=== PATIENT | female | born 1930 | race Caucasian/White ===

== ENCOUNTER 2018-08-14 15:23 | Observation (INO) | payer MEDICARE, MEDICAID ==
[2018-08-14] MEDS ORDERED: Acetaminophen 325 MG Tab PO PRN (17:09)
[2018-08-14] MEDS ORDERED: Temazepam 15 MG Cap PO PRN (17:09)
[2018-08-14] MEDS ORDERED: Ondansetron 4 MG Tab.DIS PO PRN (17:09)
[2018-08-14] MEDS ORDERED: Sodium Chloride 0.9% 10 ML Syringe FLUSH PRN (17:09)
[2018-08-14] MEDS: Pantoprazole 40 MG Vial IVPUSH SCH (17:59)
[2018-08-14] MEDS ORDERED: Enoxaparin 40 MG/0.4 ML Syringe SUBCUT SCH (20:00)
[2018-08-14] MEDS ORDERED: cefTRIAXone 1 GM Vial IVPUSH SCH (20:00)
[2018-08-14] MEDS ORDERED: Sertraline 25 MG Tab PO SCH (20:00)
[2018-08-15] MEDS: Pantoprazole 40 MG Vial IVPUSH SCH (05:36)
[2018-08-15 07:56] VITALS: BP 122/64
[2018-08-15] MEDS ORDERED: Aspirin 81 MG Tab.Chew PO SCH (08:00)
[2018-08-15] MEDS ORDERED: atorvaSTATin 10 MG Tab PO SCH (08:00)
[2018-08-15] MEDS ORDERED: **PTOM** Lisinopril 20 MG Tab PO SCH (08:00)
[2018-08-15] MEDS: BUDESONIDE IH SCH (09:14)
[2018-08-15] MEDS: FORMOTEROL IH SCH (09:14)
[2018-08-15 10:09] LABS: CHLORIDE,CL 106 mEq/L (98-106); SODIUM,NA 143 mEq/L (136-145)
[2018-08-15] MEDS ORDERED: Albuterol 8 GM Inhaler INH PRN (12:00)
[2018-08-15] MEDS ORDERED: ATORVASTATIN 80 MG PO SCH (20:00)
[2018-08-15] MEDS ORDERED: Pantoprazole 40 MG Vial IVPUSH SCH (20:00)
--- NOTE | 2018-08-15 21:06 | PCM.DCSUM1 ---
Discharge Summary - Hospital Course Free Text/Narrative:: Patient admitted from clinic with TIA. Had been more unsteady in the am, speech not as clear. Family concerned was having another stroke. 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 She has had difficulty with dysphagia at times since the stroke, does have to thicken her liquids at times and remind her to slow down as she does cough a great deal with eating. Admitted for stroke protocol, telemetry and CT scan of her head. Diagnosis: Stroke: No Modified Kings Scale: No Symptoms at All Modified Kings Scale Score: 0 - Discharge Data Discharge Date: 08/15/18 Discharge Disposition: Home, Self-Care 01 Condition: Good - Patient Summary/Data Complications: none Hospital Course: Patient has been stable. CT scan of the head did not show any acute changes. Did have a CVA 2 years ago and again 2 months ago. She did have an echo and CTA of her carotids 2 months ago in [place]. Rhythm appeared negative on exam in clinic, EKG was done with NSR. Telemetry has been regular rhythm. Labs stable. Does continue to have tremors to all 4 extremities at times. Has mild weakness in right arm and leg. Ambulating with walker and staff. Admits to feeling better today. Blood sugars have remained stable. Urine did show small amount of leukocytes so treated with Rocephin Will return home with daughter to care for her. Start Ceftin 250 mg twice a day for 7 days. - Patient Instructions Diet: Usual Diet as Tolerated Activity: As Tolerated - Discharge Plan *PRESCRIPTION DRUG MONITORING PROGRAM REVIEWED*: No *COPY OF PRESCRIPTION DRUG MONITORING REPORT IN PATIENT JUSTINA: No Prescriptions/Med Rec: Cefuroxime Axetil [Ceftin] 250 mg PO BID #14 tablet Home Medications: Home Meds Sertraline HCl [Zoloft] 50 mg PO BEDTIME 12/01/13 [History] Lisinopril [Zestril] 10 mg PO DAILY 04/24/14 [History] Acetaminophen [Tylenol Extra Strength] 500 mg PO Q8H PRN 06/15/16 [History] Budesonide/Formoterol [Symbicort 160-4.5 MCG] 10.2 gm IH ASDIRECTED PRN [History] atorvaSTATin [Lipitor] 80 mg PO BEDTIME 06/15/16 [History] Aspirin 81 mg PO DAILY 12/03/16 [History] Albuterol [Ventolin HFA] 1 puff INH Q6HR PRN 08/15/18 [History] Cefuroxime Axetil [Ceftin] 250 mg PO BID #14 tablet 08/15/18 [Rx] Patient Handouts: Urinary Tract Infection, Adult Referrals: Kehinde Nesbitt MD [Primary Care Provider] - (Follow up with Dr. Nesbitt in 10 days ) - Discharge Summary/Plan Comment DC Time >30 min.: No - General Info Date of Service: 08/15/18 Admission Dx/Problem (Free Text: TIA Functional Status: Reports: Pain Controlled, Tolerating Diet, Ambulating, Urinating - Review of Systems General: Reports: Weakness HEENT: Reports: No Symptoms Pulmonary: Reports: Cough. Denies: Shortness of Breath Cardiovascular: Denies: Chest Pain, Edema, Lightheadedness Gastrointestinal: Denies: Abdominal Pain, Nausea, Vomiting Musculoskeletal: Reports: No Symptoms Neurological: Reports: Pre-Existing Deficit - Patient Data Vitals - Most Recent: Last Vital Signs Temp 98.1 F 08/15/18 07:55 Pulse 62 08/15/18 07:55 Resp 20 08/15/18 07:55 BP 122/64 08/15/18 08:18 Pulse Ox 94 L 08/15/18 07:55 Weight - Most Recent: 140 lb 1.6 oz Lab Results - Last 24 hrs: Laboratory Results - last 24 hr 08/14/18 08/15/18 Range/Units 17:38 07:39 Sodium 143 (136-145) mEq/L Potassium 4.5 (3.5-5.0) mEq/L Chloride 106 (98-106) mEq/L POC Glucose 73 L (75-105) mg/dl CHRIS Results - Last 24 hrs: Microbiology 08/14/18 19:25 Urine Culture - Preliminary Urine, Voided Gram Negative Rods Med Orders - Current: Current Medications Discontinued Medications Acetaminophen (Tylenol) 650 mg PO Q4H PRN PRN Reason: Pain (Mild 1-3)/fever Albuterol (Ventolin Hfa) 0 gm INH Q6H PRN PRN Reason: Shortness of Breath Aspirin (Aspirin) 81 mg PO DAILY [facility] Last Admin: 08/15/18 07:35 Dose: 81 mg Atorvastatin Calcium (Lipitor) 80 mg PO DAILY [facility] Last Admin: 08/15/18 08:37 Dose: Not Given Ceftriaxone Sodium (Rocephin) 1 gm IVPUSH Q24H [facility] Last Admin: 08/14/18 19:49 Dose: 1 gm Enoxaparin Sodium (Lovenox) 40 mg SUBCUT BEDTIME [facility] Last Admin: 08/14/18 19:49 Dose: 40 mg Lisinopril (Prinivil) 10 mg PO DAILY [facility] Last Admin: 08/15/18 08:18 Dose: 10 mg Ptom Budesonide/Formoterol 160mcg/4. 5mcg Inh 0 gm IH BID [facility] Last Admin: 08/15/18 09:14 Dose: Not Given Ptom Atorvastatin 80 Mg Tab 80 mg PO BEDTIME [facility] Ondansetron HCl (Zofran Odt) 4 mg PO Q4H PRN PRN Reason: nausea, able to take PO Last Admin: 08/14/18 19:55 Dose: 4 mg Pantoprazole Sodium (Protonix Iv) 40 mg IVPUSH Q12H [facility] Last Admin: 08/15/18 05:36 Dose: 40 mg Pantoprazole Sodium (Protonix Iv) 40 mg IVPUSH 08,1999 [facility] Sertraline HCl (Zoloft) 50 mg PO BEDTIME [facility] Last Admin: 08/15/18 08:11 Dose: Not Given Sodium Chloride (Saline Flush) 10 ml FLUSH ASDIRECTED PRN PRN Reason: Keep Vein Open Temazepam (Restoril) 15 mg PO BEDTIME PRN PRN Reason: Sleep - Exam General: Reports: Alert, Oriented HEENT: Reports: Mucous Membr. Moist/[place]: Reports: Supple Lungs: Reports: Clear to Auscultation, Normal Respiratory Effort Cardiovascular: Reports: Regular Rate, Regular Rhythm GI/Abdominal Exam: Normal Bowel Sounds, Soft, Non-Tender Extremities: Normal Inspection, No Pedal Edema Skin: Reports: Warm, Dry Neurological: Reports: Other (mild weakness noted in right arm and leg)
== END 2018-08-15 09:40 | disposition home or self-care (01) ==
LOC: UNDOADMOB 15:23 → CC.MS 15:23
PROVIDERS: ADMIT Family Medicine; ATTEND Family Medicine
DX: G45.9 Transient cerebral ischemic attack, unspecified (principal); I10 Essential (primary) hypertension; E78.5 Hyperlipidemia, unspecified; J44.9 Chronic obstructive pulmonary disease, unspecified; E11.9 Type 2 diabetes mellitus without complications; F32.9 Major depressive disorder, single episode, unspecified; E53.8 Deficiency of other specified B group vitamins; Z86.73 Personal history of transient ischemic attack (TIA), and cerebral infarction without residual deficits; Z79.82 Long term (current) use of aspirin; Z79.899 Other long term (current) drug therapy
CPT/HCPCS: 36415; 70450; 80053; 81001; 82550; 82962; 85025; 87086; 87088; 87186; 93005; 93010; 96372; 96374; 96375; 96376; 99217; 99220; A9270; C9113; G0378; J0696; J1650

== ENCOUNTER 2020-10-02 01:22 | Inpatient (IN) | payer MEDICARE, MEDICAID ==
[2020-10-02 02:07] LABS: CHLORIDE,CL 99 mEq/L (98-106); SODIUM,NA 136 mEq/L (136-145)
--- NOTE | 2020-10-02 02:19 | EDM.PDOC ---
ED HPI GENERAL MEDICAL PROBLEM - General Chief Complaint: General Stated Complaint: general Time Seen by Provider: 10/02/20 01:30 Source of Information: Reports: EMS, RN History Limitations: Reports: Altered Mental Status, Uncooperative - History of Present Illness INITIAL COMMENTS - FREE TEXT/NARRATIVE: Pt was brought in by [facility]. Family called the ambulance because she wasn't acting her normal. wanted to stay covered up and tucked in. Wasn't as cooperative, and couldn't get her up to do anything. They were unsure of why they were trying to get her up at 2330. Family states that the last known well that they reported to the ambulance was 2330. She has history of TIA in the past and they are concerned that she had stroke. EMS relates that the house is very unkept. Family is not available to ask questions to and phone number on paperwork is disconnected. Family told the EMS crew that she does not take any prescription meds but her clinic chart states that she should be on lisinopril, atorvastatin, ASA, sertraline, plavix, symbicort and proair. They did bring in a bag of OTC supplements. She is moving all extremities on arrival. The words that she does say are not slurred. 0300-Daughter Carri did call the ER and she states that they had been living on the streets homeless in [place] for 8.5 months and that she doesn't have medicaid at this time so she hasn't been in to clinic. She hasn't given her any prescription meds in some time because she was out of them. She states that the Plavix was stopped in [place] and was told to take baby ASA. She states that tonight she had checked on her at 2330 and that she was sleeping and breathing and then shortly after that she had gotten up to the bathroom and was acting confused and not making any sense and just wanted to go back to bed. She ate normal meal at 1800 tonight and typically drinks well. Daughter states that she uses the wheelchair most of the time but can walk with the walker for short periods. She says that she needs some assistance off the toilet at times but can wipe herself and does have accidents at times. Does wear incontinence pad. Denies that she has fallen recently. She denies that she has been coughing or had any complaints at home prior to the confusion. EMS reports that she did have an emesis in the ambulance enroute. Onset: Unknown/Unsure Location: Reports: Generalized - Related Data Allergies Allergy/AdvReac Type Severity Reaction Status Date / Time aresols Allergy Difficulty Uncoded 10/02/20 03:34 Breathing Home Meds: Home Meds Acetaminophen [Tylenol Extra Strength] 500 mg PO Q8H PRN 06/15/16 [History] Aspirin 81 mg PO DAILY 12/03/16 [History] Past Medical History HEENT History: Reports: Allergic Rhinitis, Glaucoma, Impaired Vision Other HEENT History: wears glasses Cardiovascular History: Reports: CAD, High Cholesterol, Hypertension Respiratory History: Reports: Asthma, COPD Gastrointestinal History: Reports: None, GERD Genitourinary History: Reports: Other (See Below) Other Genitourinary History: frequency due to weak bladder Musculoskeletal History: Reports: Back Pain, Chronic Neurological History: Reports: CVA, Headaches, Chronic Psychiatric History: Reports: Depression Endocrine/Metabolic History: Reports: Diabetes, Type II Hematologic History: Reports: Blood Transfusion(s) Immunologic History: Reports: None Oncologic (Cancer) History: Reports: Breast Dermatologic History: Reports: None - Infectious Disease History Infectious Disease History: Reports: MRSA, Other (See Below) Other Infectious Disease History: Cleared MRSA x3 - Past Surgical History Head Surgeries/Procedures: Reports: None GI Surgical History: Reports: Appendectomy, Cholecystectomy Musculoskeletal Surgical History: Reports: Knee Replacement Social & Family History - Caffeine Use Caffeine Use: Reports: Coffee, Soda, Tea - Living Situation & Occupation Living situation: Reports: , Other (living in a house in [place] currently with up to 15 people living in it.) ED ROS GENERAL - Review of Systems Review Of Systems: See Below Constitutional: Reports: Fever, Chills, Weakness HEENT: Reports: No Symptoms Respiratory: Denies: Shortness of Breath, Cough Cardiovascular: Reports: No Symptoms GI/Abdominal: Reports: Nausea, Vomiting : Reports: No Symptoms Musculoskeletal: Reports: No Symptoms Skin: Reports: No Symptoms Neurological: Reports: Confusion Psychiatric: Reports: Agitation, Confusion ED EXAM, GENERAL - Physical Exam Exam: See Below Exam Limited By: No Limitations General Appearance: Alert, Mild Distress Ear Exam: Bilateral Ear: TM normal Nose: Normal Inspection Throat/Mouth: Normal Inspection Head: Atraumatic Neck: Normal Inspection, Supple Respiratory/Chest: No Respiratory Distress, Lungs Clear, Normal Breath Sounds Cardiovascular: Regular Rate, Rhythm GI/Abdominal: Normal Bowel Sounds, Soft, Non-Tender, Other (dry heaving with small amount of emesis.) Extremities: Pedal Edema (2+ edema noted bilaterally) Neurological: Alert, Confused, Disoriented, Slow to Respond Skin Exam: Warm, Dry, Intact Course - Vital Signs Last Recorded V/S: Last Vital Signs Temp 101.7 F H 10/02/20 06:05 Pulse 81 10/02/20 06:05 Resp 20 10/02/20 06:05 BP 107/48 L 10/02/20 06:05 Pulse Ox 95 10/02/20 06:05 - Orders/Labs/Meds Orders: Active Orders 24 hr Category Date Time Status Chest 1V Frontal [CR] Stat Exams 10/02/20 03:08 Taken Head wo Cont [CT] Stat Exams 10/02/20 02:23 Taken CULTURE BLOOD [BC] Routine Lab 10/02/20 03:36 Received CULTURE BLOOD [BC] Routine Lab 10/02/20 03:36 Received Ondansetron [Zofran] Med 10/02/20 03:08 Active 4 mg IVPUSH Q6H PRN Sodium Chloride 0.9% [Normal Saline] 1,000 ml Med 10/02/20 03:15 Active IV ASDIRECTED Medication Orders Acetaminophen (Tylenol) 650 mg PO Q4H PRN PRN Reason: Pain (Mild 1-3)/fever Acetaminophen (Tylenol Extra Strength) 500 mg PO Q8H PRN PRN Reason: Pain Aspirin (Halfprin) 81 mg PO DAILY [facility] Ceftriaxone Sodium (Rocephin) 1 gm IVPUSH Q24H [facility] Last Admin: 10/02/20 04:44 Dose: 1 gm Documented by: BASIL Enoxaparin Sodium (Lovenox) 30 mg SUBCUT Q24H [facility] Last Admin: 10/02/20 04:45 Dose: 30 mg Documented by: BASIL Sodium Chloride (Normal Saline) 1,000 mls @ 75 mls/hr IV ASDIRECTED [facility] Last Admin: 10/02/20 03:42 Dose: 75 mls/hr Documented by: BASIL Lisinopril (Prinivil) 20 mg PO DAILY [facility] Last Admin: 10/02/20 04:48 Dose: Not Given Documented by: BASIL Ondansetron HCl (Zofran) 4 mg IVPUSH Q6H PRN PRN Reason: Nausea Last Admin: 10/02/20 03:11 Dose: 4 mg Documented by: BASIL Pantoprazole Sodium (Protonix Iv) 40 mg IVPUSH Q12H [facility] Last Admin: 10/02/20 04:40 Dose: 40 mg Documented by: BASIL Labs: Laboratory Tests 10/02/20 10/02/20 10/02/20 Range/Units 01:23 01:23 01:23 WBC 12.2 H (5.0-10.0) 10^3/uL RBC 4.84 (4.00-5.50) 10^6/uL Hgb 15.2 (12.0-16.0) g/dL Hct 46.7 (37.0-47.0) % MCV 96.5 H (82.0-94.0) fL MCH 31.4 (27.0-32.0) pg MCHC 32.5 L (33.0-38.0) g/dL RDW Coeff of Sylvie 14.2 (11.0-15.0) % Plt Count 197 (150-400) 10^3/uL Neut % (Auto) 80.4 (35-85) % Lymph % (Auto) 12.9 (10-55) % [place] % (Auto) 5.7 (0-16) % Eos % (Auto) 0.8 (0-5) % Baso % (Auto) 0.2 (0-3) % Neut # (Auto) 9.79 H (1.80-7.00) 10^3/uL Lymph # (Auto) 1.57 (1.00-4.80) 10^3/uL [place] # (Auto) 0.69 (0.00-0.80) 10^3/uL Eos # (Auto) 0.10 (0.00-0.45) 10^3/uL Baso # (Auto) 0.02 10^3/uL Sodium 136 (136-145) mEq/L Potassium 3.7 (3.5-5.0) mEq/L Chloride 99 (98-106) mEq/L Carbon Dioxide 29 (21-32) mmol/L BUN 15 (7-18) mg/dL Creatinine 0.9 (0.6-1.0) mg/dL Est Cr Clr Drug Dosing TNP Estimated GFR (MDRD) 59 L (>=60) mL/min Glucose 127 H D (75-99) mg/dL Calcium 9.3 (8.4-10.1) mg/dL Total Bilirubin 0.6 (0.0-1.0) mg/dL AST 17 (15-37) U/L ALT 13 (12-78) U/L Alkaline Phosphatase 102 (46-116) U/L C-Reactive Protein 0.2 (0.2-0.8) mg/dL Total Protein 7.6 (6.4-8.2) g/dL Albumin 3.5 (3.4-5.0) g/dL Urine Color Yellow (YELLOW) Urine Appearance Clear (CLEAR) Urine pH 8.5 H (4.5-8.0) Ur Specific Priddy 1.020 (1.003-1.020) Urine Protein Trace H (NEGATIVE) mg/dL Urine Glucose (UA) Negative (NEGATIVE) mg/dL Urine Ketones 15 H (NEGATIVE) mg/dL Urine Occult Blood Trace-lysed H (NEGATIVE) Urine Nitrite Negative (NEGATIVE) Urine Bilirubin Negative (NEGATIVE) Urine Urobilinogen 0.2 (0.2-1.0) EU/dL Ur Leukocyte Esterase Negative (NEGATIVE) Urine RBC 0-5 (0-5) /HPF Urine WBC Not seen (0-5) /HPF SARS CoV-2 RNA Rapid COLIN (NEGATIVE) 10/02/20 Range/Units 02:08 WBC (5.0-10.0) 10^3/uL RBC (4.00-5.50) 10^6/uL Hgb (12.0-16.0) g/dL Hct (37.0-47.0) % MCV (82.0-94.0) fL MCH (27.0-32.0) pg MCHC (33.0-38.0) g/dL RDW Coeff of Sylvie (11.0-15.0) % Plt Count (150-400) 10^3/uL Neut % (Auto) (35-85) % Lymph % (Auto) (10-55) % [place] % (Auto) (0-16) % Eos % (Auto) (0-5) % Baso % (Auto) (0-3) % Neut # (Auto) (1.80-7.00) 10^3/uL Lymph # (Auto) (1.00-4.80) 10^3/uL [place] # (Auto) (0.00-0.80) 10^3/uL Eos # (Auto) (0.00-0.45) 10^3/uL Baso # (Auto) 10^3/uL Sodium (136-145) mEq/L Potassium (3.5-5.0) mEq/L Chloride (98-106) mEq/L Carbon Dioxide (21-32) mmol/L BUN (7-18) mg/dL Creatinine (0.6-1.0) mg/dL Est Cr Clr Drug Dosing Estimated GFR (MDRD) (>=60) mL/min Glucose (75-99) mg/dL Calcium (8.4-10.1) mg/dL Total Bilirubin (0.0-1.0) mg/dL AST (15-37) U/L ALT (12-78) U/L Alkaline Phosphatase (46-116) U/L C-Reactive Protein (0.2-0.8) mg/dL Total Protein (6.4-8.2) g/dL Albumin (3.4-5.0) g/dL Urine Color (YELLOW) Urine Appearance (CLEAR) Urine pH (4.5-8.0) Ur Specific Priddy (1.003-1.020) Urine Protein (NEGATIVE) mg/dL Urine Glucose (UA) (NEGATIVE) mg/dL Urine Ketones (NEGATIVE) mg/dL Urine Occult Blood (NEGATIVE) Urine Nitrite (NEGATIVE) Urine Bilirubin (NEGATIVE) Urine Urobilinogen (0.2-1.0) EU/dL Ur Leukocyte Esterase (NEGATIVE) Urine RBC (0-5) /HPF Urine WBC (0-5) /HPF SARS CoV-2 RNA Rapid COLIN Negative (NEGATIVE) Meds: Medications Generic Name Dose Route Start Last Admin Trade Name Freq PRN Reason Stop Dose Admin Acetaminophen 650 mg 10/02/20 03:51 Tylenol PO Q4H PRN Pain (Mild 1-3)/fever Acetaminophen 500 mg 10/02/20 03:57 Tylenol Extra Strength PO Q8H PRN Pain Aspirin 81 mg 10/02/20 08:00 Halfprin PO DAILY [facility] Ceftriaxone Sodium 1 gm 10/02/20 04:00 10/02/20 04:44 Rocephin IVPUSH 1 gm Q24H [facility] Administration Enoxaparin Sodium 30 mg 10/02/20 04:00 10/02/20 04:45 Lovenox SUBCUT 30 mg Q24H [facility] Administration Sodium Chloride 1,000 mls @ 75 mls/hr 10/02/20 03:15 10/02/20 03:42 Normal Saline IV 75 mls/hr ASDIRECTED [facility] Administration Lisinopril 20 mg 10/02/20 04:00 10/02/20 04:48 Prinivil PO Not Given DAILY [facility] Ondansetron HCl 4 mg 10/02/20 03:08 10/02/20 03:11 Zofran IVPUSH 4 mg Q6H PRN Administration Nausea Pantoprazole Sodium 40 mg 10/02/20 04:00 10/02/20 04:40 Protonix Iv IVPUSH 40 mg Q12H [facility] Administration Discontinued Medications Generic Name Dose Route Start Last Admin Trade Name Freq PRN Reason Stop Dose Admin Acetaminophen 650 mg 10/02/20 04:24 10/02/20 04:48 Tylenol RECTAL 10/02/20 04:25 650 mg NOW ONE Administration Iopamidol 100 ml 10/02/20 07:13 [id number] (76%) IVPUSH 10/02/20 07:14 ONETIME ONE Labetalol HCl 20 mg 10/02/20 04:24 10/02/20 04:36 Normodyne IVPUSH 10/02/20 04:25 20 mg ONETIME ONE Administration Protocol - Re-Assessments/Exams Free Text/Narrative Re-Assessment/Exam: 10/02/20 03:31 Temp did go to 101.2- blood cultures were drawn. CXR and CT head are completed. pt will be admitted to acute status to work up the fever of unknown origin. Departure - Departure Time of Disposition: 03:30 Disposition: Admitted As Inpatient 68 Condition: Poor Clinical Impression: Fever, unknown origin, Confusion, Weakness - Discharge Information *PRESCRIPTION DRUG MONITORING PROGRAM REVIEWED*: Not Applicable *COPY OF PRESCRIPTION DRUG MONITORING REPORT IN PATIENT JUSTINA: Not Applicable Sepsis Event Note (ED) - Focused Exam Vital Signs: Vital Signs Temp Pulse Resp BP Pulse Ox 10/02/20 03:07 101.2 F H 102 H 24 H 187/99 H 91 L 10/02/20 02:27 190/90 H 10/02/20 01:53 106 H 32 H 93 L 10/02/20 01:35 100.1 F 103 H 94 L - Problem List & Annotations (1) Fever, unknown origin SNOMED Code(s): 7825037 Code(s): R50.9 - FEVER, UNSPECIFIED Status: Acute Priority: High Current Visit: Yes (2) Confusion SNOMED Code(s): 794346755 Code(s): R41.0 - DISORIENTATION, UNSPECIFIED Status: Acute Priority: High Current Visit: Yes (3) Weakness SNOMED Code(s): 69224718 Code(s): R53.1 - WEAKNESS Status: Acute Priority: High Current Visit: Yes - Problem List Review Problem List Initiated/Reviewed/Updated: Yes - My Orders Last 24 Hours: My Active Orders 10/02/20 02:23 Head wo Cont [CT] Stat 10/02/20 03:08 Chest 1V Frontal [CR] Stat Ondansetron [Zofran] 4 mg IVPUSH Q6H PRN 10/02/20 03:15 Sodium Chloride 0.9% [Normal Saline] 1,000 ml IV ASDIRECTED 10/02/20 03:36 CULTURE BLOOD [BC] Routine CULTURE BLOOD [BC] Routine - Assessment/Plan Admission H&P: Please use this note as an admission H&P Last 24 Hours: My Active Orders 10/02/20 02:23 Head wo Cont [CT] Stat 10/02/20 03:08 Chest 1V Frontal [CR] Stat Ondansetron [Zofran] 4 mg IVPUSH Q6H PRN 10/02/20 03:15 Sodium Chloride 0.9% [Normal Saline] 1,000 ml IV ASDIRECTED 10/02/20 03:36 CULTURE BLOOD [BC] Routine CULTURE BLOOD [BC] Routine Plan: Will be admitted to the hospital for further workup of fever of unknown origin. Will start IV antibiotics while blood cultures are pending. UA is negative at this time. will do follow up labs as needed. WIll start IV fluids to maintain hydration due to the vomiting and nausea.
[2020-10-02] MEDS ORDERED: Ondansetron 4 MG/2 ML SDV IVPUSH PRN (03:08)
[2020-10-02] MEDS: Sodium Chloride 0.9% 1,000 ML IV SCH ×2 (03:42→19:42)
[2020-10-02] MEDS ORDERED: Acetaminophen 325 MG Tab PO PRN (03:51)
[2020-10-02] MEDS ORDERED: Acetaminophen 500 MG Tab PO PRN (03:57)
[2020-10-02] MEDS ORDERED: Acetaminophen 650 MG Supp RECTAL ONE (04:24)
[2020-10-02] MEDS ORDERED: Labetalol 100 MG/20 ML MDV IVPUSH ONE (04:24)
[2020-10-02] MEDS: Pantoprazole 40 MG Vial IVPUSH SCH ×2 (04:40→16:59)
[2020-10-02] MEDS: cefTRIAXone 1 GM Vial IVPUSH SCH (04:44)
[2020-10-02] MEDS: Enoxaparin 30 MG/0.3 ML Syringe SUBCUT SCH (04:45)
[2020-10-02] MEDS: Lisinopril 20 MG Tab PO SCH ×2 (04:48→08:37)
[2020-10-02] MEDS ORDERED: Iopamidol 755 Mg/ML 100 ML Bottle IVPUSH ONE (07:13)
[2020-10-02] MEDS: Aspirin 81 MG Tab.EC PO SCH (08:35)
[2020-10-02] MEDS ORDERED: Clopidogrel 75 MG Tab PO SCH (13:15)
[2020-10-02] MEDS: Formoterol/Mometasone 200-5 MCG 8.8 GM Inhaler IH SCH (19:41)
[2020-10-02] MEDS: Clopidogrel 75 MG Tab PO SCH (19:41)
[2020-10-03] MEDS: Pantoprazole 40 MG Vial IVPUSH SCH ×2 (04:05→16:23)
[2020-10-03] MEDS: Enoxaparin 30 MG/0.3 ML Syringe SUBCUT SCH (04:05)
[2020-10-03] MEDS: cefTRIAXone 1 GM Vial IVPUSH SCH (04:05)
[2020-10-03] MEDS: atorvaSTATin 20 MG Tab PO SCH (07:58)
[2020-10-03] MEDS: Aspirin 81 MG Tab.EC PO SCH (07:58)
[2020-10-03] MEDS: Formoterol/Mometasone 200-5 MCG 8.8 GM Inhaler IH SCH ×2 (07:59→19:45)
[2020-10-03] MEDS: Lisinopril 10 MG Tab PO SCH (08:41)
--- NOTE | 2020-10-03 11:26 | PCM.PN ---
- General Info Date of Service: 10/03/20 Admission Dx/Problem (Free Text): Fever of unknown origin Confusion Weakness Subjective Update: Patient is alert, up in chair this am. Ambulated to bathroom and had a shower. Denies any pain. No shortness of breath or chest discomfort. Is oriented and answers all questions today. Admits to having some difficulty with meals and intake due to stroke 5 years ago. Has no teeth and dysphagia, does well with pureed foods. Functional Status: Reports: Pain Controlled, Tolerating Diet, Ambulating, Urinating - Review of Systems General: Reports: Fatigue, Malaise. Denies: Fever HEENT: Denies: Ear Pain, Sinus Congestion, Sore Throat Pulmonary: Denies: Shortness of Breath, Cough Cardiovascular: Reports: Edema (patient states chronic edema in legs. "they tell me to elevate above my heart but I don't physically think that is possible"). Denies: Chest Pain, Lightheadedness Gastrointestinal: Denies: Abdominal Pain, Nausea, Vomiting Genitourinary: Denies: Dysuria, Frequency Musculoskeletal: Reports: No Symptoms Skin: Reports: No Symptoms Neurological: Reports: Weakness - Patient Data Vitals - Most Recent: Last Vital Signs Temp 97.8 F 10/03/20 07:57 Pulse 62 10/03/20 07:57 Resp 18 10/03/20 07:57 BP 114/48 L 10/03/20 08:41 Pulse Ox 97 10/03/20 07:57 Weight - Most Recent: 116 lb 1.6 oz I&O - Last 24 Hours: Intake & Output 10/02/20 10/03/20 10/03/20 22:59 06:59 14:59 Intake Total 1400 115 Output Total 400 Balance 1400 -285 Lab Results Last 24 Hours: Laboratory Results - last 24 hr 10/03/20 10/03/20 Range/Units 07:00 07:00 WBC 7.3 (5.0-10.0) 10^3/uL RBC 4.06 (4.00-5.50) 10^6/uL Hgb 12.8 (12.0-16.0) g/dL Hct 39.7 (37.0-47.0) % MCV 97.8 H (82.0-94.0) fL MCH 31.5 (27.0-32.0) pg MCHC 32.2 L (33.0-38.0) g/dL RDW Coeff of Sylvie 14.5 (11.0-15.0) % Plt Count 159 (150-400) 10^3/uL Neut % (Auto) 67.7 (35-85) % Lymph % (Auto) 22.6 (10-55) % Cowley % (Auto) 7.9 (0-16) % Eos % (Auto) 1.5 (0-5) % Baso % (Auto) 0.3 (0-3) % Neut # (Auto) 4.97 (1.80-7.00) 10^3/uL Lymph # (Auto) 1.66 (1.00-4.80) 10^3/uL Cowley # (Auto) 0.58 (0.00-0.80) 10^3/uL Eos # (Auto) 0.11 (0.00-0.45) 10^3/uL Baso # (Auto) 0.02 10^3/uL Sodium 140 (136-145) mEq/L Potassium 3.5 (3.5-5.0) mEq/L Chloride 107 H (98-106) mEq/L Carbon Dioxide 30 (21-32) mmol/L BUN 21 H (7-18) mg/dL Creatinine 1.0 (0.6-1.0) mg/dL Est Cr Clr Drug Dosing 30.76 mL/min Estimated GFR (MDRD) 52 L (>=60) mL/min Glucose 99 (75-99) mg/dL Calcium 7.9 L (8.4-10.1) mg/dL Vitamin B12 194 (193-986) PG/ML Drew Results Last 24 Hours: Microbiology 10/02/20 03:36 Aerobic Blood Culture - Preliminary Blood NO GROWTH AFTER 1 DAY Anaerobic Blood Culture - Final 10/02/20 03:36 Aerobic Blood Culture - Preliminary Blood NO GROWTH AFTER 1 DAY Anaerobic Blood Culture - Final Med Orders - Current: Current Medications Acetaminophen (Tylenol) 650 mg PO Q4H PRN PRN Reason: Pain (Mild 1-3)/fever Aspirin (Halfprin) 81 mg PO DAILY [facility] Last Admin: 10/03/20 07:58 Dose: 81 mg Documented by: Atorvastatin Calcium (Lipitor) 40 mg PO DAILY [facility] Last Admin: 10/03/20 07:58 Dose: 40 mg Documented by: Ceftriaxone Sodium (Rocephin) 1 gm IVPUSH Q24H [facility] Last Admin: 10/03/20 04:05 Dose: 1 gm Documented by: Clopidogrel Bisulfate (Plavix) 75 mg PO DAILY@1999 [facility] Last Admin: 10/02/20 19:41 Dose: 75 mg Documented by: Enoxaparin Sodium (Lovenox) 30 mg SUBCUT Q24H [facility] Last Admin: 10/03/20 04:05 Dose: 30 mg Documented by: Sodium Chloride (Normal Saline) 1,000 mls @ 75 mls/hr IV ASDIRECTED [facility] Last Admin: 10/02/20 19:42 Dose: 75 mls/hr Documented by: Lisinopril (Prinivil) 10 mg PO DAILY [facility] Last Admin: 10/03/20 08:41 Dose: Not Given Documented by: Mometasone Furoate/Formoterol Fumar (Dulera 200-5 Mcg) 2 puff IH BID [facility] Last Admin: 10/03/20 07:59 Dose: 2 puff Documented by: Ondansetron HCl (Zofran) 4 mg IVPUSH Q6H PRN PRN Reason: Nausea Last Admin: 10/02/20 03:11 Dose: 4 mg Documented by: Pantoprazole Sodium (Protonix Iv) 40 mg IVPUSH Q12H [facility] Last Admin: 10/03/20 04:05 Dose: 40 mg Documented by: Discontinued Medications Acetaminophen (Tylenol Extra Strength) 500 mg PO Q8H PRN PRN Reason: Pain Acetaminophen (Tylenol) 650 mg RECTAL NOW ONE Stop: 10/02/20 04:25 Last Admin: 10/02/20 04:48 Dose: 650 mg Documented by: Clopidogrel Bisulfate (Plavix) 75 mg PO DAILY [facility] Last Admin: 10/02/20 17:09 Dose: Not Given Documented by: Iopamidol (Isovue-370 (76%)) 100 ml IVPUSH ONETIME ONE Stop: 10/02/20 07:14 Last Admin: 10/02/20 08:33 Dose: 100 ml Documented by: Labetalol HCl (Normodyne) 20 mg IVPUSH ONETIME ONE; Protocol Stop: 10/02/20 04:25 Last Admin: 10/02/20 04:36 Dose: 20 mg Documented by: Lisinopril (Prinivil) 20 mg PO DAILY [facility] Last Admin: 10/02/20 08:37 Dose: 20 mg Documented by: - Exam General: Alert, Oriented, Cooperative HEENT: Mucous Membr. Moist/[place]ki Neck: Supple Lungs: Clear to Auscultation, Normal Respiratory Effort Cardiovascular: Regular Rate, Regular Rhythm GI/Abdominal Exam: Normal Bowel Sounds, Soft, Non-Tender Extremities: Pedal Edema (has some redness to right ankle/foot, no open areas, no warmth. ) Skin: Warm, Dry Neurological: No New Focal Deficit Sepsis Event Note - Evaluation Sepsis Screening Result: No Definite Risk - Focused Exam Vital Signs: Vital Signs Temp Pulse Resp BP BP BP Pulse Ox 10/03/20 08:41 114/48 L 10/03/20 07:57 97.8 F 62 18 114/48 L 97 10/03/20 04:00 97.4 F 67 18 128/58 L 95 10/03/20 03:52 95 10/03/20 00:00 98.1 F 72 18 122/55 L 97 - Problem List & Annotations (1) Confusion SNOMED Code(s): 186101113 Code(s): R41.0 - DISORIENTATION, UNSPECIFIED Status: Acute Priority: High Current Visit: Yes (2) Fever, unknown origin SNOMED Code(s): 1363222 Code(s): R50.9 - FEVER, UNSPECIFIED Status: Acute Priority: High Current Visit: Yes (3) Weakness SNOMED Code(s): 00391393 Code(s): R53.1 - WEAKNESS Status: Acute Priority: High Current Visit: Yes - Problem List Review Problem List Initiated/Reviewed/Updated: Yes - Assessment Assessment:: Fever of unknown origin Weakness Confusion - Plan Plan:: Patient much improved today. Labs are all stable. Eating well. Will stop IV fluids. Encourage ambulation. Continue to follow.
[2020-10-03] MEDS: Clopidogrel 75 MG Tab PO SCH (19:44)
[2020-10-04] MEDS: cefTRIAXone 1 GM Vial IVPUSH SCH (04:12)
[2020-10-04] MEDS: Enoxaparin 30 MG/0.3 ML Syringe SUBCUT SCH (04:12)
[2020-10-04] MEDS: Pantoprazole 40 MG Vial IVPUSH SCH ×2 (04:12→16:35)
[2020-10-04 07:13] LABS: CHLORIDE,CL 112 mEq/L (98-106); SODIUM,NA 148 mEq/L (136-145)
[2020-10-04] MEDS: atorvaSTATin 20 MG Tab PO SCH (07:26)
[2020-10-04] MEDS: Lisinopril 10 MG Tab PO SCH (07:26)
[2020-10-04] MEDS: Aspirin 81 MG Tab.EC PO SCH (07:26)
[2020-10-04] MEDS: Formoterol/Mometasone 200-5 MCG 8.8 GM Inhaler IH SCH ×2 (07:35→19:50)
--- NOTE | 2020-10-04 10:08 | PCM.PN ---
- General Info Date of Service: 10/04/20 Admission Dx/Problem (Free Text): Fever of unknown origin Confusion Weakness Subjective Update: Patient is alert, up in chair this am. Ambulated to bathroom and had a shower. Denies any pain. No shortness of breath or chest discomfort. Is oriented and answers all questions today. Admits to having some difficulty with meals and intake due to stroke 5 years ago. Has no teeth and dysphagia, does well with pureed foods. 10-04-2020 Patient is feeling good this am. Alert and oriented, appropriate with conversation. Aware of what vital signs even were last night. Denies any shortness of breath, chest pain, nausea or vomiting. No abdominal pain. Good appetite, feeds self. Ambulates in room without difficult. Functional Status: Reports: Pain Controlled, Tolerating Diet, Ambulating, Urinating - Review of Systems General: Denies: Fever, Weakness, Fatigue, Malaise HEENT: Reports: No Symptoms Pulmonary: Denies: Shortness of Breath, Cough Cardiovascular: Denies: Chest Pain, Edema, Lightheadedness Gastrointestinal: Denies: Abdominal Pain, Nausea, Vomiting Genitourinary: Reports: No Symptoms Musculoskeletal: Reports: No Symptoms Skin: Reports: No Symptoms Neurological: Reports: No Symptoms - Patient Data Vitals - Most Recent: Last Vital Signs Temp 98.6 F 10/04/20 07:29 Pulse 70 10/04/20 07:29 Resp 20 10/04/20 07:29 BP 181/68 H 10/04/20 07:29 Pulse Ox 98 10/04/20 07:29 Weight - Most Recent: 119 lb I&O - Last 24 Hours: Intake & Output 10/03/20 10/04/20 10/04/20 22:59 06:59 14:59 Intake Total 550 100 Output Total 700 Balance 550 -600 Lab Results Last 24 Hours: Laboratory Results - last 24 hr 10/04/20 10/04/20 Range/Units 06:55 06:55 WBC 4.6 L (5.0-10.0) 10^3/uL RBC 4.20 (4.00-5.50) 10^6/uL Hgb 13.0 (12.0-16.0) g/dL Hct 41.0 (37.0-47.0) % MCV 97.6 H (82.0-94.0) fL MCH 31.0 (27.0-32.0) pg MCHC 31.7 L (33.0-38.0) g/dL RDW Coeff of Sylvie 14.3 (11.0-15.0) % Plt Count 153 (150-400) 10^3/uL Neut % (Auto) 56.6 (35-85) % Lymph % (Auto) 29.2 (10-55) % Weld % (Auto) 9.9 (0-16) % Eos % (Auto) 4.1 (0-5) % Baso % (Auto) 0.2 (0-3) % Neut # (Auto) 2.62 (1.80-7.00) 10^3/uL Lymph # (Auto) 1.35 (1.00-4.80) 10^3/uL Weld # (Auto) 0.46 (0.00-0.80) 10^3/uL Eos # (Auto) 0.19 (0.00-0.45) 10^3/uL Baso # (Auto) 0.01 10^3/uL Sodium 148 H (136-145) mEq/L Potassium 4.1 (3.5-5.0) mEq/L Chloride 112 H (98-106) mEq/L Carbon Dioxide 32 (21-32) mmol/L BUN 14 (7-18) mg/dL Creatinine 0.8 (0.6-1.0) mg/dL Est Cr Clr Drug Dosing 38.44 mL/min Estimated GFR (MDRD) > 60 (>=60) mL/min Glucose 108 H (75-99) mg/dL Calcium 8.5 (8.4-10.1) mg/dL Drew Results Last 24 Hours: Microbiology 10/02/20 03:36 Aerobic Blood Culture - Preliminary Blood NO GROWTH AFTER 2 DAYS Anaerobic Blood Culture - Final 10/02/20 03:36 Aerobic Blood Culture - Preliminary Blood NO GROWTH AFTER 2 DAYS Anaerobic Blood Culture - Final Med Orders - Current: Current Medications Acetaminophen (Tylenol) 650 mg PO Q4H PRN PRN Reason: Pain (Mild 1-3)/fever Last Admin: 10/03/20 20:00 Dose: 650 mg Documented by: Aspirin (Halfprin) 81 mg PO DAILY [facility] Last Admin: 10/04/20 07:26 Dose: 81 mg Documented by: Atorvastatin Calcium (Lipitor) 40 mg PO DAILY [facility] Last Admin: 10/04/20 07:26 Dose: 40 mg Documented by: Ceftriaxone Sodium (Rocephin) 1 gm IVPUSH Q24H [facility] Last Admin: 10/04/20 04:12 Dose: 1 gm Documented by: Clopidogrel Bisulfate (Plavix) 75 mg PO DAILY@1999 [facility] Last Admin: 10/03/20 19:44 Dose: 75 mg Documented by: Enoxaparin Sodium (Lovenox) 30 mg SUBCUT Q24H [facility] Last Admin: 10/04/20 04:12 Dose: 30 mg Documented by: Lisinopril (Prinivil) 10 mg PO DAILY [facility] Last Admin: 10/04/20 07:26 Dose: 10 mg Documented by: Mometasone Furoate/Formoterol Fumar (Dulera 200-5 Mcg) 2 puff IH BID [facility] Last Admin: 10/04/20 07:35 Dose: 2 puff Documented by: Ondansetron HCl (Zofran) 4 mg IVPUSH Q6H PRN PRN Reason: Nausea Last Admin: 10/02/20 03:11 Dose: 4 mg Documented by: Pantoprazole Sodium (Protonix Iv) 40 mg IVPUSH Q12H [facility] Last Admin: 10/04/20 04:12 Dose: 40 mg Documented by: Discontinued Medications Acetaminophen (Tylenol Extra Strength) 500 mg PO Q8H PRN PRN Reason: Pain Acetaminophen (Tylenol) 650 mg RECTAL NOW ONE Stop: 10/02/20 04:25 Last Admin: 10/02/20 04:48 Dose: 650 mg Documented by: Clopidogrel Bisulfate (Plavix) 75 mg PO DAILY [facility] Last Admin: 10/02/20 17:09 Dose: Not Given Documented by: Sodium Chloride (Normal Saline) 1,000 mls @ 75 mls/hr IV ASDIRECTED [facility] Last Admin: 10/02/20 19:42 Dose: 75 mls/hr Documented by: Iopamidol (Isovue-370 (76%)) 100 ml IVPUSH ONETIME ONE Stop: 10/02/20 07:14 Last Admin: 10/02/20 08:33 Dose: 100 ml Documented by: Labetalol HCl (Normodyne) 20 mg IVPUSH ONETIME ONE; Protocol Stop: 10/02/20 04:25 Last Admin: 10/02/20 04:36 Dose: 20 mg Documented by: Lisinopril (Prinivil) 20 mg PO DAILY [facility] Last Admin: 10/02/20 08:37 Dose: 20 mg Documented by: - Exam General: Alert, Oriented, Cooperative HEENT: Mucous Membr. Moist/[place] Neck: Supple Lungs: Clear to Auscultation, Normal Respiratory Effort Cardiovascular: Regular Rate, Regular Rhythm GI/Abdominal Exam: Normal Bowel Sounds, Soft, Non-Tender Extremities: Normal Inspection, Pedal Edema (trace) Skin: Warm, Dry Neurological: No New Focal Deficit Sepsis Event Note - Evaluation Sepsis Screening Result: No Definite Risk - Focused Exam Vital Signs: Vital Signs Temp Pulse Resp BP BP Pulse Ox 10/04/20 07:29 98.6 F 70 20 181/68 H 98 10/04/20 07:26 181/68 H 10/04/20 04:00 97.9 F 60 18 145/69 H 94 L 10/04/20 00:00 97.4 F 77 18 140/79 96 - Problem List & Annotations (1) Confusion SNOMED Code(s): 139402757 Code(s): R41.0 - DISORIENTATION, UNSPECIFIED Status: Acute Priority: High Current Visit: Yes (2) Fever, unknown origin SNOMED Code(s): 3674284 Code(s): R50.9 - FEVER, UNSPECIFIED Status: Acute Priority: High Current Visit: Yes (3) Weakness SNOMED Code(s): 82787833 Code(s): R53.1 - WEAKNESS Status: Acute Priority: High Current Visit: Yes - Problem List Review Problem List Initiated/Reviewed/Updated: Yes - Assessment Assessment:: Fever of unknown origin Weakness Confusion - Plan Plan:: Patient much improved today. Labs are all stable. Eating well. Will stop IV fluids. Encourage ambulation. Continue to follow. 10-04-2020 Patient is doing well. Labs remain stable. Will likely discharge home tomorrow after meets with long term care social worker, determine need for home health.
[2020-10-04] MEDS: Clopidogrel 75 MG Tab PO SCH (19:50)
[2020-10-05] MEDS: Pantoprazole 40 MG Vial IVPUSH SCH (04:14)
[2020-10-05] MEDS: cefTRIAXone 1 GM Vial IVPUSH SCH (04:14)
[2020-10-05] MEDS: Enoxaparin 30 MG/0.3 ML Syringe SUBCUT SCH (04:15)
[2020-10-05 04:27] VITALS: PULSE 68
[2020-10-05 07:27] LABS: CHLORIDE,CL 112 mEq/L (98-106); SODIUM,NA 146 mEq/L (136-145)
[2020-10-05 08:11] VITALS: BP 178/81
[2020-10-05] MEDS: Lisinopril 10 MG Tab PO SCH (08:11)
[2020-10-05] MEDS: Formoterol/Mometasone 200-5 MCG 8.8 GM Inhaler IH SCH (08:11)
[2020-10-05] MEDS: Aspirin 81 MG Tab.EC PO SCH (08:11)
[2020-10-05] MEDS: atorvaSTATin 20 MG Tab PO SCH (08:11)
--- NOTE | 2020-10-05 09:35 | PCM.DCSUM1 ---
Discharge Summary - Hospital Course HPI Initial Comments: Vanita is an 89 yr old female who was brought in by [facility] on the 02 of October. Family called the ambulance because she wasn't acting her normal. Wanted to stay covered up and tucked in. Wasn't as cooperative, and couldn't get her up to do anything. They were unsure of why they were trying to get her up at 2330. Family states that the last known well that they reported to the ambulance was 2330 on the . She has history of TIA in the past and they were concerned that she had stroke. EMS relates that the house is very unkept. Family told the EMS crew that she does not take any prescription medications but her clinic chart states that she should be on lisinopril, atorvastatin, ASA, sertraline, Plavix, Symbicort and ProAir. They did bring in a bag of OTC supplements. She is moving all extremities on arrival. The words that she does say are not slurred. Admit provider did speak with her daughter (Carri) and she admitted she had been living on the streets homeless in [place] for 8.5 months and that she doesn't have medicaid at this time so she hasn't been in to clinic. She hadn't given her any prescription medications in some time because she was out of them. She states that the Plavix was stopped in [place] and was told to take baby ASA. - Discharge Data Discharge Date: 10/05/20 Discharge Disposition: Home, W Home Health Agency 06 Condition: Good - Referral to Home Health Date of Face to Face Encounter: 10/05/20 Reason for Homebound Status: Inability to drive due to weakness Primary Care Physician: PCP None Skilled Need: Nursing to monitor vital signs due to recent medication changes. Physicl therapy for strengthening. Occupational therapy for ADL's. - Discharge Diagnosis/Problem(s) (1) Confusion SNOMED Code(s): 639969387 ICD Code: R41.0 - DISORIENTATION, UNSPECIFIED Status: Resolved Priority: High Current Visit: Yes (2) Weakness SNOMED Code(s): 61794760 ICD Code: R53.1 - WEAKNESS Status: Acute Priority: High Current Visit: Yes - Patient Instructions Diet: Pureed Activity: As Tolerated - Discharge Plan *PRESCRIPTION DRUG MONITORING PROGRAM REVIEWED*: Not Applicable *COPY OF PRESCRIPTION DRUG MONITORING REPORT IN PATIENT JUSTINA: Not Applicable Home Medications: Home Meds Acetaminophen [Tylenol Extra Strength] 500 mg PO Q8H PRN 06/15/16 [History] Aspirin 81 mg PO DAILY 12/03/16 [History] Budesonide/Formoterol [Symbicort 160-4.5 MCG] 2 inh INH BID 10/02/20 [History] atorvaSTATin Calcium [Atorvastatin Calcium] 40 mg PO DAILY 10/02/20 [History] lisinopriL [Lisinopril] 10 mg PO DAILY 10/02/20 [History] Oxygen Therapy Mode: Room Air Forms: ED Department Discharge Referrals: PCP,None [Primary Care Provider] - - Discharge Summary/Plan Comment DC Time >30 min.: Yes Discharge Summary/Plan Comment: Will plan for discharge today. Will have home health out to evaluate along with physical therapy and occupational therapy. Patient is homebound secondary to weakness and inability to drive. Will resume home medications. - General Info Admission Dx/Problem (Free Text: Fever of unknown origin Confusion Weakness Subjective Update: Patient is alert, up in chair this am. Ambulated to bathroom and had a shower. Denies any pain. No shortness of breath or chest discomfort. Is oriented and answers all questions today. Admits to having some difficulty with meals and intake due to stroke 5 years ago. Has no teeth and dysphagia, does well with pureed foods. 10-04-2020 Patient is feeling good this am. Alert and oriented, appropriate with conversation. Aware of what vital signs even were last night. Denies any shortness of breath, chest pain, nausea or vomiting. No abdominal pain. Good appetite, feeds self. Ambulates in room without difficult. 10-05-2020 Vanita admits she is feeling well this morning. Doesn't recall why she is even here and wishes to go home. Denies any complaints and has been ambulatory with walker. Functional Status: Reports: Tolerating Diet, Ambulating, Urinating - Review of Systems General: Reports: Weakness HEENT: Reports: No Symptoms Pulmonary: Reports: No Symptoms Cardiovascular: Reports: No Symptoms Gastrointestinal: Reports: No Symptoms Genitourinary: Reports: No Symptoms Musculoskeletal: Reports: No Symptoms Skin: Reports: No Symptoms Neurological: Reports: No Symptoms Psychiatric: Reports: No Symptoms - Patient Data Vitals - Most Recent: Last Vital Signs Temp 98.2 F 10/05/20 08:00 Pulse 68 10/05/20 08:00 Resp 18 10/05/20 08:00 BP 178/81 H 10/05/20 08:11 Pulse Ox 97 10/05/20 08:00 Weight - Most Recent: 119 lb I&O - Last 24 hours: Intake & Output 10/04/20 10/05/20 10/05/20 22:59 06:59 14:59 Intake Total 1100 100 Output Total 400 600 Balance 700 -500 Lab Results - Last 24 hrs: Laboratory Results - last 24 hr 10/05/20 10/05/20 Range/Units 06:50 06:50 WBC 5.4 (5.0-10.0) 10^3/uL RBC 4.02 (4.00-5.50) 10^6/uL Hgb 12.6 (12.0-16.0) g/dL Hct 39.4 (37.0-47.0) % MCV 98.0 H (82.0-94.0) fL MCH 31.3 (27.0-32.0) pg MCHC 32.0 L (33.0-38.0) g/dL RDW Coeff of Sylvie 14.2 (11.0-15.0) % Plt Count 163 (150-400) 10^3/uL Neut % (Auto) 64.4 (35-85) % Lymph % (Auto) 23.4 (10-55) % Bennett % (Auto) 8.5 (0-16) % Eos % (Auto) 3.3 (0-5) % Baso % (Auto) 0.4 (0-3) % Neut # (Auto) 3.50 (1.80-7.00) 10^3/uL Lymph # (Auto) 1.27 (1.00-4.80) 10^3/uL Bennett # (Auto) 0.46 (0.00-0.80) 10^3/uL Eos # (Auto) 0.18 (0.00-0.45) 10^3/uL Baso # (Auto) 0.02 10^3/uL Sodium 146 H (136-145) mEq/L Potassium 4.4 (3.5-5.0) mEq/L Chloride 112 H (98-106) mEq/L Carbon Dioxide 31 (21-32) mmol/L BUN 13 (7-18) mg/dL Creatinine 0.7 (0.6-1.0) mg/dL Est Cr Clr Drug Dosing 43.94 mL/min Estimated GFR (MDRD) > 60 (>=60) mL/min Glucose 104 H (75-99) mg/dL Calcium 8.2 L (8.4-10.1) mg/dL CHRIS Results - Last 24 hrs: Microbiology 10/02/20 03:36 Aerobic Blood Culture - Preliminary Blood NO GROWTH AFTER 3 DAYS Anaerobic Blood Culture - Final 10/02/20 03:36 Aerobic Blood Culture - Preliminary Blood NO GROWTH AFTER 3 DAYS Anaerobic Blood Culture - Final Med Orders - Current: Current Medications Acetaminophen (Tylenol) 650 mg PO Q4H PRN PRN Reason: Pain (Mild 1-3)/fever Last Admin: 10/03/20 20:00 Dose: 650 mg Documented by: Aspirin (Halfprin) 81 mg PO DAILY [facility] Last Admin: 10/05/20 08:11 Dose: 81 mg Documented by: Atorvastatin Calcium (Lipitor) 40 mg PO DAILY [facility] Last Admin: 10/05/20 08:11 Dose: 40 mg Documented by: Ceftriaxone Sodium (Rocephin) 1 gm IVPUSH Q24H [facility] Last Admin: 10/05/20 04:14 Dose: 1 gm Documented by: Clopidogrel Bisulfate (Plavix) 75 mg PO DAILY@1999 [facility] Last Admin: 10/04/20 19:50 Dose: 75 mg Documented by: Enoxaparin Sodium (Lovenox) 30 mg SUBCUT Q24H [facility] Last Admin: 10/05/20 04:15 Dose: 30 mg Documented by: Lisinopril (Prinivil) 10 mg PO DAILY [facility] Last Admin: 10/05/20 08:11 Dose: 10 mg Documented by: Mometasone Furoate/Formoterol Fumar (Dulera 200-5 Mcg) 2 puff IH BID [facility] Last Admin: 10/05/20 08:11 Dose: 2 puff Documented by: Ondansetron HCl (Zofran) 4 mg IVPUSH Q6H PRN PRN Reason: Nausea Last Admin: 10/02/20 03:11 Dose: 4 mg Documented by: Pantoprazole Sodium (Protonix Iv) 40 mg IVPUSH Q12H [facility] Last Admin: 10/05/20 04:14 Dose: 40 mg Documented by: Discontinued Medications Acetaminophen (Tylenol Extra Strength) 500 mg PO Q8H PRN PRN Reason: Pain Acetaminophen (Tylenol) 650 mg RECTAL NOW ONE Stop: 10/02/20 04:25 Last Admin: 10/02/20 04:48 Dose: 650 mg Documented by: Clopidogrel Bisulfate (Plavix) 75 mg PO DAILY [facility] Last Admin: 10/02/20 17:09 Dose: Not Given Documented by: Sodium Chloride (Normal Saline) 1,000 mls @ 75 mls/hr IV ASDIRECTED [facility] Last Admin: 10/02/20 19:42 Dose: 75 mls/hr Documented by: Iopamidol (Isovue-370 (76%)) 100 ml IVPUSH ONETIME ONE Stop: 10/02/20 07:14 Last Admin: 10/02/20 08:33 Dose: 100 ml Documented by: Labetalol HCl (Normodyne) 20 mg IVPUSH ONETIME ONE; Protocol Stop: 10/02/20 04:25 Last Admin: 10/02/20 04:36 Dose: 20 mg Documented by: Lisinopril (Prinivil) 20 mg PO DAILY [facility] Last Admin: 10/02/20 08:37 Dose: 20 mg Documented by: - Exam General: Reports: Alert, Oriented, Cooperative, No Acute Distress Neck: Reports: Supple Lungs: Reports: Clear to Auscultation, Normal Respiratory Effort Cardiovascular: Reports: Regular Rate, Regular Rhythm GI/Abdominal Exam: Normal Bowel Sounds, Soft, Non-Tender Extremities: Normal Inspection, No Pedal Edema Skin: Reports: Warm, Dry, Intact Neurological: Reports: No New Focal Deficit Psy/Mental Status: Reports: Alert, Normal Affect, Normal Mood
== END 2020-10-05 12:08 | disposition home health service (06) | DRG 864 ==
LOC: CC.ED 01:22 → UNDOADMIN 03:40 → CC.MS 03:40
PROVIDERS: ADMIT Physician Assistant Medical; ATTEND Family Medicine
DX: R50.9 Fever, unspecified (principal); R41.0 Disorientation, unspecified; R53.1 Weakness; Z91.048 Other nonmedicinal substance allergy status; R13.10 Dysphagia, unspecified; H54.7 Unspecified visual loss; H40.9 Unspecified glaucoma; I25.10 Atherosclerotic heart disease of native coronary artery without angina pectoris; E78.00 Pure hypercholesterolemia, unspecified; I10 Essential (primary) hypertension; J44.9 Chronic obstructive pulmonary disease, unspecified; R35.0 Frequency of micturition; K21.9 Gastro-esophageal reflux disease without esophagitis; G89.29 Other chronic pain; M54.9 Dorsalgia, unspecified; Z96.659 Presence of unspecified artificial knee joint; F32.9 Major depressive disorder, single episode, unspecified; E11.9 Type 2 diabetes mellitus without complications; Z85.3 Personal history of malignant neoplasm of breast; Z86.14 Personal history of Methicillin resistant Staphylococcus aureus infection; Z90.49 Acquired absence of other specified parts of digestive tract; Z79.82 Long term (current) use of aspirin; Z79.899 Other long term (current) drug therapy; Z86.73 Personal history of transient ischemic attack (TIA), and cerebral infarction without residual deficits; Z88.8 Allergy status to other drugs, medicaments and biological substances; Z20.822 Contact with and (suspected) exposure to COVID-19
CPT/HCPCS: 36415; 70450; 71045; 71260; 80048; 80053; 81001; 82607; 83605; 85025; 86140; 87040; 94640; 96374; 96375; 99285-25; A9270-GY; C9113; J0696; J1650; J2405; J3490; J7030; Q9967; U0002

== ENCOUNTER 2020-12-15 15:02 | Inpatient (IN) | payer MEDICARE, MEDICAID ==
[2020-12-15 16:05] LABS: CHLORIDE,CL 109 mEq/L (98-106); SODIUM,NA 144 mEq/L (136-145)
--- NOTE | 2020-12-15 16:43 | EDM.PDOC ---
ED HPI GENERAL MEDICAL PROBLEM - General Chief Complaint: Abdominal Pain Stated Complaint: abdominal pain Time Seen by Provider: 12/15/20 15:20 Source of Information: Reports: Patient History Limitations: Reports: No Limitations - History of Present Illness INITIAL COMMENTS - FREE TEXT/NARRATIVE: Vanita is an 89 year old female who presents to the ED via [facility] with complaints of abdominal pain and bloody stools. She states she initially noticed blood back around Easter but since yesterday has gotten a lot worse. She does complain of shortness of breath as well but is very anxious at times. Denies any chest pain. She states the abdominal pain is sharp at times but does come and go. More so when she needs to have a bowel movement. She had just thought it was hemorrhoids initially but thinks it is to much blood for that. Blood sugar en route to ED was 139. Bilateral Lower Abdomen Pain Score (Numeric/FACES): 8 - Related Data Allergies Allergy/AdvReac Type Severity Reaction Status Date / Time aresols Allergy Difficulty Uncoded 12/15/20 15:41 Breathing Home Meds: Home Meds Acetaminophen [Tylenol Extra Strength] 500 mg PO Q8H PRN 06/15/16 [History] Aspirin 81 mg PO DAILY 12/03/16 [History] Budesonide/Formoterol [Symbicort 160-4.5 MCG] 2 inh INH BID 10/02/20 [History] lisinopriL [Lisinopril] 10 mg PO DAILY 10/02/20 [History] Clopidogrel [Plavix] 75 mg PO DAILY 12/15/20 [History] Lutein/Min/Vit C/Vit E Acetate [Ocuvite Lutein] 1 cap PO DAILY 12/15/20 [History] Melatonin 10 mg PO ASDIRECTED PRN 12/15/20 [History] Multivit-Min/Iron/Folic Acid/K [One Daily Women's Multivitamin] 1 tab PO DAILY 12/15/20 [History] Multivitamin/Iron/Folic Acid [Centrum Complete Multivit] 1 tab PO DAILY 12/15/20 [History] Sertraline [Zoloft] 50 mg PO DAILY 12/15/20 [History] Past Medical History HEENT History: Reports: Allergic Rhinitis, Glaucoma, Impaired Vision Other HEENT History: wears glasses Cardiovascular History: Reports: CAD, High Cholesterol, Hypertension Respiratory History: Reports: Asthma, COPD Gastrointestinal History: Reports: GERD Genitourinary History: Reports: Other (See Below) Other Genitourinary History: frequency due to weak bladder Musculoskeletal History: Reports: Back Pain, Chronic Neurological History: Reports: CVA, Headaches, Chronic Psychiatric History: Reports: Anxiety, Depression Endocrine/Metabolic History: Reports: Diabetes, Type II Hematologic History: Reports: Blood Transfusion(s) Immunologic History: Reports: None Oncologic (Cancer) History: Reports: Breast Dermatologic History: Reports: None - Infectious Disease History Infectious Disease History: Reports: MRSA, Other (See Below) Other Infectious Disease History: Cleared MRSA x3 - Past Surgical History Head Surgeries/Procedures: Reports: None HEENT Surgical History: Reports: Adenoidectomy, Tonsillectomy GI Surgical History: Reports: Appendectomy, Cholecystectomy Female Surgical History: Reports: Hysterectomy, Mastectomy Musculoskeletal Surgical History: Reports: Knee Replacement Social & Family History - Tobacco Use Tobacco Use Status *Q: Never Tobacco User - Caffeine Use Caffeine Use: Reports: Tea - Recreational Drug Use Recreational Drug Use: No - Living Situation & Occupation Living situation: Reports: , Other (living in a house in [place] currently with up to 15 people living in it.) ED ROS GENERAL - Review of Systems Review Of Systems: See Below Constitutional: Reports: Weakness, Fatigue. Denies: Fever, Chills, Decreased Appetite HEENT: Reports: No Symptoms Respiratory: Reports: Shortness of Breath. Denies: Wheezing Cardiovascular: Denies: Chest Pain, Edema, Palpitations GI/Abdominal: Reports: Abdominal Pain, Bloody Stool, Hematochezia. Denies: Hematemesis, Nausea, Vomiting : Reports: Hematuria Musculoskeletal: Reports: No Symptoms Skin: Reports: No Symptoms ED EXAM, GI/ABD - Physical Exam Exam: See Below Exam Limited By: No Limitations General Appearance: Alert, Anxious, Thin. No: Lethargic, Obtunded, Active Emesis Ears: Normal External Exam, Hearing Grossly Normal Nose: Normal Inspection, No Blood Throat/Mouth: Normal Voice, No Airway Compromise, Other (tardive dyskinesia of tongue, lips. ). No: Normal Teeth Head: Atraumatic, Normocephalic Neck: Normal Inspection, Supple Respiratory/Chest: No Respiratory Distress, Lungs Clear, Normal Breath Sounds, No Accessory Muscle Use Cardiovascular: Regular Rate, Rhythm, No Edema, No Murmur GI/Abdominal Exam: Normal Bowel Sounds, Soft, No Distention, Tender (mild diffuse) Rectal (Female) Exam: Normal Rectal Tone, Bloody Stool, Heme + Stool. No: Hemorrhoids, Tenderness Extremities: Normal Inspection, No Pedal Edema Neurological: Alert, Oriented, Normal Cognition Psychiatric: Normal Affect, Normal Mood Skin Exam: Warm, Dry, Intact, Normal Color, No Rash #1 Interpretation EKG Date: 12/15/20 Time: 15:30 Rhythm: NSR Rate (Beats/Min): 59 Comparison: NA - No Prior EKG Course - Vital Signs Last Recorded V/S: Last Vital Signs Temp 97.9 F 12/15/20 15:39 Pulse 72 12/15/20 16:23 Resp 21 H 12/15/20 16:23 BP 137/62 12/15/20 16:23 Pulse Ox 100 12/15/20 16:25 - Orders/Labs/Meds Orders: Active Orders 24 hr Category Date Time Status IRON PNL (FE, TIBC, MIQUEL, %SAT) [REF] Stat Lab 12/15/20 15:41 Received OCCULT BLOOD SCREEN [OP] Stat Lab 12/15/20 15:28 Ordered Labs: Laboratory Tests 12/15/20 12/15/20 12/15/20 Range/Units 15:25 15:41 15:41 WBC 7.2 (5.0-10.0) 10^3/uL RBC 3.63 L (4.00-5.50) 10^6/uL Hgb 11.4 L (12.0-16.0) g/dL Hct 35.1 L (37.0-47.0) % MCV 96.7 H (82.0-94.0) fL MCH 31.4 (27.0-32.0) pg MCHC 32.5 L (33.0-38.0) g/dL RDW Coeff of Sylvie 13.8 (11.0-15.0) % Plt Count 200 (150-400) 10^3/uL Neut % (Auto) 68.4 (35-85) % Lymph % (Auto) 21.3 (10-55) % [place] % (Auto) 8.2 (0-16) % Eos % (Auto) 1.8 (0-5) % Baso % (Auto) 0.3 (0-3) % Neut # (Auto) 4.92 (1.80-7.00) 10^3/uL Lymph # (Auto) 1.53 (1.00-4.80) 10^3/uL [place] # (Auto) 0.59 (0.00-0.80) 10^3/uL Eos # (Auto) 0.13 (0.00-0.45) 10^3/uL Baso # (Auto) 0.02 10^3/uL Sodium 144 (136-145) mEq/L Potassium 4.1 (3.5-5.0) mEq/L Chloride 109 H (98-106) mEq/L Carbon Dioxide 26 (21-32) mmol/L BUN 20 H D (7-18) mg/dL Creatinine 0.6 (0.6-1.0) mg/dL Est Cr Clr Drug Dosing TNP Estimated GFR (MDRD) > 60 (>=60) mL/min Glucose 119 H (75-99) mg/dL Lactic Acid (0.4-2.0) mmol/L Calcium 8.8 (8.4-10.1) mg/dL Total Bilirubin 0.3 (0.0-1.0) mg/dL AST 10 L (15-37) U/L ALT 12 (12-78) U/L Alkaline Phosphatase 74 (46-116) U/L Creatine Kinase 22 (21-215) U/L Troponin I < 0.017 (0.00-0.06) ng/mL Total Protein 5.9 L (6.4-8.2) g/dL Albumin 2.8 L (3.4-5.0) g/dL Amylase 32 (25-115) U/L Lipase 37 L (73-393) U/L Urine Color Yellow (YELLOW) Urine Appearance Clear (CLEAR) Urine pH 5.5 (4.5-8.0) Ur Specific [place] 1.025 H (1.003-1.020) Urine Protein 30 H (NEGATIVE) mg/dL Urine Glucose (UA) Negative (NEGATIVE) mg/dL Urine Ketones 15 H (NEGATIVE) mg/dL Urine Occult Blood Large H (NEGATIVE) Urine Nitrite Negative (NEGATIVE) Urine Bilirubin Negative (NEGATIVE) Urine Urobilinogen 0.2 (0.2-1.0) EU/dL Ur Leukocyte Esterase Negative (NEGATIVE) Urine RBC 5-10 H (0-5) /HPF Urine WBC Not seen (0-5) /HPF Ur Epithelial Cells Moderate H (NOT SEEN) /HPF Calcium Oxalate Crystal Few H (NOT SEEN) /HPF Urine Mucus Few H (NOT SEEN) /HPF 12/15/20 Range/Units 15:41 WBC (5.0-10.0) 10^3/uL RBC (4.00-5.50) 10^6/uL Hgb (12.0-16.0) g/dL Hct (37.0-47.0) % MCV (82.0-94.0) fL MCH (27.0-32.0) pg MCHC (33.0-38.0) g/dL RDW Coeff of Sylvie (11.0-15.0) % Plt Count (150-400) 10^3/uL Neut % (Auto) (35-85) % Lymph % (Auto) (10-55) % [place] % (Auto) (0-16) % Eos % (Auto) (0-5) % Baso % (Auto) (0-3) % Neut # (Auto) (1.80-7.00) 10^3/uL Lymph # (Auto) (1.00-4.80) 10^3/uL [place] # (Auto) (0.00-0.80) 10^3/uL Eos # (Auto) (0.00-0.45) 10^3/uL Baso # (Auto) 10^3/uL Sodium (136-145) mEq/L Potassium (3.5-5.0) mEq/L Chloride (98-106) mEq/L Carbon Dioxide (21-32) mmol/L BUN (7-18) mg/dL Creatinine (0.6-1.0) mg/dL Est Cr Clr Drug Dosing Estimated GFR (MDRD) (>=60) mL/min Glucose (75-99) mg/dL Lactic Acid 1.3 (0.4-2.0) mmol/L Calcium (8.4-10.1) mg/dL Total Bilirubin (0.0-1.0) mg/dL AST (15-37) U/L ALT (12-78) U/L Alkaline Phosphatase (46-116) U/L Creatine Kinase (21-215) U/L Troponin I (0.00-0.06) ng/mL Total Protein (6.4-8.2) g/dL Albumin (3.4-5.0) g/dL Amylase (25-115) U/L Lipase (73-393) U/L Urine Color (YELLOW) Urine Appearance (CLEAR) Urine pH (4.5-8.0) Ur Specific [place] (1.003-1.020) Urine Protein (NEGATIVE) mg/dL Urine Glucose (UA) (NEGATIVE) mg/dL Urine Ketones (NEGATIVE) mg/dL Urine Occult Blood (NEGATIVE) Urine Nitrite (NEGATIVE) Urine Bilirubin (NEGATIVE) Urine Urobilinogen (0.2-1.0) EU/dL Ur Leukocyte Esterase (NEGATIVE) Urine RBC (0-5) /HPF Urine WBC (0-5) /HPF Ur Epithelial Cells (NOT SEEN) /HPF Calcium Oxalate Crystal (NOT SEEN) /HPF Urine Mucus (NOT SEEN) /HPF Departure - Departure Time of Disposition: 16:49 Disposition: Admitted As Inpatient 68 Clinical Impression: GI bleeding Qualifiers: GI bleed type/associated pathology: diverticulosis Qualified Code(s): K57.91 - Diverticulosis of intestine, part unspecified, without perforation or abscess with bleeding - Discharge Information *PRESCRIPTION DRUG MONITORING PROGRAM REVIEWED*: No *COPY OF PRESCRIPTION DRUG MONITORING REPORT IN PATIENT JUSTINA: No Referrals: Kehinde Nesbitt MD [Primary Care Provider] - Sepsis Event Note (ED) - Evaluation Sepsis Screening Result: No Definite Risk - Focused Exam Vital Signs: Vital Signs Temp Pulse Resp BP Pulse Ox 12/15/20 16:25 100 12/15/20 16:23 72 21 H 137/62 98 12/15/20 15:39 97.9 F 62 24 H 157/78 H 78 L 12/15/20 15:30 100 - Problem List & Annotations (1) GI bleeding SNOMED Code(s): 30755874 Code(s): K92.2 - GASTROINTESTINAL HEMORRHAGE, UNSPECIFIED Status: Acute Current Visit: Yes Qualifiers: GI bleed type/associated pathology: diverticulosis Qualified Code(s): K57.91 - Diverticulosis of intestine, part unspecified, without perforation or abscess with bleeding - My Orders Last 24 Hours: My Active Orders 12/15/20 15:28 OCCULT BLOOD SCREEN [OP] Stat 12/15/20 15:41 IRON PNL (FE, TIBC, MIQUEL, %SAT) [REF] Stat - Assessment/Plan Admission H&P: Please use this note as an admission H&P Last 24 Hours: My Active Orders 12/15/20 15:28 OCCULT BLOOD SCREEN [OP] Stat 12/15/20 15:41 IRON PNL (FE, TIBC, MIQUEL, %SAT) [REF] Stat Plan: Patient's laboratory work is overall unremarkable. Hgb is slightly low at 11.4. Rectal exam did confirm occult blood positive. Will admit to Dr. Nesbitt's services under acute care. Consulted with Dr. Nesbitt and he is in agreement. Will keep NPO tonight. Start IV protonix and normal saline at 75ml's/hr. Dr. Nesbitt will consult to discuss diagnostic colonoscopy. Will closely follow Hgb and patient to be placed on telemetry. Patient declined transfer to higher level of care. Discussed Code level status and patient declines life saving measures and elects to be a DNR/DNI.
[2020-12-15] MEDS ORDERED: Ondansetron 4 MG/2 ML SDV IVPUSH PRN (17:05)
[2020-12-15] MEDS ORDERED: Acetaminophen 500 MG Tab PO PRN (17:05)
[2020-12-15] MEDS ORDERED: Acetaminophen 325 MG Tab PO PRN (17:05)
[2020-12-15] MEDS: Sodium Chloride 0.9% 1,000 ML IV SCH (18:14)
[2020-12-15] MEDS: Formoterol/Mometasone 200-5 MCG 8.8 GM Inhaler IH SCH (19:43)
[2020-12-15] MEDS: Pantoprazole 40 MG Vial IVPUSH SCH (19:46)
[2020-12-16] MEDS: Sodium Chloride 0.9% 1,000 ML IV SCH ×2 (02:04→09:17)
[2020-12-16 07:23] LABS: CHLORIDE,CL 113 mEq/L (98-106); SODIUM,NA 147 mEq/L (136-145)
[2020-12-16] MEDS: Formoterol/Mometasone 200-5 MCG 8.8 GM Inhaler IH SCH ×2 (09:04→19:49)
[2020-12-16] MEDS: Sertraline 25 MG Tab PO SCH (09:04)
[2020-12-16] MEDS: Lisinopril 10 MG Tab PO SCH (09:05)
[2020-12-16] MEDS: Multivitamin Tab PO SCH (09:05)
--- NOTE | 2020-12-16 10:42 | PCM.PN ---
- General Info Date of Service: 12/16/20 Subjective Update: Vanita is in good spirits this morning. She states she is feeling a lot better than yesterday. Admits she would like to eat or drink something today. She has no new onset of symptoms. States she did have 3 episodes of bloody stools in the night but none this morning. Functional Status: Reports: Pain Controlled, Ambulating (with assistance), Urinating. Denies: New Symptoms - Review of Systems General: Reports: Weakness. Denies: Fever HEENT: Reports: No Symptoms Pulmonary: Denies: Shortness of Breath, Cough, Wheezing Cardiovascular: Reports: Lightheadedness. Denies: Chest Pain, Palpitations Gastrointestinal: Denies: Abdominal Pain, Hematochezia (none this morning), Nausea, Vomiting Genitourinary: Reports: No Symptoms Skin: Reports: No Symptoms Neurological: Reports: No Symptoms Psychiatric: Reports: No Symptoms - Patient Data Vitals - Most Recent: Last Vital Signs Temp 98 F 12/16/20 08:00 Pulse 63 12/16/20 08:00 Resp 20 12/16/20 08:00 BP 130/43 L 12/16/20 09:05 Pulse Ox 98 12/16/20 08:00 Weight - Most Recent: 113 lb I&O - Last 24 Hours: Intake & Output 12/15/20 12/16/20 12/16/20 22:59 06:59 14:59 Intake Total 979 902 Balance 979 902 Lab Results Last 24 Hours: Laboratory Results - last 24 hr 12/15/20 12/15/20 12/15/20 Range/Units 15:25 15:41 15:41 WBC 7.2 (5.0-10.0) 10^3/uL RBC 3.63 L (4.00-5.50) 10^6/uL Hgb 11.4 L (12.0-16.0) g/dL Hct 35.1 L (37.0-47.0) % MCV 96.7 H (82.0-94.0) fL MCH 31.4 (27.0-32.0) pg MCHC 32.5 L (33.0-38.0) g/dL RDW Coeff of Sylvie 13.8 (11.0-15.0) % Plt Count 200 (150-400) 10^3/uL Neut % (Auto) 68.4 (35-85) % Lymph % (Auto) 21.3 (10-55) % [place] % (Auto) 8.2 (0-16) % Eos % (Auto) 1.8 (0-5) % Baso % (Auto) 0.3 (0-3) % Neut # (Auto) 4.92 (1.80-7.00) 10^3/uL Lymph # (Auto) 1.53 (1.00-4.80) 10^3/uL [place] # (Auto) 0.59 (0.00-0.80) 10^3/uL Eos # (Auto) 0.13 (0.00-0.45) 10^3/uL Baso # (Auto) 0.02 10^3/uL Sodium 144 (136-145) mEq/L Potassium 4.1 (3.5-5.0) mEq/L Chloride 109 H (98-106) mEq/L Carbon Dioxide 26 (21-32) mmol/L BUN 20 H D (7-18) mg/dL Creatinine 0.6 (0.6-1.0) mg/dL Est Cr Clr Drug Dosing TNP Estimated GFR (MDRD) > 60 (>=60) mL/min Glucose 119 H (75-99) mg/dL Lactic Acid (0.4-2.0) mmol/L Calcium 8.8 (8.4-10.1) mg/dL Total Bilirubin 0.3 (0.0-1.0) mg/dL AST 10 L (15-37) U/L ALT 12 (12-78) U/L Alkaline Phosphatase 74 (46-116) U/L Creatine Kinase 22 (21-215) U/L Troponin I < 0.017 (0.00-0.06) ng/mL C-Reactive Protein (0.2-0.8) mg/dL Total Protein 5.9 L (6.4-8.2) g/dL Albumin 2.8 L (3.4-5.0) g/dL Amylase 32 (25-115) U/L Lipase 37 L (73-393) U/L Urine Color Yellow (YELLOW) Urine Appearance Clear (CLEAR) Urine pH 5.5 (4.5-8.0) Ur Specific [place] 1.025 H (1.003-1.020) Urine Protein 30 H (NEGATIVE) mg/dL Urine Glucose (UA) Negative (NEGATIVE) mg/dL Urine Ketones 15 H (NEGATIVE) mg/dL Urine Occult Blood Large H (NEGATIVE) Urine Nitrite Negative (NEGATIVE) Urine Bilirubin Negative (NEGATIVE) Urine Urobilinogen 0.2 (0.2-1.0) EU/dL Ur Leukocyte Esterase Negative (NEGATIVE) Urine RBC 5-10 H (0-5) /HPF Urine WBC Not seen (0-5) /HPF Ur Epithelial Cells Moderate H (NOT SEEN) /HPF Calcium Oxalate Crystal Few H (NOT SEEN) /HPF Urine Mucus Few H (NOT SEEN) /HPF Blood Type Gel Antibody Screen Crossmatch 12/15/20 12/16/20 12/16/20 Range/Units 15:41 07:00 07:00 WBC 6.1 (5.0-10.0) 10^3/uL RBC 2.66 L (4.00-5.50) 10^6/uL Hgb 8.4 L (12.0-16.0) g/dL Hct 26.4 L (37.0-47.0) % MCV 99.2 H (82.0-94.0) fL MCH 31.6 (27.0-32.0) pg MCHC 31.8 L (33.0-38.0) g/dL RDW Coeff of Sylvie 13.7 (11.0-15.0) % Plt Count 177 (150-400) 10^3/uL Neut % (Auto) 66.6 (35-85) % Lymph % (Auto) 25.7 (10-55) % [place] % (Auto) 5.1 (0-16) % Eos % (Auto) 2.3 (0-5) % Baso % (Auto) 0.3 (0-3) % Neut # (Auto) 4.08 (1.80-7.00) 10^3/uL Lymph # (Auto) 1.57 (1.00-4.80) 10^3/uL [place] # (Auto) 0.31 (0.00-0.80) 10^3/uL Eos # (Auto) 0.14 (0.00-0.45) 10^3/uL Baso # (Auto) 0.02 10^3/uL Sodium 147 H (136-145) mEq/L Potassium 4.4 (3.5-5.0) mEq/L Chloride 113 H (98-106) mEq/L Carbon Dioxide 26 (21-32) mmol/L BUN 15 (7-18) mg/dL Creatinine 0.5 L (0.6-1.0) mg/dL Est Cr Clr Drug Dosing 58.69 Estimated GFR (MDRD) > 60 (>=60) mL/min Glucose 101 H (75-99) mg/dL Lactic Acid 1.3 (0.4-2.0) mmol/L Calcium 7.6 L (8.4-10.1) mg/dL Total Bilirubin (0.0-1.0) mg/dL AST (15-37) U/L ALT (12-78) U/L Alkaline Phosphatase (46-116) U/L Creatine Kinase (21-215) U/L Troponin I (0.00-0.06) ng/mL C-Reactive Protein 0.2 (0.2-0.8) mg/dL Total Protein (6.4-8.2) g/dL Albumin (3.4-5.0) g/dL Amylase (25-115) U/L Lipase (73-393) U/L Urine Color (YELLOW) Urine Appearance (CLEAR) Urine pH (4.5-8.0) Ur Specific [place] (1.003-1.020) Urine Protein (NEGATIVE) mg/dL Urine Glucose (UA) (NEGATIVE) mg/dL Urine Ketones (NEGATIVE) mg/dL Urine Occult Blood (NEGATIVE) Urine Nitrite (NEGATIVE) Urine Bilirubin (NEGATIVE) Urine Urobilinogen (0.2-1.0) EU/dL Ur Leukocyte Esterase (NEGATIVE) Urine RBC (0-5) /HPF Urine WBC (0-5) /HPF Ur Epithelial Cells (NOT SEEN) /HPF Calcium Oxalate Crystal (NOT SEEN) /HPF Urine Mucus (NOT SEEN) /HPF Blood Type Gel Antibody Screen Crossmatch 12/16/20 Range/Units 08:29 WBC (5.0-10.0) 10^3/uL RBC (4.00-5.50) 10^6/uL Hgb (12.0-16.0) g/dL Hct (37.0-47.0) % MCV (82.0-94.0) fL MCH (27.0-32.0) pg MCHC (33.0-38.0) g/dL RDW Coeff of Sylvie (11.0-15.0) % Plt Count (150-400) 10^3/uL Neut % (Auto) (35-85) % Lymph % (Auto) (10-55) % [place] % (Auto) (0-16) % Eos % (Auto) (0-5) % Baso % (Auto) (0-3) % Neut # (Auto) (1.80-7.00) 10^3/uL Lymph # (Auto) (1.00-4.80) 10^3/uL [place] # (Auto) (0.00-0.80) 10^3/uL Eos # (Auto) (0.00-0.45) 10^3/uL Baso # (Auto) 10^3/uL Sodium (136-145) mEq/L Potassium (3.5-5.0) mEq/L Chloride (98-106) mEq/L Carbon Dioxide (21-32) mmol/L BUN (7-18) mg/dL Creatinine (0.6-1.0) mg/dL Est Cr Clr Drug Dosing Estimated GFR (MDRD) (>=60) mL/min Glucose (75-99) mg/dL Lactic Acid (0.4-2.0) mmol/L Calcium (8.4-10.1) mg/dL Total Bilirubin (0.0-1.0) mg/dL AST (15-37) U/L ALT (12-78) U/L Alkaline Phosphatase (46-116) U/L Creatine Kinase (21-215) U/L Troponin I (0.00-0.06) ng/mL C-Reactive Protein (0.2-0.8) mg/dL Total Protein (6.4-8.2) g/dL Albumin (3.4-5.0) g/dL Amylase (25-115) U/L Lipase (73-393) U/L Urine Color (YELLOW) Urine Appearance (CLEAR) Urine pH (4.5-8.0) Ur Specific [place] (1.003-1.020) Urine Protein (NEGATIVE) mg/dL Urine Glucose (UA) (NEGATIVE) mg/dL Urine Ketones (NEGATIVE) mg/dL Urine Occult Blood (NEGATIVE) Urine Nitrite (NEGATIVE) Urine Bilirubin (NEGATIVE) Urine Urobilinogen (0.2-1.0) EU/dL Ur Leukocyte Esterase (NEGATIVE) Urine RBC (0-5) /HPF Urine WBC (0-5) /HPF Ur Epithelial Cells (NOT SEEN) /HPF Calcium Oxalate Crystal (NOT SEEN) /HPF Urine Mucus (NOT SEEN) /HPF Blood Type O POSITIVE Gel Antibody Screen Negative Crossmatch See Detail Med Orders - Current: Current Medications Acetaminophen (Acetaminophen 325 Mg Tab) 650 mg PO Q4H PRN PRN Reason: Pain (Mild 1-3)/fever Ferrous Sulfate (Ferrous Sulfate 324 Mg Tab.Ec) 324 mg PO B[facility]MEALS [facility] Sodium Chloride (Normal Saline) 1,000 mls @ 125 mls/hr IV ASDIRECTED [facility] Last Admin: 12/16/20 09:17 Dose: 125 mls/hr Documented by: Lisinopril (Lisinopril 10 Mg Tab) 10 mg PO DAILY [facility] Last Admin: 12/16/20 09:05 Dose: 10 mg Documented by: Mometasone Furoate/Formoterol Fumar (Formoterol/Mometasone 200-5 Mcg 8.8 Gm Inhaler) 2 puff IH BID [facility] Last Admin: 12/16/20 09:04 Dose: 2 puff Documented by: Multivitamins/Minerals/Vitamin C (Multivitamin Tab) 1 tab PO DAILY [facility] Last Admin: 12/16/20 09:05 Dose: 1 tab Documented by: Ondansetron HCl (Ondansetron 4 Mg/2 Ml Sdv) 4 mg IVPUSH Q4H PRN PRN Reason: Nausea/Vomiting Pantoprazole Sodium (Pantoprazole 40 Mg Vial) 40 mg IVPUSH BEDTIME [facility] Last Admin: 12/15/20 19:46 Dose: 40 mg Documented by: Sertraline HCl (Sertraline 25 Mg Tab) 50 mg PO DAILY [facility] Last Admin: 12/16/20 09:04 Dose: 50 mg Documented by: Discontinued Medications Acetaminophen (Acetaminophen 500 Mg Tab) 500 mg PO Q8H PRN PRN Reason: Pain - Exam General: Alert, Oriented, Cooperative, No Acute Distress Neck: Supple Lungs: Clear to Auscultation, Normal Respiratory Effort Cardiovascular: Regular Rate, Regular Rhythm, No Murmurs GI/Abdominal Exam: Normal Bowel Sounds, Soft, Non-Tender, No Organomegaly, No Distention Extremities: Normal Inspection, Pedal Edema (trace) Skin: Warm, Dry, Intact Psy/Mental Status: Alert, Normal Affect, Normal Mood - Patient Data Lab Results Last 24 hrs: Laboratory Results - last 24 hr 12/15/20 12/15/20 12/15/20 Range/Units 15:25 15:41 15:41 WBC 7.2 (5.0-10.0) 10^3/uL RBC 3.63 L (4.00-5.50) 10^6/uL Hgb 11.4 L (12.0-16.0) g/dL Hct 35.1 L (37.0-47.0) % MCV 96.7 H (82.0-94.0) fL MCH 31.4 (27.0-32.0) pg MCHC 32.5 L (33.0-38.0) g/dL RDW Coeff of Sylvie 13.8 (11.0-15.0) % Plt Count 200 (150-400) 10^3/uL Neut % (Auto) 68.4 (35-85) % Lymph % (Auto) 21.3 (10-55) % [place] % (Auto) 8.2 (0-16) % Eos % (Auto) 1.8 (0-5) % Baso % (Auto) 0.3 (0-3) % Neut # (Auto) 4.92 (1.80-7.00) 10^3/uL Lymph # (Auto) 1.53 (1.00-4.80) 10^3/uL [place] # (Auto) 0.59 (0.00-0.80) 10^3/uL Eos # (Auto) 0.13 (0.00-0.45) 10^3/uL Baso # (Auto) 0.02 10^3/uL Sodium 144 (136-145) mEq/L Potassium 4.1 (3.5-5.0) mEq/L Chloride 109 H (98-106) mEq/L Carbon Dioxide 26 (21-32) mmol/L BUN 20 H D (7-18) mg/dL Creatinine 0.6 (0.6-1.0) mg/dL Est Cr Clr Drug Dosing TNP Estimated GFR (MDRD) > 60 (>=60) mL/min Glucose 119 H (75-99) mg/dL Lactic Acid (0.4-2.0) mmol/L Calcium 8.8 (8.4-10.1) mg/dL Total Bilirubin 0.3 (0.0-1.0) mg/dL AST 10 L (15-37) U/L ALT 12 (12-78) U/L Alkaline Phosphatase 74 (46-116) U/L Creatine Kinase 22 (21-215) U/L Troponin I < 0.017 (0.00-0.06) ng/mL C-Reactive Protein (0.2-0.8) mg/dL Total Protein 5.9 L (6.4-8.2) g/dL Albumin 2.8 L (3.4-5.0) g/dL Amylase 32 (25-115) U/L Lipase 37 L (73-393) U/L Urine Color Yellow (YELLOW) Urine Appearance Clear (CLEAR) Urine pH 5.5 (4.5-8.0) Ur Specific [place] 1.025 H (1.003-1.020) Urine Protein 30 H (NEGATIVE) mg/dL Urine Glucose (UA) Negative (NEGATIVE) mg/dL Urine Ketones 15 H (NEGATIVE) mg/dL Urine Occult Blood Large H (NEGATIVE) Urine Nitrite Negative (NEGATIVE) Urine Bilirubin Negative (NEGATIVE) Urine Urobilinogen 0.2 (0.2-1.0) EU/dL Ur Leukocyte Esterase Negative (NEGATIVE) Urine RBC 5-10 H (0-5) /HPF Urine WBC Not seen (0-5) /HPF Ur Epithelial Cells Moderate H (NOT SEEN) /HPF Calcium Oxalate Crystal Few H (NOT SEEN) /HPF Urine Mucus Few H (NOT SEEN) /HPF Blood Type Gel Antibody Screen Crossmatch 12/15/20 12/16/20 12/16/20 Range/Units 15:41 07:00 07:00 WBC 6.1 (5.0-10.0) 10^3/uL RBC 2.66 L (4.00-5.50) 10^6/uL Hgb 8.4 L (12.0-16.0) g/dL Hct 26.4 L (37.0-47.0) % MCV 99.2 H (82.0-94.0) fL MCH 31.6 (27.0-32.0) pg MCHC 31.8 L (33.0-38.0) g/dL RDW Coeff of Sylvie 13.7 (11.0-15.0) % Plt Count 177 (150-400) 10^3/uL Neut % (Auto) 66.6 (35-85) % Lymph % (Auto) 25.7 (10-55) % [place] % (Auto) 5.1 (0-16) % Eos % (Auto) 2.3 (0-5) % Baso % (Auto) 0.3 (0-3) % Neut # (Auto) 4.08 (1.80-7.00) 10^3/uL Lymph # (Auto) 1.57 (1.00-4.80) 10^3/uL [place] # (Auto) 0.31 (0.00-0.80) 10^3/uL Eos # (Auto) 0.14 (0.00-0.45) 10^3/uL Baso # (Auto) 0.02 10^3/uL Sodium 147 H (136-145) mEq/L Potassium 4.4 (3.5-5.0) mEq/L Chloride 113 H (98-106) mEq/L Carbon Dioxide 26 (21-32) mmol/L BUN 15 (7-18) mg/dL Creatinine 0.5 L (0.6-1.0) mg/dL Est Cr Clr Drug Dosing 58.69 Estimated GFR (MDRD) > 60 (>=60) mL/min Glucose 101 H (75-99) mg/dL Lactic Acid 1.3 (0.4-2.0) mmol/L Calcium 7.6 L (8.4-10.1) mg/dL Total Bilirubin (0.0-1.0) mg/dL AST (15-37) U/L ALT (12-78) U/L Alkaline Phosphatase (46-116) U/L Creatine Kinase (21-215) U/L Troponin I (0.00-0.06) ng/mL C-Reactive Protein 0.2 (0.2-0.8) mg/dL Total Protein (6.4-8.2) g/dL Albumin (3.4-5.0) g/dL Amylase (25-115) U/L Lipase (73-393) U/L Urine Color (YELLOW) Urine Appearance (CLEAR) Urine pH (4.5-8.0) Ur Specific [place] (1.003-1.020) Urine Protein (NEGATIVE) mg/dL Urine Glucose (UA) (NEGATIVE) mg/dL Urine Ketones (NEGATIVE) mg/dL Urine Occult Blood (NEGATIVE) Urine Nitrite (NEGATIVE) Urine Bilirubin (NEGATIVE) Urine Urobilinogen (0.2-1.0) EU/dL Ur Leukocyte Esterase (NEGATIVE) Urine RBC (0-5) /HPF Urine WBC (0-5) /HPF Ur Epithelial Cells (NOT SEEN) /HPF Calcium Oxalate Crystal (NOT SEEN) /HPF Urine Mucus (NOT SEEN) /HPF Blood Type Gel Antibody Screen Crossmatch 12/16/20 Range/Units 08:29 WBC (5.0-10.0) 10^3/uL RBC (4.00-5.50) 10^6/uL Hgb (12.0-16.0) g/dL Hct (37.0-47.0) % MCV (82.0-94.0) fL MCH (27.0-32.0) pg MCHC (33.0-38.0) g/dL RDW Coeff of Sylvie (11.0-15.0) % Plt Count (150-400) 10^3/uL Neut % (Auto) (35-85) % Lymph % (Auto) (10-55) % [place] % (Auto) (0-16) % Eos % (Auto) (0-5) % Baso % (Auto) (0-3) % Neut # (Auto) (1.80-7.00) 10^3/uL Lymph # (Auto) (1.00-4.80) 10^3/uL [place] # (Auto) (0.00-0.80) 10^3/uL Eos # (Auto) (0.00-0.45) 10^3/uL Baso # (Auto) 10^3/uL Sodium (136-145) mEq/L Potassium (3.5-5.0) mEq/L Chloride (98-106) mEq/L Carbon Dioxide (21-32) mmol/L BUN (7-18) mg/dL Creatinine (0.6-1.0) mg/dL Est Cr Clr Drug Dosing Estimated GFR (MDRD) (>=60) mL/min Glucose (75-99) mg/dL Lactic Acid (0.4-2.0) mmol/L Calcium (8.4-10.1) mg/dL Total Bilirubin (0.0-1.0) mg/dL AST (15-37) U/L ALT (12-78) U/L Alkaline Phosphatase (46-116) U/L Creatine Kinase (21-215) U/L Troponin I (0.00-0.06) ng/mL C-Reactive Protein (0.2-0.8) mg/dL Total Protein (6.4-8.2) g/dL Albumin (3.4-5.0) g/dL Amylase (25-115) U/L Lipase (73-393) U/L Urine Color (YELLOW) Urine Appearance (CLEAR) Urine pH (4.5-8.0) Ur Specific [place] (1.003-1.020) Urine Protein (NEGATIVE) mg/dL Urine Glucose (UA) (NEGATIVE) mg/dL Urine Ketones (NEGATIVE) mg/dL Urine Occult Blood (NEGATIVE) Urine Nitrite (NEGATIVE) Urine Bilirubin (NEGATIVE) Urine Urobilinogen (0.2-1.0) EU/dL Ur Leukocyte Esterase (NEGATIVE) Urine RBC (0-5) /HPF Urine WBC (0-5) /HPF Ur Epithelial Cells (NOT SEEN) /HPF Calcium Oxalate Crystal (NOT SEEN) /HPF Urine Mucus (NOT SEEN) /HPF Blood Type O POSITIVE Gel Antibody Screen Negative Crossmatch See Detail Result Diagrams: 12/16/20 07:00 12/16/20 07:00 Sepsis Event Note - Evaluation Sepsis Screening Result: No Definite Risk - Focused Exam Vital Signs: Vital Signs Temp Pulse Resp BP BP Pulse Ox 12/16/20 09:05 130/43 L 12/16/20 08:00 98 F 63 20 130/43 L 98 12/16/20 04:00 97.5 F 70 16 117/46 L 98 12/16/20 00:00 98.3 F 70 16 138/54 L 95 - Problem List & Annotations (1) GI bleeding SNOMED Code(s): 90298181 Code(s): K92.2 - GASTROINTESTINAL HEMORRHAGE, UNSPECIFIED Status: Acute Current Visit: Yes Qualifiers: GI bleed type/associated pathology: diverticulosis Qualified Code(s): K57.91 - Diverticulosis of intestine, part unspecified, without perforation or abscess with bleeding - Problem List Review Problem List Initiated/Reviewed/Updated: Yes - My Orders Last 24 Hours: My Active Orders 12/15/20 15:28 OCCULT BLOOD SCREEN [OP] Stat 12/15/20 15:41 IRON PNL (FE, TIBC, MIQUEL, %SAT) [REF] Stat 12/15/20 16:55 Resuscitation Status Routine 12/15/20 17:05 Acetaminophen [TylenoL] 650 mg PO Q4H PRN Ondansetron [Zofran] 4 mg IVPUSH Q4H PRN 12/15/20 17:05 Patient Status [ADT] Routine Antiembolic Devices [RC] 1000,2200 Cardiac Monitoring [RC] 0800,2000 Notify Provider Consults [RC] .PRN Oxygen Therapy [RC] 2355 Pulse Oximetry [RC] .PRN Up With Assistance [RC] .PRN Vital Signs [RC] 0000,0400,0800,1200,1600,2000 Consult to Physician [CONS] Routine Anticoagulation Contraindications VTE [AST] Per Unit Routine Antiembolic Hose [OM.PC] Per Unit Routine 12/15/20 Dinner Nothing per Oral Now Diet [DIET] Sodium Chloride 0.9% [Normal Saline] 1,000 ml IV ASDIRECTED 12/15/20 20:00 Mometasone/Formoterol [Dulera 200-5 MCG] 2 puff IH BID Pantoprazole [ProTONIX IV] 40 mg IVPUSH BEDTIME 12/16/20 08:00 Multivitamins [Tab-A-Emily] 1 tab PO DAILY Sertraline [Zoloft] 50 mg PO DAILY lisinopriL [Prinivil] 10 mg PO DAILY 12/16/20 08:29 RED BLOOD CELLS LP [BBK] Routine 12/16/20 14:00 HGB [HEMOGLOBIN] [HEME] Routine 12/16/20 17:30 Ferrous Sulfate 324 mg PO BIDMEALS - Plan Plan:: Hgb has significantly dropped to 8.4 today from 11.4 yesterday. She did have 3 episodes of blood stools through the night. None this morning. Will type and cross and hold 2 units. Repeat Hgb this afternoon. Will consult with Dr. Nesbitt in regards to patient's current diet, prep for colonoscopy, etc... Patient is set up for EGD/colonoscopy in the am. I discussed blood products with Vanita today and she voice understanding and in agreement to accepting if needed.
[2020-12-16] MEDS: Calcium Carbonate 500 MG Tab.Chew PO SCH ×2 (15:27→19:49)
[2020-12-16] MEDS: Lactated Ringers 1,000 ML IV SCH ×2 (15:27→19:54)
[2020-12-16] MEDS ORDERED: Ferrous Sulfate 324 MG Tab.EC PO SCH (17:30)
[2020-12-16] MEDS ORDERED: Polyethylene Glycol 3350 Powder 238 GM Bot PO ONE (18:00)
[2020-12-16] MEDS: Pantoprazole 40 MG Vial IVPUSH SCH (19:49)
[2020-12-16] MEDS ORDERED: Bisacodyl 5 MG Tab PO ONE (20:00)
[2020-12-17 07:23] LABS: CHLORIDE,CL 109 mEq/L (98-106); SODIUM,NA 145 mEq/L (136-145)
[2020-12-17] MEDS ORDERED: Magnesium Sulfate/Water 2 GM/50 ML BAG IV ONE ×2 (09:30→11:30)
[2020-12-17] MEDS: Lisinopril 10 MG Tab PO SCH (10:52)
[2020-12-17] MEDS ORDERED: Potassium Chloride 20 MEQ in Premix Bag 1 BAG IV ONE ×2 (11:30→13:30)
[2020-12-17] MEDS: Formoterol/Mometasone 200-5 MCG 8.8 GM Inhaler IH SCH ×2 (11:33→19:48)
[2020-12-17] MEDS: Sertraline 25 MG Tab PO SCH ×2 (11:34→15:14)
[2020-12-17] MEDS: Calcium Carbonate 500 MG Tab.Chew PO SCH ×3 (11:34→19:44)
[2020-12-17] MEDS: Multivitamin Tab PO SCH (11:34)
--- NOTE | 2020-12-17 12:31 | PCM.PN ---
- General Info Date of Service: 12/17/20 Subjective Update: Vanita is in good spirits this morning. She states she is feeling a lot better than yesterday. Admits she would like to eat or drink something today. She has no new onset of symptoms. States she did have 3 episodes of bloody stools in the night but none this morning. 12/17/2020 Vanita did have a few episodes of bloody stools since yesterday. She does admit to feeling a lot better. State she does have an appetite and would like to eat a full meal. She denies any pain today. No fevers through out the night. Has been getting up by herself at times. Functional Status: Reports: Pain Controlled, Ambulating, Urinating. Denies: New Symptoms - Review of Systems General: Reports: No Symptoms HEENT: Reports: No Symptoms Pulmonary: Reports: No Symptoms Cardiovascular: Reports: No Symptoms Gastrointestinal: Reports: Hematochezia. Denies: Abdominal Pain, Constipation, Diarrhea, Nausea, Vomiting Genitourinary: Reports: No Symptoms Musculoskeletal: Reports: No Symptoms Neurological: Reports: No Symptoms Psychiatric: Reports: No Symptoms - Patient Data Vitals - Most Recent: Last Vital Signs Temp 96.9 F 12/17/20 11:26 Pulse 80 12/17/20 11:26 Resp 18 12/17/20 11:26 BP 172/78 H 12/17/20 11:38 Pulse Ox 93 L 12/17/20 11:26 Weight - Most Recent: 113 lb I&O - Last 24 Hours: Intake & Output 12/16/20 12/17/20 12/17/20 22:59 06:59 14:59 Intake Total 556 Balance 556 Lab Results Last 24 Hours: Laboratory Results - last 24 hr 12/15/20 12/16/20 12/17/20 Range/Units 15:41 14:06 05:11 WBC 10.7 H (5.0-10.0) 10^3/uL RBC 2.53 L (4.00-5.50) 10^6/uL Hgb 8.4 L 7.8 L* (12.0-16.0) g/dL Hct 24.8 L (37.0-47.0) % MCV 98.0 H (82.0-94.0) fL MCH 30.8 (27.0-32.0) pg MCHC 31.5 L (33.0-38.0) g/dL RDW Coeff of Sylvie 13.7 (11.0-15.0) % Plt Count 178 (150-400) 10^3/uL Neut % (Auto) 77.4 (35-85) % Lymph % (Auto) 16.0 (10-55) % Ashley % (Auto) 5.7 (0-16) % Eos % (Auto) 0.7 (0-5) % Baso % (Auto) 0.2 (0-3) % Neut # (Auto) 8.26 H (1.80-7.00) 10^3/uL Lymph # (Auto) 1.71 (1.00-4.80) 10^3/uL Ashley # (Auto) 0.61 (0.00-0.80) 10^3/uL Eos # (Auto) 0.08 (0.00-0.45) 10^3/uL Baso # (Auto) 0.02 10^3/uL Sodium (136-145) mEq/L Potassium (3.5-5.0) mEq/L Chloride (98-106) mEq/L Carbon Dioxide (21-32) mmol/L BUN (7-18) mg/dL Creatinine (0.6-1.0) mg/dL Est Cr Clr Drug Dosing mL/min Estimated GFR (MDRD) (>=60) mL/min Glucose (75-99) mg/dL Calcium (8.4-10.1) mg/dL Magnesium (1.8-2.4) mg/dL Iron 49 (35-145) ug/dL TIBC 201 L (261-478) ug/dL Unsaturated IBC 152 L (155-355) ug/dL Transferrin % Sat 24.4 (20.0-50.0) % Ferritin 137 (11-307) ng/mL 12/17/20 Range/Units 05:11 WBC (5.0-10.0) 10^3/uL RBC (4.00-5.50) 10^6/uL Hgb (12.0-16.0) g/dL Hct (37.0-47.0) % MCV (82.0-94.0) fL MCH (27.0-32.0) pg MCHC (33.0-38.0) g/dL RDW Coeff of Sylvie (11.0-15.0) % Plt Count (150-400) 10^3/uL Neut % (Auto) (35-85) % Lymph % (Auto) (10-55) % Ashley % (Auto) (0-16) % Eos % (Auto) (0-5) % Baso % (Auto) (0-3) % Neut # (Auto) (1.80-7.00) 10^3/uL Lymph # (Auto) (1.00-4.80) 10^3/uL Ashley # (Auto) (0.00-0.80) 10^3/uL Eos # (Auto) (0.00-0.45) 10^3/uL Baso # (Auto) 10^3/uL Sodium 145 (136-145) mEq/L Potassium 3.3 L D (3.5-5.0) mEq/L Chloride 109 H (98-106) mEq/L Carbon Dioxide 25 (21-32) mmol/L BUN 7 D (7-18) mg/dL Creatinine 0.5 L (0.6-1.0) mg/dL Est Cr Clr Drug Dosing 58.69 mL/min Estimated GFR (MDRD) > 60 (>=60) mL/min Glucose 108 H (75-99) mg/dL Calcium 7.8 L (8.4-10.1) mg/dL Magnesium 1.5 L (1.8-2.4) mg/dL Iron (35-145) ug/dL TIBC (261-478) ug/dL Unsaturated IBC (155-355) ug/dL Transferrin % Sat (20.0-50.0) % Ferritin (11-307) ng/mL Med Orders - Current: Current Medications Acetaminophen (Acetaminophen 325 Mg Tab) 650 mg PO Q4H PRN PRN Reason: Pain (Mild 1-3)/fever Calcium Carbonate/Glycine (Calcium Carbonate 500 Mg Tab.Chew) 500 mg PO TID [facility] Last Admin: 12/17/20 11:34 Dose: Not Given Documented by: Lactated Ringer's (Ringers, Lactated) 1,000 mls @ 125 mls/hr IV ASDIRECTED [facility] Last Admin: 12/16/20 19:54 Dose: 125 mls/hr Documented by: Magnesium Sulfate (Magnesium Sulfate In Water 2 Gm/50 Ml) 2 gm in 50 mls @ 25 mls/hr IV ONETIME ONE Stop: 12/17/20 13:29 Last Admin: 12/17/20 11:11 Dose: 25 mls/hr Documented by: Potassium Chloride 20 meq/ (Premix) 100 mls @ 25 mls/hr IV ONETIME ONE Stop: 12/17/20 17:29 Lisinopril (Lisinopril 10 Mg Tab) 10 mg PO DAILY [facility] Last Admin: 12/17/20 10:52 Dose: 10 mg Documented by: Mometasone Furoate/Formoterol Fumar (Formoterol/Mometasone 200-5 Mcg 8.8 Gm Inhaler) 2 puff IH BID [facility] Last Admin: 12/17/20 11:33 Dose: Not Given Documented by: Multivitamins/Minerals/Vitamin C (Multivitamin Tab) 1 tab PO DAILY [facility] Last Admin: 12/17/20 11:34 Dose: Not Given Documented by: Ondansetron HCl (Ondansetron 4 Mg/2 Ml Sdv) 4 mg IVPUSH Q4H PRN PRN Reason: Nausea/Vomiting Pantoprazole Sodium (Pantoprazole 40 Mg Vial) 40 mg IVPUSH BEDTIME [facility] Last Admin: 12/16/20 19:49 Dose: 40 mg Documented by: Sertraline HCl (Sertraline 25 Mg Tab) 50 mg PO DAILY [facility] Last Admin: 12/17/20 11:34 Dose: Not Given Documented by: Discontinued Medications Acetaminophen (Acetaminophen 500 Mg Tab) 500 mg PO Q8H PRN PRN Reason: Pain Bisacodyl (Bisacodyl 5 Mg Tab) 10 mg PO ONETIME ONE Stop: 12/16/20 20:01 Last Admin: 12/16/20 19:49 Dose: 10 mg Documented by: Ferrous Sulfate (Ferrous Sulfate 324 Mg Tab.Ec) 324 mg PO BIDMEALS [facility] Sodium Chloride (Normal Saline) 1,000 mls @ 125 mls/hr IV ASDIRECTED [facility] Last Admin: 12/16/20 09:17 Dose: 125 mls/hr Documented by: Magnesium Sulfate (Magnesium Sulfate In Water 2 Gm/50 Ml) 2 gm in 50 mls @ 25 mls/hr IV ONETIME ONE Stop: 12/17/20 11:29 Last Admin: 12/17/20 11:49 Dose: Not Given Documented by: Potassium Chloride 20 meq/ (Premix) 100 mls @ 25 mls/hr IV ONETIME ONE Stop: 12/17/20 15:29 Polyethylene Glycol (Polyethylene Glycol 3350 Powder 238 Gm Bot) 238 gm PO ONETIME ONE Stop: 12/16/20 18:01 Last Admin: 12/16/20 18:17 Dose: 238 gm Documented by: - Exam General: Alert, Oriented, Cooperative, No Acute Distress Neck: Supple Lungs: Clear to Auscultation, Normal Respiratory Effort Cardiovascular: Regular Rate, Regular Rhythm GI/Abdominal Exam: Normal Bowel Sounds, Soft, Non-Tender, No Distention Extremities: Normal Inspection, No Pedal Edema Peripheral Pulses: 1+: Dorsalis Pedis (L), Dorsalis Pedis (R) Skin: Warm, Dry, Intact Neurological: No New Focal Deficit Psy/Mental Status: Alert, Normal Affect, Normal Mood - Patient Data Lab Results Last 24 hrs: Laboratory Results - last 24 hr 12/15/20 12/16/20 12/17/20 Range/Units 15:41 14:06 05:11 WBC 10.7 H (5.0-10.0) 10^3/uL RBC 2.53 L (4.00-5.50) 10^6/uL Hgb 8.4 L 7.8 L* (12.0-16.0) g/dL Hct 24.8 L (37.0-47.0) % MCV 98.0 H (82.0-94.0) fL MCH 30.8 (27.0-32.0) pg MCHC 31.5 L (33.0-38.0) g/dL RDW Coeff of Sylvie 13.7 (11.0-15.0) % Plt Count 178 (150-400) 10^3/uL Neut % (Auto) 77.4 (35-85) % Lymph % (Auto) 16.0 (10-55) % Ashley % (Auto) 5.7 (0-16) % Eos % (Auto) 0.7 (0-5) % Baso % (Auto) 0.2 (0-3) % Neut # (Auto) 8.26 H (1.80-7.00) 10^3/uL Lymph # (Auto) 1.71 (1.00-4.80) 10^3/uL Ashley # (Auto) 0.61 (0.00-0.80) 10^3/uL Eos # (Auto) 0.08 (0.00-0.45) 10^3/uL Baso # (Auto) 0.02 10^3/uL Sodium (136-145) mEq/L Potassium (3.5-5.0) mEq/L Chloride (98-106) mEq/L Carbon Dioxide (21-32) mmol/L BUN (7-18) mg/dL Creatinine (0.6-1.0) mg/dL Est Cr Clr Drug Dosing mL/min Estimated GFR (MDRD) (>=60) mL/min Glucose (75-99) mg/dL Calcium (8.4-10.1) mg/dL Magnesium (1.8-2.4) mg/dL Iron 49 (35-145) ug/dL TIBC 201 L (261-478) ug/dL Unsaturated IBC 152 L (155-355) ug/dL Transferrin % Sat 24.4 (20.0-50.0) % Ferritin 137 (11-307) ng/mL 12/17/20 Range/Units 05:11 WBC (5.0-10.0) 10^3/uL RBC (4.00-5.50) 10^6/uL Hgb (12.0-16.0) g/dL Hct (37.0-47.0) % MCV (82.0-94.0) fL MCH (27.0-32.0) pg MCHC (33.0-38.0) g/dL RDW Coeff of Sylvie (11.0-15.0) % Plt Count (150-400) 10^3/uL Neut % (Auto) (35-85) % Lymph % (Auto) (10-55) % Ashley % (Auto) (0-16) % Eos % (Auto) (0-5) % Baso % (Auto) (0-3) % Neut # (Auto) (1.80-7.00) 10^3/uL Lymph # (Auto) (1.00-4.80) 10^3/uL Ashley # (Auto) (0.00-0.80) 10^3/uL Eos # (Auto) (0.00-0.45) 10^3/uL Baso # (Auto) 10^3/uL Sodium 145 (136-145) mEq/L Potassium 3.3 L D (3.5-5.0) mEq/L Chloride 109 H (98-106) mEq/L Carbon Dioxide 25 (21-32) mmol/L BUN 7 D (7-18) mg/dL Creatinine 0.5 L (0.6-1.0) mg/dL Est Cr Clr Drug Dosing 58.69 mL/min Estimated GFR (MDRD) > 60 (>=60) mL/min Glucose 108 H (75-99) mg/dL Calcium 7.8 L (8.4-10.1) mg/dL Magnesium 1.5 L (1.8-2.4) mg/dL Iron (35-145) ug/dL TIBC (261-478) ug/dL Unsaturated IBC (155-355) ug/dL Transferrin % Sat (20.0-50.0) % Ferritin (11-307) ng/mL Result Diagrams: 12/17/20 05:11 12/17/20 05:11 Sepsis Event Note - Evaluation Sepsis Screening Result: No Definite Risk - Focused Exam Vital Signs: Vital Signs Temp Pulse Resp BP BP Pulse Ox 12/17/20 11:38 172/78 H 12/17/20 11:26 96.9 F 80 18 93 L 12/17/20 10:52 159/50 H 12/17/20 08:00 98.2 F 73 24 H 159/50 H 96 12/17/20 04:00 98 F 72 18 128/48 L 95 - Problem List & Annotations (1) GI bleeding SNOMED Code(s): 74215753 Code(s): K92.2 - GASTROINTESTINAL HEMORRHAGE, UNSPECIFIED Status: Acute Current Visit: Yes Qualifiers: GI bleed type/associated pathology: diverticulosis Qualified Code(s): K57.91 - Diverticulosis of intestine, part unspecified, without perforation or abscess with bleeding - Problem List Review Problem List Initiated/Reviewed/Updated: Yes - My Orders Last 24 Hours: My Active Orders 12/16/20 14:30 Calcium Carbonate [Tums] 500 mg PO TID Lactated Ringers [Ringers, Lactated] 1,000 ml IV ASDIRECTED 12/16/20 Dinner Clear Liquid Diet [DIET] 12/17/20 11:30 Magnesium Sulfate/Water [Magnesium Sulfate in Water 2 GM/50 ML] 2 gm in 50 ml IV ONETIME 12/17/20 13:30 Potassium Chloride [KCL in Water 20 MEQ/100 ML] 20 meq Premix Bag 1 bag IV ONETIME 12/18/20 05:11 BMP [BASIC METABOLIC PANEL,BMP] [CHEM] AM CBC WITH AUTO DIFF [HEME] AM - Plan Plan:: Hgb has significantly dropped to 8.4 today from 11.4 yesterday. She did have 3 episodes of blood stools through the night. None this morning. Will type and cross and hold 2 units. Repeat Hgb this afternoon. Will consult with Dr. Nesbitt in regards to patient's current diet, prep for colonoscopy, etc... Patient is set up for EGD/colonoscopy in the am. I discussed blood products with Vanita today and she voice understanding and in agreement to accepting if needed. Patient's Hgb did drop to 7.[address] Nesbitt which we will wait on blood transfusion. Will repeat Hgb in am. Patient is to have EGD and colonoscopy today at 1300hrs. Will continue NPO until after procedure. Patient verbalized understanding. Otherwise, laboratory work did show slightly low Potassium of 3.3 and Magnesium of 1.5. Will give IV KCl and Magnesium today.
[2020-12-17] MEDS ORDERED: Meperidine PF 25 MG/ML SDV ONE (12:57)
[2020-12-17] MEDS ORDERED: Midazolam 1 MG/ML 2 ML SDV ONE ×2 (12:57→13:05)
[2020-12-17] MEDS ORDERED: Benzocaine 20% Oral Spray 59.2 ML Canister MUCMEM ONE (13:04)
[2020-12-17] MEDS ORDERED: Meperidine PF 25 MG/ML SDV IV ONE (13:08)
[2020-12-17] MEDS ORDERED: Midazolam 1 MG/ML 2 ML SDV IV ONE ×2 (13:09→13:12)
[2020-12-17] MEDS: Lactated Ringers 1,000 ML IV SCH (13:25)
[2020-12-17] MEDS ORDERED: Sodium Chloride 0.9% 250 ML IV SCH (14:00)
[2020-12-17] MEDS ORDERED: cloNIDine 0.1 MG Tab PO ONE (16:00)
[2020-12-17] MEDS: Pantoprazole 40 MG Vial IVPUSH SCH (19:47)
[2020-12-18 07:24] LABS: CHLORIDE,CL 113 mEq/L (98-106); SODIUM,NA 147 mEq/L (136-145)
[2020-12-18] MEDS: Sertraline 25 MG Tab PO SCH (08:12)
[2020-12-18] MEDS: Calcium Carbonate 500 MG Tab.Chew PO SCH (08:12)
[2020-12-18] MEDS: Lisinopril 10 MG Tab PO SCH (08:13)
[2020-12-18] MEDS: Pantoprazole 40 MG Vial IVPUSH SCH (08:14)
[2020-12-18] MEDS: Multivitamin Tab PO SCH (08:14)
[2020-12-18 08:15] VITALS: BP 148/46
[2020-12-18] MEDS: Formoterol/Mometasone 200-5 MCG 8.8 GM Inhaler IH SCH (08:15)
[2020-12-18 08:50] VITALS: PULSE 57
[2020-12-18] MEDS ORDERED: Potassium Chloride 10 MEQ Tab.ER PO SCH (17:30)
--- NOTE | 2020-12-19 01:04 | PCM.DCSUM1 ---
Discharge Summary - Hospital Course HPI Initial Comments: Vanita is an 89 yo female who was admitted to on the 15 of December with bloody stools. Patient had been having bloody stools for a awhile and had progressively worsened before admit. Diagnosis: Stroke: No - Discharge Data Discharge Date: 12/18/20 Discharge Disposition: DC/Tfer W/I Hosp To Swing 61 Condition: Good - Referral to Home Health Primary Care Physician: Kehinde Nesbitt MD - Discharge Diagnosis/Problem(s) (1) GI bleeding SNOMED Code(s): 06082614 ICD Code: K92.2 - GASTROINTESTINAL HEMORRHAGE, UNSPECIFIED Status: Acute Qualifiers: GI bleed type/associated pathology: gastric ulcer Qualified Code(s): K25.4 - Chronic or unspecified gastric ulcer with hemorrhage (2) Hypokalemia SNOMED Code(s): 94341293 ICD Code: E87.6 - HYPOKALEMIA Status: Acute - Patient Summary/Data Consults: Consultations 12/15/20 17:05 Consult to Physician [CONS] Routine - Discharge Plan *PRESCRIPTION DRUG MONITORING PROGRAM REVIEWED*: No *COPY OF PRESCRIPTION DRUG MONITORING REPORT IN PATIENT JUSTINA: No Home Medications: Home Meds Acetaminophen [Tylenol Extra Strength] 500 mg PO Q8H PRN 06/15/16 [History] Aspirin 81 mg PO DAILY 12/03/16 [History] Budesonide/Formoterol [Symbicort 160-4.5 MCG] 2 inh INH BID 10/02/20 [History] lisinopriL [Lisinopril] 10 mg PO DAILY 10/02/20 [History] Clopidogrel [Plavix] 75 mg PO DAILY 12/15/20 [History] Lutein/Min/Vit C/Vit E Acetate [Ocuvite Lutein] 1 cap PO DAILY 12/15/20 [History] Melatonin 10 mg PO ASDIRECTED PRN 12/15/20 [History] Multivit-Min/Iron/Folic Acid/K [One Daily Women's Multivitamin] 1 tab PO DAILY 12/15/20 [History] Multivitamin/Iron/Folic Acid [Centrum Complete Multivit] 1 tab PO DAILY 12/15/20 [History] Sertraline [Zoloft] 50 mg PO DAILY 12/15/20 [History] Oxygen Therapy Mode: Room Air Forms: ED Department Discharge Referrals: Kehinde Nesbitt MD [Primary Care Provider] - - Discharge Summary/Plan Comment DC Time >30 min.: Yes Discharge Summary/Plan Comment: Patient will be discharged from acute care and admitted to swing bed status today. Will closely monitor Hgb daily. No complications with pRBC transfusion. PT to continue work with patient. Hgb 9.7 today significantly improved from 7.8 yesterday. Potassium continues to be slightly low, will give IV Potassium today. Repeat BMP in am. Please use discharge summary for Swing Bed H&P. - General Info Admission Dx/Problem (Free Text: GI Bleed Subjective Update: Vanita is in good spirits this morning. She states she is feeling a lot better than yesterday. Admits she would like to eat or drink something today. She has no new onset of symptoms. States she did have 3 episodes of bloody stools in the night but none this morning. 12/17/2020 Vanita did have a few episodes of bloody stools since yesterday. She does admit to feeling a lot better. State she does have an appetite and would like to eat a full meal. She denies any pain today. No fevers through out the night. Has been getting up by herself at times. 12/18/2020 Vanita states she is feeling better today. Denies any bloody stools since yesterday. Has been eating well. Denies any abdominal pain. No lightheadedness. Has been ambulating. Patient did receive blood transfusion yesterday after having EGD/colonoscopy with 4 bleeding GI ulcers. Functional Status: Reports: Pain Controlled, Tolerating Diet, Ambulating - Review of Systems General: Reports: Appetite. Denies: Fever, Chills HEENT: Reports: No Symptoms Pulmonary: Reports: No Symptoms Cardiovascular: Reports: No Symptoms Gastrointestinal: Denies: Abdominal Pain, Decreased Appetite, Diarrhea, Melena, Nausea, Vomiting Genitourinary: Reports: No Symptoms Musculoskeletal: Reports: No Symptoms Skin: Reports: No Symptoms Neurological: Reports: No Symptoms - Patient Data Vitals - Most Recent: Last Vital Signs Temp 97.9 F 12/18/20 08:00 Pulse 57 L 12/18/20 08:00 Resp 16 12/18/20 08:00 BP 148/46 H 12/18/20 08:13 Pulse Ox 96 12/18/20 08:00 Weight - Most Recent: 113 lb Lab Results - Last 24 hrs: Laboratory Results - last 24 hr 12/18/20 12/18/20 12/18/20 Range/Units 07:15 07:15 09:18 WBC 5.7 (5.0-10.0) 10^3/uL RBC 3.18 L (4.00-5.50) 10^6/uL Hgb 9.7 L (12.0-16.0) g/dL Hct 30.3 L (37.0-47.0) % MCV 95.3 H (82.0-94.0) fL MCH 30.5 (27.0-32.0) pg MCHC 32.0 L (33.0-38.0) g/dL RDW Coeff of Sylvie 14.9 (11.0-15.0) % Plt Count 153 (150-400) 10^3/uL Neut % (Auto) 63.5 (35-85) % Lymph % (Auto) 21.9 (10-55) % Mitchell % (Auto) 9.5 (0-16) % Eos % (Auto) 4.7 (0-5) % Baso % (Auto) 0.4 (0-3) % Neut # (Auto) 3.63 (1.80-7.00) 10^3/uL Lymph # (Auto) 1.25 (1.00-4.80) 10^3/uL Mitchell # (Auto) 0.54 (0.00-0.80) 10^3/uL Eos # (Auto) 0.27 (0.00-0.45) 10^3/uL Baso # (Auto) 0.02 10^3/uL Sodium 147 H (136-145) mEq/L Potassium 3.2 L (3.5-5.0) mEq/L Chloride 113 H (98-106) mEq/L Carbon Dioxide 27 (21-32) mmol/L BUN 5 L (7-18) mg/dL Creatinine 0.6 (0.6-1.0) mg/dL Est Cr Clr Drug Dosing 48.91 mL/min Estimated GFR (MDRD) > 60 (>=60) mL/min Glucose 89 (75-99) mg/dL Calcium 7.7 L (8.4-10.1) mg/dL Magnesium 1.8 (1.8-2.4) mg/dL CHRIS Results - Last 24 hrs: Microbiology 12/17/20 13:38 CLOtest - Final Stomach NEGATIVE CLOTEST REFERENCE RANGE: NEGATIVE Med Orders - Current: Current Medications Discontinued Medications Acetaminophen (Acetaminophen 325 Mg Tab) 650 mg PO Q4H PRN PRN Reason: Pain (Mild 1-3)/fever Acetaminophen (Acetaminophen 500 Mg Tab) 500 mg PO Q8H PRN PRN Reason: Pain Benzocaine (Benzocaine 20% Oral Rawlings 59.2 Ml Canister) 0.5 ml MUCMEM .STK-MED ONE Stop: 12/17/20 13:05 Last Admin: 12/17/20 13:04 Dose: 0.5 ml Documented by: Bisacodyl (Bisacodyl 5 Mg Tab) 10 mg PO ONETIME ONE Stop: 12/16/20 20:01 Last Admin: 12/16/20 19:49 Dose: 10 mg Documented by: Calcium Carbonate/Glycine (Calcium Carbonate 500 Mg Tab.Chew) 500 mg PO TID [facility] Last Admin: 12/18/20 08:12 Dose: 500 mg Documented by: Clonidine HCl (Clonidine 0.1 Mg Tab) 0.1 mg PO ONETIME ONE Stop: 12/17/20 16:01 Last Admin: 12/17/20 15:54 Dose: 0.1 mg Documented by: Ferrous Sulfate (Ferrous Sulfate 324 Mg Tab.Ec) 324 mg PO BIDMEALS [facility] Sodium Chloride (Normal Saline) 1,000 mls @ 125 mls/hr IV ASDIRECTED [facility] Last Admin: 12/16/20 09:17 Dose: 125 mls/hr Documented by: Lactated Ringer's (Ringers, Lactated) 1,000 mls @ 125 mls/hr IV ASDIRECTED [facility] Last Admin: 12/17/20 13:25 Dose: 125 mls/hr Documented by: Magnesium Sulfate (Magnesium Sulfate In Water 2 Gm/50 Ml) 2 gm in 50 mls @ 25 mls/hr IV ONETIME ONE Stop: 12/17/20 11:29 Last Admin: 12/17/20 11:49 Dose: Not Given Documented by: Potassium Chloride 20 meq/ (Premix) 100 mls @ 25 mls/hr IV ONETIME ONE Stop: 12/17/20 15:29 Magnesium Sulfate (Magnesium Sulfate In Water 2 Gm/50 Ml) 2 gm in 50 mls @ 25 mls/hr IV ONETIME ONE Stop: 12/17/20 13:29 Last Admin: 12/17/20 11:11 Dose: 25 mls/hr Documented by: Potassium Chloride 20 meq/ (Premix) 100 mls @ 25 mls/hr IV ONETIME ONE Stop: 12/17/20 17:29 Last Admin: 12/17/20 14:07 Dose: 25 mls/hr Documented by: Sodium Chloride (Normal Saline) 250 mls @ 50 mls/hr IV ASDIRECTED [facility] Last Admin: 12/17/20 14:11 Dose: 50 mls/hr Documented by: Lisinopril (Lisinopril 10 Mg Tab) 10 mg PO DAILY [facility] Last Admin: 12/18/20 08:13 Dose: 10 mg Documented by: Meperidine HCl (Meperidine Pf 25 Mg/Ml Sdv) Confirm Administered Dose 50 mg .ROUTE .STK-MED ONE Stop: 12/17/20 12:58 Last Admin: 12/17/20 13:50 Dose: Not Given Documented by: Meperidine HCl (Meperidine Pf 25 Mg/Ml Sdv) 25 mg IV .STK-MED ONE Stop: 12/17/20 13:09 Last Admin: 12/17/20 13:08 Dose: 25 mg Documented by: Midazolam HCl (Midazolam 1 Mg/Ml 2 Ml Sdv) Confirm Administered Dose 4 mg .ROUTE .STK-MED ONE Stop: 12/17/20 12:58 Last Admin: 12/17/20 13:50 Dose: Not Given Documented by: Midazolam HCl (Midazolam 1 Mg/Ml 2 Ml Sdv) 2 mg IV .STK-MED ONE Stop: 12/17/20 13:10 Last Admin: 12/17/20 13:09 Dose: 2 mg Documented by: Midazolam HCl (Midazolam 1 Mg/Ml 2 Ml Sdv) 2 mg IV .STK-MED ONE Stop: 12/17/20 13:13 Last Admin: 12/17/20 13:12 Dose: 2 mg Documented by: Midazolam HCl (Midazolam 1 Mg/Ml 2 Ml Sdv) Confirm Administered Dose 2 mg .ROUTE .STK-MED ONE Stop: 12/17/20 13:06 Last Admin: 12/17/20 13:50 Dose: Not Given Documented by: Mometasone Furoate/Formoterol Fumar (Formoterol/Mometasone 200-5 Mcg 8.8 Gm Inhaler) 2 puff IH BID [facility] Last Admin: 12/18/20 08:15 Dose: 2 puff Documented by: Multivitamins/Minerals/Vitamin C (Multivitamin Tab) 1 tab PO DAILY [facility] Last Admin: 12/18/20 08:14 Dose: 1 tab Documented by: Ondansetron HCl (Ondansetron 4 Mg/2 Ml Sdv) 4 mg IVPUSH Q4H PRN PRN Reason: Nausea/Vomiting Pantoprazole Sodium (Pantoprazole 40 Mg Vial) 40 mg IVPUSH BEDTIME [facility] Last Admin: 12/16/20 19:49 Dose: 40 mg Documented by: Pantoprazole Sodium (Pantoprazole 40 Mg Vial) 40 mg IVPUSH BID [facility] Last Admin: 12/18/20 08:14 Dose: 40 mg Documented by: Polyethylene Glycol (Polyethylene Glycol 3350 Powder 238 Gm Bot) 238 gm PO ONETIME ONE Stop: 12/16/20 18:01 Last Admin: 12/16/20 18:17 Dose: 238 gm Documented by: Potassium Chloride (Potassium Chloride 10 Meq Tab.Er) 20 meq PO BIDMEALS [facility] Sertraline HCl (Sertraline 25 Mg Tab) 50 mg PO DAILY [facility] Last Admin: 12/18/20 08:12 Dose: 50 mg Documented by: - Exam General: Reports: Alert, Oriented, Cooperative, No Acute Distress Lungs: Reports: Clear to Auscultation, Normal Respiratory Effort Cardiovascular: Reports: Regular Rate, Regular Rhythm GI/Abdominal Exam: Normal Bowel Sounds, Soft, Non-Tender, No Organomegaly, No Distention Skin: Reports: Warm, Dry, Intact Psy/Mental Status: Reports: Alert, Normal Affect, Normal Mood *Q Meaningful Use (DIS) - VTE *Q VTE Anticoagulation Contraindications: Medical/Procedure Contrai
--- NOTE | 2020-12-21 07:24 | OR ---
DATE OF OPERATION: 12/17/2020 PREOPERATIVE DIAGNOSIS: GASTROINTESTINAL BLEED. POSTOPERATIVE DIAGNOSIS: GASTROINTESTINAL BLEED. SURGEON: Kehinde Nesbitt MD PROCEDURE: 1. DIAGNOSTIC ESOPHAGOGASTRODUODENOSCOPY WITH LONA. 2. FULL-LENGTH COLONOSCOPY. ANESTHESIA: Conscious sedation with continuous O2 saturation monitoring, nurse assist. COMPLICATIONS: None. SPECIMEN: Antral LONA. FINDINGS: 1. Full-length EGD. 2. Multiple small gastric ulcers with adherent clot. 3. Full-length colonoscopy. 4. 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 RECOMMENDATIONS: Continue with ongoing medical care. INDICATIONS: The patient presented with a GI bleed and has dropped her hemoglobins. We have been managing her medically. Diagnostic scope, as this patient appears to now be stable, was entertained. DESCRIPTION OF PROCEDURE: The patient was prepped and draped and placed in the left lateral decubitus position. A lubricated Olympus gastroscope was inserted over a bit, advanced to the cricopharyngeus, and easily intubated into the esophagus. The esophageal lining was benign in its entire course. The Z-line was crisp, around 39 cm. The scope was advanced into the stomach, where the patient had multiple small little erosions, probably 4, that were adherent blood or trickling of blood coming from them. There were no masses, polyps, or signs of significant gastritis. We were able to advance easily through the pylorus and into the second portion of the duodenum, and this and the duodenal bulb were benign. The scope was brought back into the stomach and retroflexed. The upper fundus and cardia were grossly benign. The proximal portion of the fundus had 2 small little erosions with adherent clot, and there was a larger one in the early body of the antrum with adherent clot. None of these were biopsied due to that. Air was then suctioned, and the scope was removed without complication. A lubricated Olympus colonoscope was then inserted and easily advanced to the cecum. Direct visualization of the ileocecal valve and the appendiceal orifice was accomplished. The bowel prep was excellent. Upon withdrawal of the scope, the patient had severe balderas-diverticular disease, worse in the sigmoid as expected, but no obvious inflammatory changes throughout the entire length of the colon. I could find no polyps, masses, ulceration, or bleeding sites. There were no obvious vascular abnormalities or signs of colitis. The rectal vault was benign. Retroflexion could not be accomplished because of the volume of stool at the bottom of the rectum. Air was suctioned and the scope removed without complication. VIBHA/CHASE /[id number]
== END 2020-12-18 09:20 | disposition swing bed (61) | DRG 379 ==
LOC: CC.ED 15:02 → SUPCPDRO 15:02 → UNDOADMIN 16:39 → CC.MS 16:39
PROVIDERS: ADMIT Physician Assistant Medical; ATTEND Family Medicine
PROC: 0DJ08ZZ Inspection of Upper Intestinal Tract, Via Natural or Artificial Opening Endoscopic (ICD-10-PCS; principal; 2020-12-15)
PROC: 0DJD8ZZ Inspection of Lower Intestinal Tract, Via Natural or Artificial Opening Endoscopic (ICD-10-PCS; 2020-12-15)
PROC: 30233N1 Transfusion of Nonautologous Red Blood Cells into Peripheral Vein, Percutaneous Approach (ICD-10-PCS; 2020-12-17)
DX: K25.4 Chronic or unspecified gastric ulcer with hemorrhage (principal); E87.6 Hypokalemia; Z66 Do not resuscitate; K57.91 Diverticulosis of intestine, part unspecified, without perforation or abscess with bleeding; J45.909 Unspecified asthma, uncomplicated; H54.7 Unspecified visual loss; H40.9 Unspecified glaucoma; I25.10 Atherosclerotic heart disease of native coronary artery without angina pectoris; I10 Essential (primary) hypertension; E78.00 Pure hypercholesterolemia, unspecified; J44.9 Chronic obstructive pulmonary disease, unspecified; K21.9 Gastro-esophageal reflux disease without esophagitis; G89.29 Other chronic pain; M54.9 Dorsalgia, unspecified; F32.9 Major depressive disorder, single episode, unspecified; F41.9 Anxiety disorder, unspecified; E11.9 Type 2 diabetes mellitus without complications; Z86.73 Personal history of transient ischemic attack (TIA), and cerebral infarction without residual deficits; Z85.3 Personal history of malignant neoplasm of breast; Z91.048 Other nonmedicinal substance allergy status; Z86.14 Personal history of Methicillin resistant Staphylococcus aureus infection; Z90.89 Acquired absence of other organs; Z90.49 Acquired absence of other specified parts of digestive tract; Z90.710 Acquired absence of both cervix and uterus; Z96.649 Presence of unspecified artificial hip joint; Z88.8 Allergy status to other drugs, medicaments and biological substances; Z79.02 Long term (current) use of antithrombotics/antiplatelets; Z79.82 Long term (current) use of aspirin; Z79.51 Long term (current) use of inhaled steroids; Z79.899 Other long term (current) drug therapy
CPT/HCPCS: 36415; 36430; 80048; 80053; 81001; 82150; 82550; 82728; 83540; 83550; 83605; 83690; 83735; 84484; 85018; 85025; 86140; 86850; 86900; 86901; 86920; 86922; 87081; 93005; 99285-25; A9270-GY; C9113; J2175; J2250; J3475; J3480; J7030; J7050; J7120; P9016

== ENCOUNTER 2020-12-18 09:21 | Inpatient (IN) | payer MEDICARE, MEDICAID ==
[2020-12-18] MEDS ORDERED: Potassium Chloride 20 MEQ in Premix Bag 1 BAG IV ONE (09:54)
[2020-12-18] MEDS: Sodium Chloride 0.9% 250 ML IV SCH ×2 (11:30→14:00)
[2020-12-18] MEDS ORDERED: Sodium Chloride 0.9% 250 ML ONE (11:36)
[2020-12-18] MEDS ORDERED: Sodium Chloride 0.9% 250 ML IV SCH (12:15)
[2020-12-18] MEDS: Calcium Carbonate 500 MG Tab.Chew PO SCH ×2 (14:04→19:48)
[2020-12-18] MEDS ORDERED: Oxyquinoline/Emollient 0.3% Oint 1 OZ Canister TOP PRN (15:24)
[2020-12-18] MEDS: Potassium Chloride 10 MEQ Tab.ER PO SCH (17:28)
[2020-12-18] MEDS: Pantoprazole 40 MG Vial IVPUSH SCH (19:45)
[2020-12-18] MEDS: Formoterol/Mometasone 200-5 MCG 8.8 GM Inhaler IH SCH (19:49)
[2020-12-19 07:29] LABS: CHLORIDE,CL 114 mEq/L (98-106); SODIUM,NA 147 mEq/L (136-145)
[2020-12-19] MEDS: Calcium Carbonate 500 MG Tab.Chew PO SCH ×3 (07:36→19:31)
[2020-12-19] MEDS: Potassium Chloride 10 MEQ Tab.ER PO SCH ×2 (07:36→17:08)
[2020-12-19] MEDS: Lisinopril 10 MG Tab PO SCH (07:37)
[2020-12-19] MEDS: Multivitamin Tab PO SCH (07:37)
[2020-12-19] MEDS: Sertraline 25 MG Tab PO SCH (07:37)
[2020-12-19] MEDS: Pantoprazole 40 MG Vial IVPUSH SCH ×2 (07:39→19:30)
[2020-12-19] MEDS: Formoterol/Mometasone 200-5 MCG 8.8 GM Inhaler IH SCH ×2 (07:42→19:32)
--- NOTE | 2020-12-19 11:26 | PCM.PN ---
- General Info Date of Service: 12/19/20 Functional Status: Reports: Pain Controlled, Tolerating Diet, Ambulating, Urinating - Review of Systems General: Reports: No Symptoms HEENT: Reports: No Symptoms Pulmonary: Reports: No Symptoms Cardiovascular: Reports: No Symptoms Gastrointestinal: Reports: No Symptoms Genitourinary: Reports: No Symptoms Musculoskeletal: Reports: No Symptoms Skin: Reports: No Symptoms Neurological: Reports: No Symptoms Psychiatric: Reports: No Symptoms - Patient Data Vitals - Most Recent: Last Vital Signs Temp 97.8 F 12/19/20 08:00 Pulse 75 12/19/20 08:00 Resp 20 12/19/20 08:00 BP 181/76 H 12/19/20 08:00 Pulse Ox 97 12/19/20 08:00 Weight - Most Recent: 113 lb 8 oz Lab Results Last 24 Hours: Laboratory Results - last 24 hr 12/18/20 12/19/20 12/19/20 Range/Units 18:25 07:00 07:00 Hgb 10.4 L 7.9 L* (12.0-16.0) g/dL Sodium 147 H (136-145) mEq/L Potassium 3.8 (3.5-5.0) mEq/L Chloride 114 H (98-106) mEq/L Carbon Dioxide 25 (21-32) mmol/L BUN 7 (7-18) mg/dL Creatinine 0.6 (0.6-1.0) mg/dL Est Cr Clr Drug Dosing 52.67 mL/min Estimated GFR (MDRD) > 60 (>=60) mL/min Glucose 96 (75-99) mg/dL Calcium 7.8 L (8.4-10.1) mg/dL Total Bilirubin 0.3 (0.0-1.0) mg/dL AST 10 L (15-37) U/L ALT 14 (12-78) U/L Alkaline Phosphatase 56 (46-116) U/L Total Protein 4.5 L (6.4-8.2) g/dL Albumin 2.1 L (3.4-5.0) g/dL Drew Results Last 24 Hours: Microbiology 12/18/20 09:54 Occult Blood - Preliminary Stool / Feces Med Orders - Current: Current Medications Acetaminophen (Acetaminophen 325 Mg Tab) 650 mg PO Q4H PRN PRN Reason: Pain (Mild 1-3)/fever Calcium Carbonate/Glycine (Calcium Carbonate 500 Mg Tab.Chew) 500 mg PO TID [facility] Last Admin: 12/19/20 07:36 Dose: 500 mg Documented by: Lisinopril (Lisinopril 10 Mg Tab) 10 mg PO DAILY [facility] Last Admin: 12/19/20 07:37 Dose: 10 mg Documented by: Mometasone Furoate/Formoterol Fumar (Formoterol/Mometasone 200-5 Mcg 8.8 Gm Inhaler) 0 puff IH BID [facility] Last Admin: 12/19/20 07:42 Dose: 2 puff Documented by: Multivitamins/Minerals/Vitamin C (Multivitamin Tab) 1 tab PO DAILY [facility] Last Admin: 12/19/20 07:37 Dose: 1 tab Documented by: Ondansetron HCl (Ondansetron 4 Mg/2 Ml Sdv) 4 mg IVPUSH Q4H PRN PRN Reason: Nausea/Vomiting Oxyquinoline Sulfate (Oxyquinoline/Emollient 0.3% Oint 1 Oz Canister) 0 oz TOP ASDIRECTED PRN PRN Reason: Pain (moderate 4-6) Last Admin: 12/18/20 16:00 Dose: 1 applic Documented by: Pantoprazole Sodium (Pantoprazole 40 Mg Vial) 40 mg IVPUSH BID [facility] Last Admin: 12/19/20 07:39 Dose: 40 mg Documented by: Potassium Chloride (Potassium Chloride 10 Meq Tab.Er) 20 meq PO BIDMEALS [facility] Last Admin: 12/19/20 07:36 Dose: 20 meq Documented by: Sertraline HCl (Sertraline 25 Mg Tab) 50 mg PO DAILY [facility] Last Admin: 12/19/20 07:37 Dose: 50 mg Documented by: Discontinued Medications Potassium Chloride 20 meq/ (Premix) 100 mls @ 25 mls/hr IV ONETIME ONE Stop: 12/18/20 13:53 Last Admin: 12/18/20 11:02 Dose: 25 mls/hr Documented by: Sodium Chloride (Normal Saline (Advbag)) Confirm Administered Dose 250 mls @ as directed .ROUTE .STK-MED ONE Stop: 12/18/20 11:37 Last Admin: 12/18/20 12:14 Dose: Not Given Documented by: Sodium Chloride (Normal Saline) 250 mls @ 100 mls/hr IV ASDIRECTED [facility] Sodium Chloride (Normal Saline) 250 mls @ 125 mls/hr IV Q2H [facility] Stop: 12/18/20 16:44 Last Admin: 12/18/20 14:00 Dose: 125 mls/hr Documented by: - Exam General: Alert, Oriented, Cooperative Neck: Supple, Trachea Midline Lungs: Clear to Auscultation, Normal Respiratory Effort Cardiovascular: Regular Rate, Regular Rhythm GI/Abdominal Exam: Normal Bowel Sounds, Soft, Non-Tender, No Organomegaly, No Distention, No Abnormal Bruit, No Mass, Pelvis Stable Back Exam: Normal Inspection, Full Range of Motion Extremities: Normal Inspection, Normal Range of Motion, Non-Tender, No Pedal Edema, Normal Capillary Refill Peripheral Pulses: 2+: Radial (L), Radial (R), Posterior Tibial (L), Posterior Tibial (R) Skin: Warm, Dry, Intact Neurological: No New Focal Deficit Psy/Mental Status: Alert, Normal Affect, Normal Mood - Patient Data Lab Results Last 24 hrs: Laboratory Results - last 24 hr 12/18/20 12/19/20 12/19/20 Range/Units 18:25 07:00 07:00 Hgb 10.4 L 7.9 L* (12.0-16.0) g/dL Sodium 147 H (136-145) mEq/L Potassium 3.8 (3.5-5.0) mEq/L Chloride 114 H (98-106) mEq/L Carbon Dioxide 25 (21-32) mmol/L BUN 7 (7-18) mg/dL Creatinine 0.6 (0.6-1.0) mg/dL Est Cr Clr Drug Dosing 52.67 mL/min Estimated GFR (MDRD) > 60 (>=60) mL/min Glucose 96 (75-99) mg/dL Calcium 7.8 L (8.4-10.1) mg/dL Total Bilirubin 0.3 (0.0-1.0) mg/dL AST 10 L (15-37) U/L ALT 14 (12-78) U/L Alkaline Phosphatase 56 (46-116) U/L Total Protein 4.5 L (6.4-8.2) g/dL Albumin 2.1 L (3.4-5.0) g/dL Result Diagrams: 12/19/20 07:00 12/19/20 07:00 Drew Results Last 24 hrs: Microbiology 12/18/20 09:54 Occult Blood - Preliminary Stool / Feces Sepsis Event Note - Evaluation Sepsis Screening Result: No Definite Risk - Focused Exam Vital Signs: Vital Signs Temp Pulse Resp BP BP Pulse Ox 12/19/20 08:00 97.8 F 75 20 181/76 H 97 12/19/20 07:37 181/76 H 12/19/20 04:00 98.8 F 72 18 131/60 100 12/19/20 00:00 98.4 F 68 18 146/51 H 98 - Problem List Review Problem List Initiated/Reviewed/Updated: Yes - My Orders Last 24 Hours: My Active Orders 12/19/20 Breakfast Clear Liquid Diet [DIET] - Plan Plan:: 12/19/2020 1100am This patient had a scope on with 4 ulcers seen that were clotted no active bleeding. Last night patient had 2 large BMs with about 400ml of dark blood per RN. Hgb today is 7.9, yesterday was 10.4. She is asymptomatic as far as no lightheaded, dizziness, n, v, d, f, chest pain, shortness of breath, fatigue, weakness, pallor. No tachycardia, no hypotension. Patient is alert and oriented. Patient is a DNR/DNI. Discussed any further treatment with patient, she does not want anything done. No blood at this time. RN reports patient only had a small BM this morning with no visible blood. Discussed patient with Dr. Nesbitt who performed scope. No further changes at this time. Will continue protonix. Again, patient reports she does not want anything else done at this time. She remains hemodynamically stable. Will obtain labs tomorrow.
[2020-12-20] MEDS: Acetaminophen 325 MG Tab PO PRN (02:17)
[2020-12-20] MEDS: Calcium Carbonate 500 MG Tab.Chew PO SCH ×3 (08:09→19:42)
[2020-12-20] MEDS: Potassium Chloride 10 MEQ Tab.ER PO SCH ×2 (08:09→17:20)
[2020-12-20] MEDS: Sertraline 25 MG Tab PO SCH (08:10)
[2020-12-20] MEDS: Multivitamin Tab PO SCH (08:10)
[2020-12-20] MEDS: Lisinopril 10 MG Tab PO SCH (08:10)
[2020-12-20] MEDS: Formoterol/Mometasone 200-5 MCG 8.8 GM Inhaler IH SCH ×2 (08:11→19:43)
[2020-12-20] MEDS: Pantoprazole 40 MG Vial IVPUSH SCH ×2 (08:11→19:42)
[2020-12-20] MEDS: Sucralfate Suspension 1 GM/10 ML Cup PO SCH ×3 (09:51→22:09)
--- NOTE | 2020-12-20 10:32 | PCM.PN ---
- General Info Date of Service: 12/20/20 Functional Status: Reports: Pain Controlled, Tolerating Diet (clear liquid), Ambulating, Urinating - Review of Systems General: Reports: No Symptoms HEENT: Reports: No Symptoms Pulmonary: Reports: No Symptoms Cardiovascular: Reports: No Symptoms Gastrointestinal: Reports: Hematochezia. Denies: Abdominal Pain, Constipation, Decreased Appetite, Diarrhea, Difficulty Swallowing, Nausea, Vomiting Genitourinary: Reports: No Symptoms Musculoskeletal: Reports: No Symptoms Skin: Reports: No Symptoms Neurological: Reports: No Symptoms Psychiatric: Reports: No Symptoms - Patient Data Vitals - Most Recent: Last Vital Signs Temp 99.0 F 12/20/20 08:00 Pulse 74 12/20/20 08:00 Resp 20 12/20/20 08:00 BP 136/42 L 12/20/20 08:10 Pulse Ox 97 12/20/20 08:00 Weight - Most Recent: 113 lb 8 oz Lab Results Last 24 Hours: Laboratory Results - last 24 hr 12/20/20 Range/Units 06:55 WBC 8.5 (5.0-10.0) 10^3/uL RBC 2.44 L (4.00-5.50) 10^6/uL Hgb 7.6 L* (12.0-16.0) g/dL Hct 23.6 L (37.0-47.0) % MCV 96.7 H (82.0-94.0) fL MCH 31.1 (27.0-32.0) pg MCHC 32.2 L (33.0-38.0) g/dL RDW Coeff of Sylvie 15.1 H (11.0-15.0) % Plt Count 201 (150-400) 10^3/uL Neut % (Auto) 64.8 (35-85) % Lymph % (Auto) 23.0 (10-55) % [place] % (Auto) 9.5 (0-16) % Eos % (Auto) 2.5 (0-5) % Baso % (Auto) 0.2 (0-3) % Neut # (Auto) 5.54 (1.80-7.00) 10^3/uL Lymph # (Auto) 1.96 (1.00-4.80) 10^3/uL [place] # (Auto) 0.81 H (0.00-0.80) 10^3/uL Eos # (Auto) 0.21 (0.00-0.45) 10^3/uL Baso # (Auto) 0.02 10^3/uL Drew Results Last 24 Hours: Microbiology 12/18/20 09:54 Occult Blood - Preliminary Stool / Feces Med Orders - Current: Current Medications Acetaminophen (Acetaminophen 325 Mg Tab) 650 mg PO Q4H PRN PRN Reason: Pain (Mild 1-3)/fever Last Admin: 12/20/20 02:17 Dose: 650 mg Documented by: Calcium Carbonate/Glycine (Calcium Carbonate 500 Mg Tab.Chew) 500 mg PO TID [facility] Last Admin: 12/20/20 08:09 Dose: 500 mg Documented by: Lisinopril (Lisinopril 10 Mg Tab) 10 mg PO DAILY [facility] Last Admin: 12/20/20 08:10 Dose: 10 mg Documented by: Mometasone Furoate/Formoterol Fumar (Formoterol/Mometasone 200-5 Mcg 8.8 Gm Inhaler) 0 puff IH BID [facility] Last Admin: 12/20/20 08:11 Dose: 2 puff Documented by: Multivitamins/Minerals/Vitamin C (Multivitamin Tab) 1 tab PO DAILY [facility] Last Admin: 12/20/20 08:10 Dose: 1 tab Documented by: Ondansetron HCl (Ondansetron 4 Mg/2 Ml Sdv) 4 mg IVPUSH Q4H PRN PRN Reason: Nausea/Vomiting Oxyquinoline Sulfate (Oxyquinoline/Emollient 0.3% Oint 1 Oz Canister) 0 oz TOP ASDIRECTED PRN PRN Reason: Pain (moderate 4-6) Last Admin: 12/18/20 16:00 Dose: 1 applic Documented by: Pantoprazole Sodium (Pantoprazole 40 Mg Vial) 40 mg IVPUSH BID [facility] Last Admin: 12/20/20 08:11 Dose: 40 mg Documented by: Potassium Chloride (Potassium Chloride 10 Meq Tab.Er) 20 meq PO BIDMEALS [facility] Last Admin: 12/20/20 08:09 Dose: 20 meq Documented by: Sertraline HCl (Sertraline 25 Mg Tab) 50 mg PO DAILY [facility] Last Admin: 12/20/20 08:10 Dose: 50 mg Documented by: Sucralfate (Sucralfate Suspension 1 Gm/10 Ml Cup) 1 gm PO Q6H [facility] Last Admin: 12/20/20 09:51 Dose: 1 gm Documented by: Discontinued Medications Potassium Chloride 20 meq/ (Premix) 100 mls @ 25 mls/hr IV ONETIME ONE Stop: 12/18/20 13:53 Last Admin: 12/18/20 11:02 Dose: 25 mls/hr Documented by: Sodium Chloride (Normal Saline (Advbag)) Confirm Administered Dose 250 mls @ as directed .ROUTE .STK-MED ONE Stop: 12/18/20 11:37 Last Admin: 12/18/20 12:14 Dose: Not Given Documented by: Sodium Chloride (Normal Saline) 250 mls @ 100 mls/hr IV ASDIRECTED [facility] Sodium Chloride (Normal Saline) 250 mls @ 125 mls/hr IV Q2H [facility] Stop: 12/18/20 16:44 Last Admin: 12/18/20 14:00 Dose: 125 mls/hr Documented by: - Exam General: Alert, Oriented, Cooperative, No Acute Distress HEENT: Pupils Equal, Pupils Reactive Neck: Supple, Trachea Midline Lungs: Clear to Auscultation, Normal Respiratory Effort Cardiovascular: Regular Rate, Regular Rhythm GI/Abdominal Exam: Normal Bowel Sounds, Soft, Non-Tender, No Organomegaly, No Distention, No Abnormal Bruit, No Mass, Pelvis Stable (Female) Exam: Deferred Back Exam: Normal Inspection, Full Range of Motion Extremities: Normal Inspection, Normal Range of Motion, Non-Tender, No Pedal Edema, Normal Capillary Refill Peripheral Pulses: 2+: Radial (L), Radial (R), Posterior Tibial (L), Posterior Tibial (R), Dorsalis Pedis (L), Dorsalis Pedis (R) Skin: Warm, Dry, Intact Neurological: No New Focal Deficit, Normal Speech Psy/Mental Status: Alert, Normal Affect, Normal Mood - Patient Data Lab Results Last 24 hrs: Laboratory Results - last 24 hr 12/20/20 Range/Units 06:55 WBC 8.5 (5.0-10.0) 10^3/uL RBC 2.44 L (4.00-5.50) 10^6/uL Hgb 7.6 L* (12.0-16.0) g/dL Hct 23.6 L (37.0-47.0) % MCV 96.7 H (82.0-94.0) fL MCH 31.1 (27.0-32.0) pg MCHC 32.2 L (33.0-38.0) g/dL RDW Coeff of Sylvie 15.1 H (11.0-15.0) % Plt Count 201 (150-400) 10^3/uL Neut % (Auto) 64.8 (35-85) % Lymph % (Auto) 23.0 (10-55) % [place] % (Auto) 9.5 (0-16) % Eos % (Auto) 2.5 (0-5) % Baso % (Auto) 0.2 (0-3) % Neut # (Auto) 5.54 (1.80-7.00) 10^3/uL Lymph # (Auto) 1.96 (1.00-4.80) 10^3/uL [place] # (Auto) 0.81 H (0.00-0.80) 10^3/uL Eos # (Auto) 0.21 (0.00-0.45) 10^3/uL Baso # (Auto) 0.02 10^3/uL Result Diagrams: 12/20/20 06:55 12/19/20 07:00 Drew Results Last 24 hrs: Microbiology 12/18/20 09:54 Occult Blood - Preliminary Stool / Feces Sepsis Event Note - Evaluation Sepsis Screening Result: No Definite Risk - Focused Exam Vital Signs: Vital Signs Temp Pulse Resp BP BP Pulse Ox 12/20/20 08:10 136/42 L 12/20/20 08:00 99.0 F 74 20 136/42 L 97 12/20/20 00:00 100.2 F 87 18 132/61 94 L - Problem List Review Problem List Initiated/Reviewed/Updated: Yes - My Orders Last 24 Hours: My Active Orders 12/20/20 Breakfast Full Liquid Diet [DIET] 12/20/20 09:30 Sucralfate [Carafate] 1 gm PO Q6H - Plan Plan:: 12/19/2020 1100am This patient had a scope on with 4 ulcers seen that were clotted no active bleeding. Last night patient had 2 large BMs with about 400ml of dark blood per RN. Hgb today is 7.9, yesterday was 10.4. She is asymptomatic as far as no lightheaded, dizziness, n, v, d, f, chest pain, shortness of breath, fatigue, weakness, pallor. No tachycardia, no hypotension. Patient is alert and oriented. Patient is a DNR/DNI. Discussed any further treatment with patient, she does not want anything done. No blood at this time. RN reports patient only had a small BM this morning with no visible blood. Discussed patient with Dr. Nesbitt who performed scope. No further changes at this time. Will continue protonix. Again, patient reports she does not want anything else done at this time. She remains hemodynamically stable. Will obtain labs tomorrow. 12/20/2020 0940am The patient today reports that she has a small BM with darker blood late last night. She reports that none today. The patient denies headache, n, v, d, f, lightheaded, chest pain, shortness of breath, abd pain, abd cramping. Patient is alert and oriented. Will continue the Protonix. I have also added Carafate QID to this patient as well. Her hgb yesterday was 7.9, today is 7.6. Not transfusion criteria at this time. Will continue to monitor her and her vitals and labs. Her VS are 99.0, 74 heart rate, 20 respiratory, 97% RA, and 136/42.
[2020-12-21] MEDS: Sucralfate Suspension 1 GM/10 ML Cup PO SCH ×4 (03:28→19:37)
[2020-12-21] MEDS: Formoterol/Mometasone 200-5 MCG 8.8 GM Inhaler IH SCH ×2 (07:47→19:37)
[2020-12-21] MEDS: Calcium Carbonate 500 MG Tab.Chew PO SCH ×3 (07:47→19:39)
[2020-12-21] MEDS: Sertraline 25 MG Tab PO SCH (07:48)
[2020-12-21] MEDS: Lisinopril 10 MG Tab PO SCH (07:49)
[2020-12-21] MEDS: Multivitamin Tab PO SCH (07:49)
[2020-12-21] MEDS: Potassium Chloride 10 MEQ Tab.ER PO SCH ×2 (07:49→17:22)
[2020-12-21] MEDS: Pantoprazole 40 MG Vial IVPUSH SCH ×2 (07:52→19:34)
[2020-12-22] MEDS: Sucralfate Suspension 1 GM/10 ML Cup PO SCH ×4 (06:10→19:26)
[2020-12-22] MEDS: Formoterol/Mometasone 200-5 MCG 8.8 GM Inhaler IH SCH ×2 (07:53→19:28)
[2020-12-22] MEDS: Pantoprazole 40 MG Vial IVPUSH SCH ×2 (07:55→19:29)
[2020-12-22] MEDS: Calcium Carbonate 500 MG Tab.Chew PO SCH ×3 (07:57→19:26)
[2020-12-22] MEDS: Potassium Chloride 10 MEQ Tab.ER PO SCH ×2 (07:57→17:06)
[2020-12-22] MEDS: Sertraline 25 MG Tab PO SCH (07:58)
[2020-12-22] MEDS: Lisinopril 10 MG Tab PO SCH (07:58)
[2020-12-22] MEDS: Multivitamin Tab PO SCH (07:59)
[2020-12-22] MEDS ORDERED: Sodium Chloride 0.9% 500 ML IV SCH (10:30)
--- NOTE | 2020-12-22 12:13 | PCM.PN ---
- General Info Date of Service: 12/22/20 Subjective Update: Vanita admits to episodes of bloody stools again last night. She states she feels okay. Had EGD with noted healing ulcers last week. Functional Status: Reports: Pain Controlled, Ambulating, Urinating - Review of Systems General: Reports: No Symptoms HEENT: Reports: No Symptoms Pulmonary: Reports: No Symptoms Cardiovascular: Reports: No Symptoms Gastrointestinal: Reports: Diarrhea, Melena, Other (bloody stools). Denies: Abdominal Pain, Decreased Appetite, Vomiting Genitourinary: Reports: No Symptoms Musculoskeletal: Reports: No Symptoms Skin: Reports: No Symptoms Neurological: Reports: No Symptoms - Patient Data Vitals - Most Recent: Last Vital Signs Temp 97.5 F 12/22/20 10:58 Pulse 65 12/22/20 10:58 Resp 18 12/22/20 10:58 BP 150/53 H 12/22/20 10:58 Pulse Ox 94 L 12/22/20 07:52 Weight - Most Recent: 113 lb 8 oz I&O - Last 24 Hours: Intake & Output 12/21/20 12/22/20 12/22/20 22:59 06:59 14:59 Intake Total 0 Balance 0 Lab Results Last 24 Hours: Laboratory Results - last 24 hr 12/22/20 12/22/20 Range/Units 06:55 08:42 Hgb 6.8 L* (12.0-16.0) g/dL Hct 21.2 L (37.0-47.0) % Blood Type O POSITIVE Gel Antibody Screen Negative Crossmatch See Detail Med Orders - Current: Current Medications Acetaminophen (Acetaminophen 325 Mg Tab) 650 mg PO Q4H PRN PRN Reason: Pain (Mild 1-3)/fever Last Admin: 12/20/20 02:17 Dose: 650 mg Documented by: Calcium Carbonate/Glycine (Calcium Carbonate 500 Mg Tab.Chew) 500 mg PO TID [facility] Last Admin: 12/22/20 07:57 Dose: 500 mg Documented by: Furosemide (Furosemide 40 Mg/4 Ml Vial) 40 mg IVPUSH ONETIME ONE Stop: 12/22/20 12:46 Sodium Chloride (Normal Saline) 500 mls @ 50 mls/hr IV ASDIRECTED [facility] Last Admin: 12/22/20 10:23 Dose: 50 mls/hr Documented by: Lisinopril (Lisinopril 10 Mg Tab) 10 mg PO DAILY [facility] Last Admin: 12/22/20 07:58 Dose: 10 mg Documented by: Mometasone Furoate/Formoterol Fumar (Formoterol/Mometasone 200-5 Mcg 8.8 Gm Inhaler) 2 puff IH BID [facility] Last Admin: 12/22/20 07:53 Dose: 2 puff Documented by: Multivitamins/Minerals/Vitamin C (Multivitamin Tab) 1 tab PO DAILY [facility] Last Admin: 12/22/20 07:59 Dose: 1 tab Documented by: Ondansetron HCl (Ondansetron 4 Mg/2 Ml Sdv) 4 mg IVPUSH Q4H PRN PRN Reason: Nausea/Vomiting Oxyquinoline Sulfate (Oxyquinoline/Emollient 0.3% Oint 1 Oz Canister) 0 oz TOP ASDIRECTED PRN PRN Reason: Pain (moderate 4-6) Last Admin: 12/18/20 16:00 Dose: 1 applic Documented by: Pantoprazole Sodium (Pantoprazole 40 Mg Vial) 40 mg IVPUSH BID [facility] Last Admin: 12/22/20 07:55 Dose: 40 mg Documented by: Potassium Chloride (Potassium Chloride 10 Meq Tab.Er) 20 meq PO BIDMEALS [facility] Last Admin: 12/22/20 07:57 Dose: 20 meq Documented by: Sertraline HCl (Sertraline 25 Mg Tab) 50 mg PO DAILY [facility] Last Admin: 12/22/20 07:58 Dose: 50 mg Documented by: Sucralfate (Sucralfate Suspension 1 Gm/10 Ml Cup) 1 gm PO QIDACANDBED [facility] Last Admin: 12/22/20 06:10 Dose: 1 gm Documented by: Discontinued Medications Potassium Chloride 20 meq/ (Premix) 100 mls @ 25 mls/hr IV ONETIME ONE Stop: 12/18/20 13:53 Last Admin: 12/18/20 11:02 Dose: 25 mls/hr Documented by: Sodium Chloride (Normal Saline (Advbag)) Confirm Administered Dose 250 mls @ as directed .ROUTE .STK-MED ONE Stop: 12/18/20 11:37 Last Admin: 12/18/20 12:14 Dose: Not Given Documented by: Sodium Chloride (Normal Saline) 250 mls @ 100 mls/hr IV ASDIRECTED [facility] Sodium Chloride (Normal Saline) 250 mls @ 125 mls/hr IV Q2H [facility] Stop: 12/18/20 16:44 Last Admin: 12/18/20 14:00 Dose: 125 mls/hr Documented by: Mometasone Furoate/Formoterol Fumar (Formoterol/Mometasone 200-5 Mcg 8.8 Gm Inhaler) 0 puff IH BID [facility] Last Admin: 12/21/20 07:47 Dose: 2 puff Documented by: Sucralfate (Sucralfate Suspension 1 Gm/10 Ml Cup) 1 gm PO Q6H [facility] Last Admin: 12/21/20 09:34 Dose: 1 gm Documented by: - Exam General: Alert, Oriented, Cooperative Lungs: Clear to Auscultation, Normal Respiratory Effort Cardiovascular: Regular Rate, Regular Rhythm GI/Abdominal Exam: Normal Bowel Sounds, Soft, No Distention Extremities: Normal Inspection, No Pedal Edema Skin: Warm, Dry, Intact Psy/Mental Status: Alert, Normal Affect, Normal Mood - Patient Data Lab Results Last 24 hrs: Laboratory Results - last 24 hr 12/22/20 12/22/20 Range/Units 06:55 08:42 Hgb 6.8 L* (12.0-16.0) g/dL Hct 21.2 L (37.0-47.0) % Blood Type O POSITIVE Gel Antibody Screen Negative Crossmatch See Detail Result Diagrams: 12/22/20 06:55 12/19/20 07:00 Sepsis Event Note - Evaluation Sepsis Screening Result: No Definite Risk - Focused Exam Vital Signs: Vital Signs Temp Temp Pulse Resp BP BP Pulse Ox 12/22/20 10:58 97.5 F 65 18 150/53 H 12/22/20 10:43 98.3 F 68 18 127/55 L 12/22/20 10:30 97.7 F 70 20 138/54 L 12/22/20 07:58 108/90 12/22/20 07:52 98.5 F 75 20 108/90 94 L - Problem List & Annotations (1) GI bleeding SNOMED Code(s): 35677737 Code(s): K92.2 - GASTROINTESTINAL HEMORRHAGE, UNSPECIFIED Status: Acute Current Visit: No Qualifiers: GI bleed type/associated pathology: gastric ulcer Qualified Code(s): K25.4 - Chronic or unspecified gastric ulcer with hemorrhage - Problem List Review Problem List Initiated/Reviewed/Updated: Yes - My Orders Last 24 Hours: My Active Orders 12/21/20 13:42 Mometasone/Formoterol [Dulera 200-5 MCG] 2 puff IH BID 12/22/20 08:42 RED BLOOD CELLS LP [BBK] Routine TYPE AND SCREEN [BBK] Routine Transfuse Red Blood Cells [COMM] Stat 12/22/20 10:30 Sodium Chloride 0.9% [Normal Saline] 500 ml IV ASDIRECTED 12/22/20 12:45 Furosemide [Lasix] 40 mg IVPUSH ONETIME ONE 12/23/20 05:11 BMP [BASIC METABOLIC PANEL,BMP] [CHEM] AM CBC WITH AUTO DIFF [HEME] AM - Plan Plan:: 12/19/2020 1100am This patient had a scope on with 4 ulcers seen that were clotted no active bleeding. Last night patient had 2 large BMs with about 400ml of dark blood per RN. Hgb today is 7.9, yesterday was 10.4. She is asymptomatic as far as no lightheaded, dizziness, n, v, d, f, chest pain, shortness of breath, fatigue, weakness, pallor. No tachycardia, no hypotension. Patient is alert and oriented. Patient is a DNR/DNI. Discussed any further treatment with patient, she does not want anything done. No blood at this time. RN reports patient only had a small BM this morning with no visible blood. Discussed patient with Dr. Nesbitt who performed scope. No further changes at this time. Will continue protonix. Again, patient reports she does not want anything else done at this time. She remains hemodynamically stable. Will obtain labs tomorrow. 12/20/2020 0940am The patient today reports that she has a small BM with darker blood late last night. She reports that none today. The patient denies headache, n, v, d, f, lightheaded, chest pain, shortness of breath, abd pain, abd cramping. Patient is alert and oriented. Will continue the Protonix. I have also added Carafate QID to this patient as well. Her hgb yesterday was 7.9, today is 7.6. Not transfusion criteria at this time. Will continue to monitor her and her vitals and labs. Her VS are 99.0, 74 heart rate, 20 respiratory, 97% RA, and 136/42. 12/22/2020 Patient's Hgb has dropped to 6.8 today. Will give pRBC's, 2 units today. Patient will continue IV protonix. Back to clear liquid diet. Will continue to closely monitor vitals and labs as well in am.
[2020-12-22] MEDS ORDERED: Furosemide 40 MG/4 ML VIAL IVPUSH ONE (12:45)
[2020-12-23] MEDS: Sucralfate Suspension 1 GM/10 ML Cup PO SCH ×4 (06:07→20:12)
[2020-12-23 07:36] LABS: CHLORIDE,CL 111 mEq/L (98-106); SODIUM,NA 146 mEq/L (136-145)
[2020-12-23] MEDS: Formoterol/Mometasone 200-5 MCG 8.8 GM Inhaler IH SCH ×2 (09:41→20:14)
[2020-12-23] MEDS: Lisinopril 10 MG Tab PO SCH (09:42)
[2020-12-23] MEDS: Calcium Carbonate 500 MG Tab.Chew PO SCH ×3 (09:42→20:12)
[2020-12-23] MEDS: Potassium Chloride 10% 20 MEQ/15 ML Soln 15 ML UD Cup PO SCH ×3 (09:43→17:44)
[2020-12-23] MEDS: Sertraline 25 MG Tab PO SCH (09:43)
[2020-12-23] MEDS: Multivitamin Tab PO SCH (09:43)
[2020-12-23] MEDS: Pantoprazole 40 MG Vial IVPUSH SCH ×2 (09:44→20:13)
--- NOTE | 2020-12-23 09:48 | PCM.SN.2 ---
- Free Text/Narrative Note: Vanita is upset this morning and requesting to eat. She states starving her is not helping her. Discussed GI bleeds and by increasing diet we may cause the ulcers to bleed again. Discussed coffee and not being a great choice with known ulcers. Patient does not care and asks to eat. We will advance diet as she did have 3 brown stools yesterday evening. No gross blood. Discussed risks with Vanita which she states she doesn't care. Would rather eat than to starve to .
[2020-12-24] MEDS: Sucralfate Suspension 1 GM/10 ML Cup PO SCH ×4 (05:37→19:55)
[2020-12-24 07:38] LABS: CHLORIDE,CL 112 mEq/L (98-106); SODIUM,NA 147 mEq/L (136-145)
[2020-12-24] MEDS: Calcium Carbonate 500 MG Tab.Chew PO SCH ×3 (07:46→19:55)
[2020-12-24] MEDS: Pantoprazole 40 MG Vial IVPUSH SCH ×2 (07:46→19:55)
[2020-12-24] MEDS: Multivitamin Tab PO SCH (07:46)
[2020-12-24] MEDS: Sertraline 25 MG Tab PO SCH (07:46)
[2020-12-24] MEDS: Lisinopril 10 MG Tab PO SCH (07:46)
[2020-12-24] MEDS: Potassium Chloride 10% 20 MEQ/15 ML Soln 15 ML UD Cup PO SCH ×3 (07:47→16:36)
[2020-12-24] MEDS: Formoterol/Mometasone 200-5 MCG 8.8 GM Inhaler IH SCH ×2 (07:49→19:57)
[2020-12-24] MEDS ORDERED: Potassium Chloride Riders 40 MEQ in Premix Bag 1 BAG IV ONE (10:00)
--- NOTE | 2020-12-24 13:25 | PCM.SN.2 ---
- Free Text/Narrative Note: Vanita did not have any bloody stools over night. Hgb is stable today at 9.5 today. Will continue to advance diet. Potassium quite low at 2.8 today and will give 40 mEq IV today. Patient declines taking oral potassium. Discussed prison with patient, which she is not willing to discuss at this time. 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 Discussed concerns of weakness at home and caring for herself, which she states she will be fine. If potassium is corrected and Hgb is stable will plan for discharge home tomorrow.
[2020-12-24] MEDS ORDERED: Sodium Chloride 0.9% 100 ML IV SCH (13:45)
[2020-12-24] MEDS ORDERED: Sodium Chloride 0.9% 1,000 ML IV ONE (14:26)
[2020-12-24] MEDS: Loperamide 2 MG Cap PO PRN (16:36)
[2020-12-25] MEDS: Loperamide 2 MG Cap PO PRN (01:57)
[2020-12-25] MEDS: Sucralfate Suspension 1 GM/10 ML Cup PO SCH ×4 (06:06→19:36)
[2020-12-25] MEDS: Multivitamin Tab PO SCH (07:46)
[2020-12-25] MEDS: Lisinopril 10 MG Tab PO SCH (07:46)
[2020-12-25] MEDS: Sertraline 25 MG Tab PO SCH (07:46)
[2020-12-25] MEDS: Calcium Carbonate 500 MG Tab.Chew PO SCH ×3 (07:46→19:35)
[2020-12-25] MEDS: Potassium Chloride 10% 20 MEQ/15 ML Soln 15 ML UD Cup PO SCH ×2 (07:47→17:13)
[2020-12-25] MEDS: Pantoprazole 40 MG Vial IVPUSH SCH ×2 (07:47→19:35)
[2020-12-25] MEDS: Formoterol/Mometasone 200-5 MCG 8.8 GM Inhaler IH SCH ×2 (07:47→19:36)
[2020-12-25] MEDS: Ondansetron 4 MG/2 ML SDV IVPUSH PRN ×2 (08:28→19:51)
[2020-12-25 08:31] LABS: CHLORIDE,CL 112 mEq/L (98-106); SODIUM,NA 147 mEq/L (136-145)
[2020-12-25] MEDS: Acetaminophen 325 MG Tab PO PRN (09:48)
[2020-12-25] MEDS ORDERED: Levofloxacin/Dextrose 5%-Water 500 MG in Premix Bag 1 BAG IV ONE (14:00)
--- NOTE | 2020-12-25 17:36 | PCM.PN ---
- General Info Date of Service: 12/25/20 Subjective Update: Vanita started to have a fever this morning with diarrhea. She has been complaining of abdominal discomfort as well. Patient was going to be discharged home today as no further bloody stools with recent GI bleed secondary to gastric ulcers. Functional Status: Reports: Tolerating Diet, Ambulating, Urinating - Review of Systems General: Reports: Fever, Weakness HEENT: Reports: No Symptoms Pulmonary: Reports: No Symptoms Cardiovascular: Reports: No Symptoms Gastrointestinal: Reports: Abdominal Pain Genitourinary: Reports: No Symptoms Musculoskeletal: Reports: No Symptoms Skin: Reports: No Symptoms - Patient Data Vitals - Most Recent: Last Vital Signs Temp 98 F 12/25/20 07:53 Pulse 74 12/25/20 07:53 Resp 18 12/25/20 07:53 BP 118/67 12/25/20 07:53 Pulse Ox 99 12/25/20 07:53 Weight - Most Recent: 113 lb 6.4 oz Lab Results Last 24 Hours: Laboratory Results - last 24 hr 12/25/20 12/25/20 Range/Units 05:11 08:27 Hgb 9.5 L (12.0-16.0) g/dL Hct 29.2 L (37.0-47.0) % Sodium 147 H (136-145) mEq/L Potassium 3.8 D (3.5-5.0) mEq/L Chloride 112 H (98-106) mEq/L Carbon Dioxide 23 (21-32) mmol/L BUN 15 (7-18) mg/dL Creatinine 0.8 (0.6-1.0) mg/dL Est Cr Clr Drug Dosing 39.47 mL/min Estimated GFR (MDRD) > 60 (>=60) mL/min Glucose 89 (75-99) mg/dL Calcium 8.0 L (8.4-10.1) mg/dL Drew Results Last 24 Hours: Microbiology 12/25/20 10:09 C. difficile DNA Amplification - Final Stool / Feces NEGATIVE CDIFF BY DNA REFERENCE RANGE: NEGATIVE 12/25/20 13:04 Stool for WBCs - Final Stool / Feces NO WBC SEEN REFERENCE RANGE: NO WBC SEEN Med Orders - Current: Current Medications Acetaminophen (Acetaminophen 325 Mg Tab) 650 mg PO Q4H PRN PRN Reason: Pain (Mild 1-3)/fever Last Admin: 12/25/20 09:48 Dose: 650 mg Documented by: Calcium Carbonate/Glycine (Calcium Carbonate 500 Mg Tab.Chew) 500 mg PO TID [facility] Last Admin: 12/25/20 13:05 Dose: 500 mg Documented by: Levofloxacin/Dextrose 250 mg/ (Premix) 50 mls @ 50 mls/hr IV Q24H [facility] Lisinopril (Lisinopril 10 Mg Tab) 10 mg PO DAILY [facility] Last Admin: 12/25/20 07:46 Dose: 10 mg Documented by: Loperamide HCl (Loperamide 2 Mg Cap) 4 mg PO Q6H PRN PRN Reason: Diarrhea Last Admin: 12/25/20 01:57 Dose: 4 mg Documented by: Mometasone Furoate/Formoterol Fumar (Formoterol/Mometasone 200-5 Mcg 8.8 Gm Inhaler) 2 puff IH BID [facility] Last Admin: 12/25/20 07:47 Dose: 2 puff Documented by: Multivitamins/Minerals/Vitamin C (Multivitamin Tab) 1 tab PO DAILY [facility] Last Admin: 12/25/20 07:46 Dose: 1 tab Documented by: Ondansetron HCl (Ondansetron 4 Mg/2 Ml Sdv) 4 mg IVPUSH Q4H PRN PRN Reason: Nausea/Vomiting Last Admin: 12/25/20 08:28 Dose: 4 mg Documented by: Oxyquinoline Sulfate (Oxyquinoline/Emollient 0.3% Oint 1 Oz Canister) 0 oz TOP ASDIRECTED PRN PRN Reason: Pain (moderate 4-6) Last Admin: 12/18/20 16:00 Dose: 1 applic Documented by: Pantoprazole Sodium (Pantoprazole 40 Mg Vial) 40 mg IVPUSH BID [facility] Last Admin: 12/25/20 07:47 Dose: 40 mg Documented by: Potassium Chloride (Potassium Chloride 10% 20 Meq/15 Ml Soln 15 Ml Ud Cup) 20 meq PO BIDMEALS [facility] Last Admin: 12/25/20 17:13 Dose: Not Given Documented by: Sertraline HCl (Sertraline 25 Mg Tab) 50 mg PO DAILY [facility] Last Admin: 12/25/20 07:46 Dose: 50 mg Documented by: Sucralfate (Sucralfate Suspension 1 Gm/10 Ml Cup) 1 gm PO QIDACANDBED [facility] Last Admin: 12/25/20 15:55 Dose: 1 gm Documented by: Discontinued Medications Furosemide (Furosemide 40 Mg/4 Ml Vial) 40 mg IVPUSH ONETIME ONE Stop: 12/22/20 12:46 Last Admin: 12/22/20 13:20 Dose: 40 mg Documented by: Potassium Chloride 20 meq/ (Premix) 100 mls @ 25 mls/hr IV ONETIME ONE Stop: 12/18/20 13:53 Last Admin: 12/18/20 11:02 Dose: 25 mls/hr Documented by: Sodium Chloride (Normal Saline (Advbag)) Confirm Administered Dose 250 mls @ as directed .ROUTE .STK-MED ONE Stop: 12/18/20 11:37 Last Admin: 12/18/20 12:14 Dose: Not Given Documented by: Sodium Chloride (Normal Saline) 250 mls @ 100 mls/hr IV ASDIRECTED MICHAEL Sodium Chloride (Normal Saline) 250 mls @ 125 mls/hr IV Q2H [facility]HA[facility] Stop: 12/18/20 16:44 Last Admin: 12/18/20 14:00 Dose: 125 mls/hr Documented by: Sodium Chloride (Normal Saline) 500 mls @ 50 mls/hr IV ASDIRECTED MICHAEL Last Admin: 12/22/20 10:23 Dose: 50 mls/hr Documented by: Potassium Chloride 40 meq/ (Premix) 100 mls @ 25 mls/hr IV ONETIME ONE Stop: 12/24/20 13:59 Last Admin: 12/24/20 12:24 Dose: 25 mls/hr Documented by: Sodium Chloride (Normal Saline) 100 mls @ 25 mls/hr IV ASDIRECTED MICHAEL Sodium Chloride (Normal Saline) 1,000 mls @ 250 mls/hr IV ONETIME ONE Stop: 12/24/20 18:25 Last Admin: 12/24/20 14:55 Dose: 250 mls/hr Documented by: Levofloxacin/Dextrose 500 mg/ (Premix) 100 mls @ 100 mls/hr IV ONETIME ONE Stop: 12/25/20 14:59 Last Admin: 12/25/20 15:55 Dose: 100 mls/hr Documented by: Mometasone Furoate/Formoterol Fumar (Formoterol/Mometasone 200-5 Mcg 8.8 Gm Inhaler) 0 puff IH BID [facility] Last Admin: 12/21/20 07:47 Dose: 2 puff Documented by: Potassium Chloride (Potassium Chloride 10 Meq Tab.Er) 20 meq PO BIDMEALS [facility] Last Admin: 12/22/20 17:06 Dose: 20 meq Documented by: Sucralfate (Sucralfate Suspension 1 Gm/10 Ml Cup) 1 gm PO Q6H [facility] Last Admin: 12/21/20 09:34 Dose: 1 gm Documented by: - Exam General: Alert, Cooperative, No Acute Distress Lungs: Clear to Auscultation, Normal Respiratory Effort Cardiovascular: Regular Rate, Regular Rhythm GI/Abdominal Exam: Soft, No Organomegaly, No Mass, Tender Extremities: Normal Inspection, No Pedal Edema Skin: Warm, Dry, Intact Psy/Mental Status: Alert, Normal Affect, Normal Mood - Patient Data Lab Results Last 24 hrs: Laboratory Results - last 24 hr 12/25/20 12/25/20 Range/Units 05:11 08:27 Hgb 9.5 L (12.0-16.0) g/dL Hct 29.2 L (37.0-47.0) % Sodium 147 H (136-145) mEq/L Potassium 3.8 D (3.5-5.0) mEq/L Chloride 112 H (98-106) mEq/L Carbon Dioxide 23 (21-32) mmol/L BUN 15 (7-18) mg/dL Creatinine 0.8 (0.6-1.0) mg/dL Est Cr Clr Drug Dosing 39.47 mL/min Estimated GFR (MDRD) > 60 (>=60) mL/min Glucose 89 (75-99) mg/dL Calcium 8.0 L (8.4-10.1) mg/dL Result Diagrams: 12/25/20 05:11 12/25/20 08:27 Drew Results Last 24 hrs: Microbiology 12/25/20 10:09 C. difficile DNA Amplification - Final Stool / Feces NEGATIVE CDIFF BY DNA REFERENCE RANGE: NEGATIVE 12/25/20 13:04 Stool for WBCs - Final Stool / Feces NO WBC SEEN REFERENCE RANGE: NO WBC SEEN Sepsis Event Note - Evaluation Sepsis Screening Result: No Definite Risk - Focused Exam Vital Signs: Vital Signs Temp Pulse Resp BP BP Pulse Ox 12/25/20 07:53 98 F 74 18 118/67 99 12/25/20 07:46 118/62 - Problem List & Annotations (1) GI bleeding SNOMED Code(s): 58228732 Code(s): K92.2 - GASTROINTESTINAL HEMORRHAGE, UNSPECIFIED Status: Acute Current Visit: No Qualifiers: GI bleed type/associated pathology: gastric ulcer Qualified Code(s): K25.4 - Chronic or unspecified gastric ulcer with hemorrhage (2) Diarrhea SNOMED Code(s): 40855872 Code(s): R19.7 - DIARRHEA, UNSPECIFIED Status: Acute Current Visit: Yes (3) Weakness SNOMED Code(s): 00610023 Code(s): R53.1 - WEAKNESS Status: Acute Priority: High Current Visit: No - Problem List Review Problem List Initiated/Reviewed/Updated: Yes - My Orders Last 24 Hours: My Active Orders 12/24/20 Dinner Soft Diet [DIET] 12/25/20 10:09 STOOL CULTURE [MREF] Routine Isolation [COMM] Stat 12/26/20 05:11 BMP [BASIC METABOLIC PANEL,BMP] [CHEM] AM C-REACTIVE PROTEIN [CHEM] AM CBC WITH AUTO DIFF [HEME] AM 12/26/20 14:00 Levofloxacin/Dextrose 5%-Water [Levaquin in D5W 250 MG/50 ML] 250 mg Premix Bag 1 bag IV Q24H - Plan Plan:: 12/19/2020 1100am This patient had a scope on with 4 ulcers seen that were clotted no active bleeding. Last night patient had 2 large BMs with about 400ml of dark blood per RN. Hgb today is 7.9, yesterday was 10.4. She is asymptomatic as far as no lightheaded, dizziness, n, v, d, f, chest pain, shortness of breath, fatigue, weakness, pallor. No tachycardia, no hypotension. Patient is alert and oriented. Patient is a DNR/DNI. Discussed any further treatment with patient, she does not want anything done. No blood at this time. RN reports patient only had a small BM this morning with no visible blood. Discussed patient with Dr. Nesbitt who performed scope. No further changes at this time. Will continue protonix. Again, patient reports she does not want anything else done at this time. She remains hemodynamically stable. Will obtain labs tomorrow. 12/20/2020 0940am The patient today reports that she has a small BM with darker blood late last night. She reports that none today. The patient denies headache, n, v, d, f, lightheaded, chest pain, shortness of breath, abd pain, abd cramping. Patient is alert and oriented. Will continue the Protonix. I have also added Carafate QID to this patient as well. Her hgb yesterday was 7.9, today is 7.6. Not transfusion criteria at this time. Will continue to monitor her and her vitals and labs. Her VS are 99.0, 74 heart rate, 20 respiratory, 97% RA, and 136/42. 12/22/2020 Patient's Hgb has dropped to 6.8 today. Will give pRBC's, 2 units today. Patient will continue IV protonix. Back to clear liquid diet. Will continue to closely monitor vitals and labs as well in am. 12/25/2020 Patient's Hgb has continued to be stable at 9.5. Potassium corrected to 3.[address] Nesbitt about patient's current condition. Will get stool cultures today. Will start IV Levaquin. Will closely monitor.
[2020-12-26] MEDS: Sucralfate Suspension 1 GM/10 ML Cup PO SCH (07:03)
[2020-12-26] MEDS: Lisinopril 10 MG Tab PO SCH (08:38)
[2020-12-26] MEDS: Sertraline 25 MG Tab PO SCH (08:38)
[2020-12-26] MEDS: Multivitamin Tab PO SCH (08:38)
[2020-12-26] MEDS: Calcium Carbonate 500 MG Tab.Chew PO SCH ×3 (08:38→20:08)
[2020-12-26] MEDS: Formoterol/Mometasone 200-5 MCG 8.8 GM Inhaler IH SCH ×2 (08:39→20:08)
[2020-12-26] MEDS: Potassium Chloride 10% 20 MEQ/15 ML Soln 15 ML UD Cup PO SCH ×2 (08:39→17:04)
[2020-12-26] MEDS: Pantoprazole 40 MG Vial IVPUSH SCH (08:40)
[2020-12-26] MEDS: Sucralfate 1 GM Tab PO SCH ×4 (08:42→20:08)
[2020-12-26] MEDS ORDERED: Levofloxacin/Dextrose 5%-Water 250 MG in Premix Bag 1 BAG IV SCH (14:00)
[2020-12-26 20:14] VITALS: PULSE 78
[2020-12-27] MEDS: Sucralfate 1 GM Tab PO SCH (07:00)
[2020-12-27] MEDS ORDERED: Pantoprazole 40 MG Tab.CR PO SCH (07:30)
[2020-12-27] MEDS: Calcium Carbonate 500 MG Tab.Chew PO SCH (07:38)
[2020-12-27] MEDS: Sertraline 25 MG Tab PO SCH (07:38)
[2020-12-27] MEDS: Multivitamin Tab PO SCH (07:38)
[2020-12-27] MEDS: Lisinopril 10 MG Tab PO SCH (07:38)
[2020-12-27 07:41] VITALS: BP 127/60
[2020-12-27] MEDS: Potassium Chloride 10% 20 MEQ/15 ML Soln 15 ML UD Cup PO SCH (07:42)
[2020-12-27] MEDS: Formoterol/Mometasone 200-5 MCG 8.8 GM Inhaler IH SCH (07:42)
[2020-12-27] MEDS ORDERED: Levofloxacin 500 MG Tab PO SCH (08:00)
[2020-12-27] MEDS ORDERED: Sucralfate 1 GM Tab PO ONE (10:21)
--- NOTE | 2020-12-27 12:25 | PCM.DCSUM1 ---
Discharge Summary - Hospital Course Free Text/Narrative:: Vanita is an 89 year old female who was admitted for GI Bleed. She had been noting increased concerns with this for some time. While in the hospital, continued to have bloody stools. Had an EGD, found 4 ulcerated areas but no active bleeding at that time. Was started on IV Protonix, given a blood transfusion. Potassium was low and was given additional IV potassium. Transferred to swing bed for monitoring, correction of electrolyte abnormalities, IV meds. Diagnosis: Stroke: No Modified Angel Scale: No Symptoms at All Modified Delta Scale Score: 0 - Discharge Data Discharge Date: 12/27/20 Discharge Disposition: Home, Self-Care 01 Condition: Fair - Referral to Home Health Primary Care Physician: Kehinde Nesbitt MD - Discharge Diagnosis/Problem(s) (1) Diarrhea SNOMED Code(s): 80672057 ICD Code: R19.7 - DIARRHEA, UNSPECIFIED Status: Acute Priority: High Qualifiers: Diarrhea type: unspecified type Qualified Code(s): R19.7 - Diarrhea, unspecified (2) GI bleeding SNOMED Code(s): 24096002 ICD Code: K92.2 - GASTROINTESTINAL HEMORRHAGE, UNSPECIFIED Status: Acute Priority: High Qualifiers: GI bleed type/associated pathology: gastric ulcer Qualified Code(s): K25.4 - Chronic or unspecified gastric ulcer with hemorrhage (3) Hypokalemia SNOMED Code(s): 21252641 ICD Code: E87.6 - HYPOKALEMIA Status: Acute Priority: High (4) Weakness SNOMED Code(s): 27972538 ICD Code: R53.1 - WEAKNESS Status: Acute Priority: High - Patient Summary/Data Complications: none Consults: Consultations 12/18/20 09:54 Consult to Physician [CONS] Routine Hospital Course: Vanita is improved, stable. Has had stabilization of her GI bleed, no further blood in stools. She did develop abdominal pain and a low grade fever. was started on Levaquin. Stool studies were ordered, negative. Today, denies any shortness of breath, abdominal pain or nausea. Is tolerating her diet. Has continued to have concerns with her potassium levels. Patient feels related to her liquid potassium so has refused to take it. Will switch her back to capsules per her request. Hemoglobin is stabilized. Will discharge home with family. Follow up with Dr. Nesbitt in one week and recheck labs at that time. Continue Protonix and CArafate - Patient Instructions Diet: Usual Diet as Tolerated Activity: As Tolerated - Discharge Plan *PRESCRIPTION DRUG MONITORING PROGRAM REVIEWED*: No *COPY OF PRESCRIPTION DRUG MONITORING REPORT IN PATIENT JUSTINA: No Prescriptions/Med Rec: Sucralfate [Carafate] 1 gm PO QIDACANDBED #52 tablet Potassium Chloride 20 meq PO BID #60 tablet.er Pantoprazole [ProTONIX] 40 mg PO BIDAC #60 tab.cr Home Medications: Home Meds Acetaminophen [Tylenol Extra Strength] 500 mg PO Q8H PRN 06/15/16 [History] Budesonide/Formoterol [Symbicort 160-4.5 MCG] 2 inh INH BID 10/02/20 [History] lisinopriL [Lisinopril] 10 mg PO DAILY 10/02/20 [History] Lutein/Min/Vit C/Vit E Acetate [Ocuvite Lutein] 1 cap PO DAILY 12/15/20 [History] Melatonin 10 mg PO ASDIRECTED PRN 12/15/20 [History] Multivit-Min/Iron/Folic Acid/K [One Daily Women's Multivitamin] 1 tab PO DAILY 12/15/20 [History] Multivitamin/Iron/Folic Acid [Centrum Complete Multivit] 1 tab PO DAILY 12/15/20 [History] Sertraline [Zoloft] 50 mg PO DAILY 12/15/20 [History] Pantoprazole [ProTONIX] 40 mg PO BIDAC #60 tab.cr 12/27/20 [Rx] Potassium Chloride 20 meq PO BID #60 tablet.er 12/27/20 [Rx] Sucralfate [Carafate] 1 gm PO QIDACANDBED #52 tablet 12/27/20 [Rx] Referrals: Kehinde Nesbitt MD [Primary Care Provider] - (Follow up with DR. Nesbitt in one week. Need to discuss resumption of Plavix and Aspirin related to CVA versus risk with GI bleed) - Discharge Summary/Plan Comment DC Time >30 min.: No - General Info Date of Service: 12/27/20 Admission Dx/Problem (Free Text: GI Bleed Functional Status: Reports: Pain Controlled, Tolerating Diet, Ambulating - Review of Systems General: Reports: Weakness, Fatigue, Malaise. Denies: Fever HEENT: Reports: No Symptoms Pulmonary: Denies: Cough Cardiovascular: Denies: Chest Pain, Edema, Lightheadedness Gastrointestinal: Denies: Abdominal Pain, Nausea, Vomiting Genitourinary: Reports: No Symptoms Musculoskeletal: Reports: No Symptoms Skin: Reports: No Symptoms Neurological: Reports: Weakness - Patient Data Vitals - Most Recent: Last Vital Signs Temp 98.3 F 12/27/20 07:41 Pulse 78 12/26/20 20:00 Resp 18 12/27/20 07:41 BP 127/60 12/27/20 07:41 Pulse Ox 99 12/27/20 07:41 Weight - Most Recent: 113 lb 6.4 oz Med Orders - Current: Current Medications Discontinued Medications Acetaminophen (Acetaminophen 325 Mg Tab) 650 mg PO Q4H PRN PRN Reason: Pain (Mild 1-3)/fever Last Admin: 12/25/20 09:48 Dose: 650 mg Documented by: Calcium Carbonate/Glycine (Calcium Carbonate 500 Mg Tab.Chew) 500 mg PO TID MICHAEL Last Admin: 12/27/20 07:38 Dose: 500 mg Documented by: Furosemide (Furosemide 40 Mg/4 Ml Vial) 40 mg IVPUSH ONETIME ONE Stop: 12/22/20 12:46 Last Admin: 12/22/20 13:20 Dose: 40 mg Documented by: Potassium Chloride 20 meq/ (Premix) 100 mls @ 25 mls/hr IV ONETIME ONE Stop: 12/18/20 13:53 Last Admin: 12/18/20 11:02 Dose: 25 mls/hr Documented by: Sodium Chloride (Normal Saline (Advbag)) Confirm Administered Dose 250 mls @ as directed .ROUTE .STK-MED ONE Stop: 12/18/20 11:37 Last Admin: 12/18/20 12:14 Dose: Not Given Documented by: Sodium Chloride (Normal Saline) 250 mls @ 100 mls/hr IV ASDIRECTED [facility] Sodium Chloride (Normal Saline) 250 mls @ 125 mls/hr IV Q2H [facility] Stop: 12/18/20 16:44 Last Admin: 12/18/20 14:00 Dose: 125 mls/hr Documented by: Sodium Chloride (Normal Saline) 500 mls @ 50 mls/hr IV ASDIRECTED [facility] Last Admin: 12/22/20 10:23 Dose: 50 mls/hr Documented by: Potassium Chloride 40 meq/ (Premix) 100 mls @ 25 mls/hr IV ONETIME ONE Stop: 12/24/20 13:59 Last Admin: 12/24/20 12:24 Dose: 25 mls/hr Documented by: Sodium Chloride (Normal Saline) 100 mls @ 25 mls/hr IV ASDIRECTED [facility] Sodium Chloride (Normal Saline) 1,000 mls @ 250 mls/hr IV ONETIME ONE Stop: 12/24/20 18:25 Last Admin: 12/24/20 14:55 Dose: 250 mls/hr Documented by: Levofloxacin/Dextrose 500 mg/ (Premix) 100 mls @ 100 mls/hr IV ONETIME ONE Stop: 12/25/20 14:59 Last Admin: 12/25/20 15:55 Dose: 100 mls/hr Documented by: Levofloxacin/Dextrose 250 mg/ (Premix) 50 mls @ 50 mls/hr IV Q24H [facility] Last Admin: 12/26/20 15:12 Dose: 50 mls/hr Documented by: Levofloxacin (Levofloxacin 500 Mg Tab) 250 mg PO Q24H [facility] Last Admin: 12/27/20 07:38 Dose: 250 mg Documented by: Lisinopril (Lisinopril 10 Mg Tab) 10 mg PO DAILY [facility] Last Admin: 12/27/20 07:38 Dose: 10 mg Documented by: Loperamide HCl (Loperamide 2 Mg Cap) 4 mg PO Q6H PRN PRN Reason: Diarrhea Last Admin: 12/25/20 01:57 Dose: 4 mg Documented by: Mometasone Furoate/Formoterol Fumar (Formoterol/Mometasone 200-5 Mcg 8.8 Gm Inhaler) 0 puff IH BID [facility] Last Admin: 12/21/20 07:47 Dose: 2 puff Documented by: Mometasone Furoate/Formoterol Fumar (Formoterol/Mometasone 200-5 Mcg 8.8 Gm Inhaler) 2 puff IH BID [facility] Last Admin: 12/27/20 07:42 Dose: 2 puff Documented by: Multivitamins/Minerals/Vitamin C (Multivitamin Tab) 1 tab PO DAILY [facility] Last Admin: 12/27/20 07:38 Dose: 1 tab Documented by: Ondansetron HCl (Ondansetron 4 Mg/2 Ml Sdv) 4 mg IVPUSH Q4H PRN PRN Reason: Nausea/Vomiting Last Admin: 12/25/20 19:51 Dose: 4 mg Documented by: Oxyquinoline Sulfate (Oxyquinoline/Emollient 0.3% Oint 1 Oz Canister) 0 oz TOP ASDIRECTED PRN PRN Reason: Pain (moderate 4-6) Last Admin: 12/18/20 16:00 Dose: 1 applic Documented by: Pantoprazole Sodium (Pantoprazole 40 Mg Vial) 40 mg IVPUSH BID [facility] Last Admin: 12/26/20 08:40 Dose: 40 mg Documented by: Pantoprazole Sodium (Pantoprazole 40 Mg Tab.Cr) 40 mg PO BIDAC [facility] Last Admin: 12/27/20 07:38 Dose: 40 mg Documented by: Potassium Chloride (Potassium Chloride 10 Meq Tab.Er) 20 meq PO BIDMEALS [facility] Last Admin: 12/22/20 17:06 Dose: 20 meq Documented by: Potassium Chloride (Potassium Chloride 10% 20 Meq/15 Ml Soln 15 Ml Ud Cup) 20 meq PO BIDMEALS [facility] Last Admin: 12/27/20 07:42 Dose: 20 meq Documented by: Sertraline HCl (Sertraline 25 Mg Tab) 50 mg PO DAILY [facility] Last Admin: 12/27/20 07:38 Dose: 50 mg Documented by: Sucralfate (Sucralfate Suspension 1 Gm/10 Ml Cup) 1 gm PO Q6H [facility] Last Admin: 12/21/20 09:34 Dose: 1 gm Documented by: Sucralfate (Sucralfate Suspension 1 Gm/10 Ml Cup) 1 gm PO QIDACANDBED [facility] Last Admin: 12/26/20 07:03 Dose: Not Given Documented by: Sucralfate (Sucralfate 1 Gm Tab) 1 gm PO QIDACANDBED [facility] Last Admin: 12/27/20 07:00 Dose: 1 gm Documented by: Sucralfate (Sucralfate 1 Gm Tab) 1 gm PO ONETIME ONE Stop: 12/27/20 10:22 Last Admin: 12/27/20 11:51 Dose: Not Given Documented by: - Exam General: Reports: Alert, Oriented HEENT: Reports: Mucous Membr. Moist/[place] Neck: Reports: Supple Lungs: Reports: Clear to Auscultation, Normal Respiratory Effort Cardiovascular: Reports: Regular Rate, Regular Rhythm GI/Abdominal Exam: Normal Bowel Sounds, Soft, Non-Tender Extremities: Normal Inspection, No Pedal Edema Skin: Reports: Warm, Dry Neurological: Reports: No New Focal Deficit *Q Meaningful Use (DIS) - VTE *Q VTE Anticoagulation Contraindications: Medical/Procedure Contrai
== END 2020-12-27 11:40 | disposition home or self-care (01) | DRG 379 ==
LOC: CC.MS 09:21 → UNDOADMIN 09:47
PROVIDERS: ADMIT Physician Assistant Medical; ATTEND Family Medicine
PROC: 30233N1 Transfusion of Nonautologous Red Blood Cells into Peripheral Vein, Percutaneous Approach (ICD-10-PCS; principal; 2020-12-18)
DX: K25.4 Chronic or unspecified gastric ulcer with hemorrhage (principal); E87.6 Hypokalemia; R19.7 Diarrhea, unspecified; Z79.899 Other long term (current) drug therapy; Z79.82 Long term (current) use of aspirin; Z66 Do not resuscitate; R50.9 Fever, unspecified
CPT/HCPCS: 36415; 36430; 80048; 80053; 82270; 83735; 85014; 85018; 85025; 86140; 86850; 86900; 86901; 86920; 86922; 87045; 87046; 87493; 89055; A9270-GY; C9113; J1940; J1956; J2405; J3480; J7040; J7050; P9016

== ENCOUNTER 2021-01-17 17:27 | Emergency (ER) | payer MEDICARE, MEDICAID ==
--- NOTE | 2021-01-17 18:16 | EDM.PDOC ---
ED HPI GENERAL MEDICAL PROBLEM - General Chief Complaint: General Stated Complaint: General Illness Time Seen by Provider: 01/17/21 17:35 Source of Information: Reports: Patient, EMS History Limitations: Reports: No Limitations - History of Present Illness INITIAL COMMENTS - FREE TEXT/NARRATIVE: Vanita is an 89 year old female who presents to ER for a near syncopal episode after she had taken a hot shower. States got weak, felt dizzy and was unable to assist herself out of the shower so need her family to help her. Denies dizziness at present. Feels somewhat weak. No abdominal pain, does admit to recurring diarrhea but has not noted blood. Has had issues with diarrhea since last admission here about 3 weeks ago. No fevers. Has been eating and drinking at home. Denies burning with urination. Is answering all questions appropriately. Vital signs stable per EMS. Patient presents with some empty bottles of her medications, ie. Lisinopril. Also appears she is not taking her Protonix as prescribed as only 6 tablets gone from bottle and should be 40 gone. Onset: Today, Sudden Duration: Minutes:, Improving Location: Reports: Generalized Associated Symptoms: Reports: Malaise, Syncope, Weakness. Denies: Confusion, Chest Pain, Cough, Fever/Chills, Loss of Appetite, Nausea/Vomiting, Shortness of Breath Other Treatments ROCK STAR: glucose 245 in route per ems - Related Data Allergies Allergy/AdvReac Type Severity Reaction Status Date / Time aresols Allergy Difficulty Uncoded 01/17/21 17:31 Breathing Home Meds: Home Meds Acetaminophen [Tylenol Extra Strength] 500 mg PO Q8H PRN 06/15/16 [History] Budesonide/Formoterol [Symbicort 160-4.5 MCG] 2 inh INH BID 10/02/20 [History] lisinopriL [Lisinopril] 10 mg PO DAILY 10/02/20 [History] Lutein/Min/Vit C/Vit E Acetate [Ocuvite Lutein] 1 cap PO DAILY 12/15/20 [History] Melatonin 10 mg PO ASDIRECTED PRN 12/15/20 [History] Multivit-Min/Iron/Folic Acid/K [One Daily Women's Multivitamin] 1 tab PO DAILY 0 12/15/20 [History] Sertraline [Zoloft] 50 mg PO DAILY 12/15/20 [History] Pantoprazole [ProTONIX] 40 mg PO BIDAC #60 tab.cr 12/27/20 [Rx] Potassium Chloride 20 meq PO BID #60 tablet.er 12/27/20 [Rx] Sucralfate [Carafate] 1 gm PO QIDACANDBED #52 tablet 12/27/20 [Rx] Past Medical History HEENT History: Reports: Allergic Rhinitis, Glaucoma, Impaired Vision Other HEENT History: wears glasses Cardiovascular History: Reports: CAD, High Cholesterol, Hypertension Respiratory History: Reports: Asthma, COPD Gastrointestinal History: Reports: GERD Other Gastrointestinal History: Hx of ulcers. Genitourinary History: Reports: Other (See Below) Other Genitourinary History: frequency due to weak bladder Musculoskeletal History: Reports: Back Pain, Chronic Neurological History: Reports: CVA, Headaches, Chronic Psychiatric History: Reports: Anxiety, Depression Endocrine/Metabolic History: Reports: Diabetes, Type II Hematologic History: Reports: Blood Transfusion(s) Immunologic History: Reports: None Oncologic (Cancer) History: Reports: Breast Dermatologic History: Reports: None - Infectious Disease History Infectious Disease History: Reports: MRSA, Other (See Below) Other Infectious Disease History: Cleared MRSA x3 - Past Surgical History Head Surgeries/Procedures: Reports: None HEENT Surgical History: Reports: Adenoidectomy, Tonsillectomy GI Surgical History: Reports: Appendectomy, Cholecystectomy Female Surgical History: Reports: Hysterectomy, Mastectomy Musculoskeletal Surgical History: Reports: Knee Replacement Social & Family History - Family History Family Medical History: No Pertinent Family History - Tobacco Use Tobacco Use Status *Q: Never Tobacco User Second Hand Smoke Exposure: Yes - Caffeine Use Caffeine Use: Reports: None - Recreational Drug Use Recreational Drug Use: No - Living Situation & Occupation Living situation: Reports: , Other (living in a house in [place] currently with up to 15 people living in it.) ED ROS GENERAL - Review of Systems Review Of Systems: See Below Constitutional: Reports: Malaise, Weakness, Fatigue. Denies: Fever, Chills, Decreased Appetite HEENT: Denies: Ear Pain, Sinus Problem, Throat Pain, Vertigo Respiratory: Denies: Shortness of Breath, Cough Cardiovascular: Reports: Lightheadedness. Denies: Chest Pain, Edema Endocrine: Reports: Fatigue GI/Abdominal: Reports: Diarrhea. Denies: Abdominal Pain, Constipation, Nausea, Vomiting : Denies: Dysuria Musculoskeletal: Reports: No Symptoms Skin: Reports: No Symptoms Neurological: Reports: Weakness ED EXAM, GENERAL - Physical Exam Exam: See Below Exam Limited By: No Limitations General Appearance: Alert, WD/WN, No Apparent Distress Ears: Normal External Exam, Normal TMs Nose: Normal Inspection, Normal Mucosa, No Blood Throat/Mouth: Normal Inspection, Normal Oropharynx Head: Normocephalic Neck: Normal Inspection, Supple, Non-Tender Respiratory/Chest: No Respiratory Distress, Lungs Clear, Normal Breath Sounds Cardiovascular: Regular Rate, Rhythm GI/Abdominal: Normal Bowel Sounds, Soft, Non-Tender Extremities: Normal Inspection, Pedal Edema (1+) Neurological: Alert, Oriented Skin Exam: Warm, Dry #1 Interpretation EKG Date: 01/17/21 Rhythm: NSR P-Wave: Present QRS: Normal ST-T: Normal Comparison: Other: (improved) Course - Vital Signs Last Recorded V/S: Last Vital Signs Temp 97.9 F 01/17/21 17:27 Pulse 72 01/17/21 17:27 Resp 22 H 01/17/21 17:27 BP 134/73 01/17/21 17:27 Pulse Ox 92 L 01/17/21 17:27 - Orders/Labs/Meds Orders: Active Orders 24 hr Category Date Time Status CULTURE URINE [RM] Stat Lab 01/17/21 17:30 Received EKG 12 Lead [EK] Stat Ther 01/17/21 17:30 Ordered Labs: Laboratory Tests 01/17/21 01/17/21 01/17/21 Range/Units 17:29 17:29 17:30 WBC 6.1 (5.0-10.0) 10^3/uL RBC 3.61 L (4.00-5.50) 10^6/uL Hgb 11.3 L (12.0-16.0) g/dL Hct 35.5 L (37.0-47.0) % MCV 98.3 H (82.0-94.0) fL MCH 31.3 (27.0-32.0) pg MCHC 31.8 L (33.0-38.0) g/dL RDW Coeff of Sylvie 16.1 H (11.0-15.0) % Plt Count 289 (150-400) 10^3/uL Neut % (Auto) 69.1 (35-85) % Lymph % (Auto) 18.6 (10-55) % Bulloch % (Auto) 9.0 (0-16) % Eos % (Auto) 2.8 (0-5) % Baso % (Auto) 0.5 (0-3) % Neut # (Auto) 4.21 (1.80-7.00) 10^3/uL Lymph # (Auto) 1.13 (1.00-4.80) 10^3/uL Bulloch # (Auto) 0.55 (0.00-0.80) 10^3/uL Eos # (Auto) 0.17 (0.00-0.45) 10^3/uL Baso # (Auto) 0.03 10^3/uL Sodium 145 (136-145) mEq/L Potassium 5.2 H D (3.5-5.0) mEq/L Chloride 109 H (98-106) mEq/L Carbon Dioxide 32 (21-32) mmol/L BUN 17 (7-18) mg/dL Creatinine 0.9 (0.6-1.0) mg/dL Est Cr Clr Drug Dosing 31.04 mL/min Estimated GFR (MDRD) 59 L (>=60) mL/min Glucose 211 H D (75-99) mg/dL Calcium 7.9 L (8.4-10.1) mg/dL Magnesium 1.8 (1.8-2.4) mg/dL Total Bilirubin 0.2 (0.0-1.0) mg/dL AST 17 (15-37) U/L ALT 15 (12-78) U/L Alkaline Phosphatase 128 H (46-116) U/L Troponin I 0.024 (0.00-0.06) ng/mL C-Reactive Protein 0.7 (0.2-0.8) mg/dL Total Protein 5.3 L (6.4-8.2) g/dL Albumin 1.8 L (3.4-5.0) g/dL Urine Color Yellow (YELLOW) Urine Appearance Cloudy (CLEAR) Urine pH 6.5 (4.5-8.0) Ur Specific Randolph >= 1.030 H (1.003-1.020) Urine Protein 100 H (NEGATIVE) mg/dL Urine Glucose (UA) Negative (NEGATIVE) mg/dL Urine Ketones Negative (NEGATIVE) mg/dL Urine Occult Blood Large H (NEGATIVE) Urine Nitrite Negative (NEGATIVE) Urine Bilirubin Negative (NEGATIVE) Urine Urobilinogen 1.0 (0.2-1.0) EU/dL Ur Leukocyte Esterase Trace H (NEGATIVE) Urine RBC 30-40 H (0-5) /HPF Urine WBC 10-20 H (0-5) /HPF Ur Squamous Epith Cells Moderate H (NOT SEEN) /HPF Urine Bacteria Many H (NOT SEEN) /HPF Urinalysis Comment - Re-Assessments/Exams Free Text/Narrative Re-Assessment/Exam: 01/17/21 18:18 Labs are all essentially unremarkable. EKG sinus rhythm. 1825 Contacted daughter with results. Will discharge home. Daughter is comfortable with that. Patient transferred to [facility], did quite well. Slow and purposeful. No dizziness. Departure - Departure Time of Disposition: 18:26 Disposition: Home, Self-Care 01 Condition: Fair Clinical Impression: Near syncope - Discharge Information *PRESCRIPTION DRUG MONITORING PROGRAM REVIEWED*: No *COPY OF PRESCRIPTION DRUG MONITORING REPORT IN PATIENT JUSTINA: No Instructions: Near-Syncope, [id number] Referrals: PCP,Unknown [Primary Care Provider] - Forms: ED Department Discharge Additional Instructions: 1. Push fluids 2. Slow cautious movements when up 3. Usual meds, ensure is taking Protonix twice a day as recommended as well as her Carafate. 4. call or return if any further concerns. Sepsis Event Note (ED) - Evaluation Sepsis Screening Result: No Definite Risk - Focused Exam Vital Signs: Vital Signs Temp Pulse Resp BP Pulse Ox 01/17/21 17:27 97.9 F 72 22 H 134/73 92 L - My Orders Last 24 Hours: My Active Orders 01/17/21 17:30 CULTURE URINE [RM] Stat EKG 12 Lead [EK] Stat - Assessment/Plan Last 24 Hours: My Active Orders 01/17/21 17:30 CULTURE URINE [RM] Stat EKG 12 Lead [EK] Stat
[2021-01-17 18:37] VITALS: BP 122/74; PULSE 66
== END 2021-01-17 18:54 | disposition home or self-care (01) ==
LOC: CC.ED 17:27
DX: R55 Syncope and collapse (principal); I25.10 Atherosclerotic heart disease of native coronary artery without angina pectoris; I10 Essential (primary) hypertension; K21.9 Gastro-esophageal reflux disease without esophagitis; E11.9 Type 2 diabetes mellitus without complications; Z79.899 Other long term (current) drug therapy; Z91.048 Other nonmedicinal substance allergy status
CPT/HCPCS: 36415; 80053; 81001; 83735; 84484; 85025; 86140; 87086; 87186; 93005; 93010; 99284; 99284-25